=== PATIENT | male | born 1960 | race Caucasian/White ===

== ENCOUNTER 2019-03-27 12:13 | Inpatient (IN) | payer BC ==
--- NOTE | 2019-03-20 15:25 | HP ---
AMENDED REPORT NOW INCLUDES DESIGNATED COSIGNER PREOPERATIVE HISTORY AND PHYSICAL: DATE OF SCHEDULED SURGERY: 03/27/19 DATE OF OFFICE VISIT: 03/19/19 ATTENDING PHYSICIAN: Dr. Latanya Clark.* (DICTATED BY PAMELLA STANTON) SURGERY SCHEDULED: Left total knee arthroplasty. CHIEF COMPLAINT: Left knee pain. HISTORY OF PRESENT ILLNESS: Mr. Tracey is a 58-year-old male with severe left knee pain secondary to advanced osteoarthritis. He has difficulty weightbearing and walking more than a block. He has failed conservative management with anti- inflammatories, pain medications, steroid injection, viscosupplementation injections, and physical therapy. He has now elected to proceed with left total knee arthroplasty. PAST MEDICAL HISTORY: Significant for hypertension, hypercholesterolemia, questionable colitis. PAST SURGICAL HISTORY: He has had previous right knee arthroscopy, right total knee arthroplasty done in [place], bilateral carpal tunnel release, tonsillectomy, bilateral cataract surgery, left knee arthroscopy. MEDICATIONS: 1. Lisinopril 40 mg daily. 2. Spironolactone 25 mg half tab p.o. daily. 3. Hydrochlorothiazide 25 mg 1 p.o. daily. 4. Alfuzosin ER 10 mg p.o. daily. 5. Fenofibrate 48 mg daily. 6. Simvastatin 20 mg q.h.s. ALLERGIES: No known drug allergies. FAMILY HISTORY: Sister with a history of hypertension. Mother with a history of liver cancer and father with a history of liver cancer, both . Daughter with a history of ulcerative colitis. SOCIAL HISTORY: The patient lives with his spouse. He is retired from [employer]. He is a former smoker. He does not use alcohol. Denies illicit drug use. REVIEW OF SYSTEMS: The patient denies recent loss of consciousness, lightheadedness, dizziness, shortness of breath, chest pain, or palpitations. He has had a bout of diarrhea that lasted roughly 5 days. It was felt to be a bout of colitis. He was placed on prednisone for 2 days and this has resolved. He denies urinary symptoms. PHYSICAL EXAMINATION GENERAL: He is a well-developed, well-nourished 58-year-old male, pleasant, cooperative, in no acute distress. VITAL SIGNS: Show a height of 73 inches, weight 275, pulse 69, BP 124/78, temperature 96.4. HEENT: PERRLA. EOMI. LUNGS: Clear to auscultation without wheeze. HEART: Regular rate and rhythm. No murmur auscultated. ABDOMEN: Obese, soft, nontender, nondistended. Normoactive bowel sounds x4. EXTREMITIES: Left lower extremity shows the patient's skin to be intact. No abrasions or open wounds. There is tenderness along the medial joint line with noted mild effusion, 10 degrees to 120 degrees flexion with patellofemoral crepitus and pain. There is no varus or valgus instability. His neurovascular status is intact distally. He has active dorsiflexion of the left ankle. DIAGNOSTIC STUDIES/LAB DATA: Radiographs of the left knee revealed bone-on- bone contact of the patellofemoral compartment with noted tricompartmental joint space narrowing and osteophyte formation with subchondral sclerosis. ASSESSMENT: Advanced osteoarthritis of the left knee. PLAN: The patient is scheduled to undergo left total knee arthroplasty, . He has been cleared for surgery by his primary care provider. He will follow up in 10 to 14 days postoperatively for suture removal. PAMELLA STANTON [id number]/[facility] #: [id number] MTDD
[~2019-03-27 12:13] MED LIST: Acetaminophen TAB* 325 MG PO ONE; Buffered Lidocaine 1% SYRIN* 1 ML/SYRINGE INTRADERM ONE; Famotidine IV* 10 MG/ML 2 ML (20 mg) IV ONE; Gabapentin CAP(*) 300 MG PO ONE; Lactated Ringers 1000 ML Bag* 1,000 ML IV SCH; Tranexamic Acid 1,000 MG in NS 0.9% 50 ML* (outpatient use) IV SCH; celeCOXIB CAP* 200 MG PO ONE
[2019-03-27] MEDS ORDERED: Buffered Lidocaine 1% SYRIN* 1 ML/SYRINGE INTRADERM ONE (12:39)
[2019-03-27] MEDS ORDERED: Acetaminophen TAB* 325 MG ONE (12:39)
[2019-03-27] MEDS ORDERED: Famotidine IV* 10 MG/ML 2 ML (20 mg) ONE (12:39)
[2019-03-27] MEDS ORDERED: Gabapentin CAP(*) 300 MG ONE (12:39)
[2019-03-27] MEDS ORDERED: celeCOXIB CAP* 200 MG ONE (12:39)
[2019-03-27] MEDS ORDERED: ceFAZolin 2 GM in NS PREMIX(*) 2 GM/100 ML BAG IVPB ONE (12:40)
[2019-03-27] MEDS ORDERED: Dexamethasone IV* 4 MG/ML 1 ML (4 MG) ONE (13:02)
[2019-03-27] MEDS ORDERED: Midazolam* 1 MG/ML 10 ML VIAL (10 MG) ONE (13:02)
[2019-03-27] MEDS ORDERED: KETAMINE HCL* 50 MG/ML 10 ML VIAL ONE (13:02)
[2019-03-27] MEDS ORDERED: fentaNYL* 50 MCG/ML 2 ML VIAL (100 MCG VIAL) ONE ×2 (13:02→17:45)
[2019-03-27] MEDS ORDERED: Ondansetron INJ* 2 MG/ML VIAL ONE (13:02)
[2019-03-27] MEDS ORDERED: Propofol* 10 MG/ML 20 ML BTL ONE (13:02)
[2019-03-27] MEDS ORDERED: ROPIVACAINE 5 MG/ML 30 ML BTL (0.5%) ONE ×3 (13:02→16:32)
[2019-03-27] MEDS ORDERED: Lidocaine 2% PF * 5 ML VIAL ONE ×2 (13:02→15:21)
[2019-03-27] MEDS ORDERED: ceFAZolin 1 GM ADVAN(*) 1 GM ADDV.VIAL IVPB ONE (13:24)
--- OUTSIDE RECORDS SUMMARY | 2019-03-27 14:31 | XMS REPORT | Continuity of Care Document ---
:1960 External Reference #:[id number] Author Name Venus Gregory Care Team Providers Name Role Phone John Castillo MD Primary Care Physician Unavailable Payers Date Identification Numbers Payment Provider Subscriber Policy Number: [id number] BS Facets John Tracey PayID: [id number] [address] [address] [place] [address] Problems Active Problems Provider Date Localized, primary osteoarthritis Latanya Clark M.D. Onset: 01/27/2019 Localized, primary osteoarthritis of the pelvic Latanya Clark M.D. Onset: region and thigh Other tear of medial meniscus, current injury, Latanya Clark M.D. Onset: left knee, subsequent encounter Family History Date Family Member(s) Observation Comments General Hypertension General Cancer Social History Type Date Description Comments Sex Unknown Lives With Spouse Occupation Retired ETOH Use Currently consumes alcohol Tobacco Use Start: Unknown End: Patient is a former smoker Unknown Smoking Status Reviewed: 03/10/19 Patient is a former smoker Exercise Type/Frequency Exercises regularly Allergies, Adverse Reactions, Alerts Description No Known Drug Allergies Medications Active Medications SIG Qnty Indications Ordering Date Provider [place] take 1 tab by 30tabs Latanya Clark, 02/17/2019 5-325mg Tablets mouth every 8 M.D. hours as needed for pain Tramadol HCL 1 tab every 8 21tabs Latanya Clark, 02/03/2019 50mg Tablets hours as M.D. needed for pain Voltaren 4 grams four 100gm Ankit Marianela, 01/13/2019 1% Gel times daily MD to left knee and left hip as needed for pain Lisinopril 1 by mouth Unknown 40mg Tablets every day Spironolactone 1/2 by mouth Unknown 25mg Tablets every day Hydrochlorothiazide 1 by mouth Unknown 25mg Tablets every day Alfuzosin HCL ER 1 by mouth Unknown 10mg Tablets ER every day 24HR Fenofibrate Unknown 50mg Capsules Medications Administered in Office Medication SIG Qnty Indications Ordering Provider Date Synvisc Or Synvisc-One Injection 1 Latanya Clark M.D. 02/17/2019 MG Injection Depomedrol 40MG Latanya Clark M.D. 01/13/2019 Injection Vital Signs Date Vital Result Comment 03/10/2019 8:49am Height 73 inches 6'1" Weight 271.00 lb BP Systolic 132 mmHg BP Diastolic 82 mmHg Respiratory Rate 18 /min Body Temperature 96.0 F Pain Level 6 BMI (Body Mass Index) 35.8 kg/m2 02/17/2019 1:12pm Height 73 inches 6'1" Weight 271.00 lb Heart Rate 76 /min Respiratory Rate 16 /min Pain Level 7 BMI (Body Mass Index) 35.8 kg/m2 02/06/2019 9:00am Height 73 inches 6'1" Weight 270.00 lb Heart Rate 55 /min BP Systolic 138 mmHg BP Diastolic 80 mmHg Body Temperature 98.0 F Pain Level 8 BMI (Body Mass Index) 35.6 kg/m2 01/27/2019 8:00am Height 73 inches 6'1" Heart Rate 70 /min BP Systolic 152 mmHg BP Diastolic 86 mmHg Respiratory Rate 16 /min Body Temperature 97.0 F Pain Level 6 01/13/2019 10:34am Height 73 inches 6'1" Weight 273.00 lb Heart Rate 72 /min BP Systolic 122 mmHg BP Diastolic 72 mmHg Respiratory Rate 12 /min Pain Level 5 BMI (Body Mass Index) 36.0 kg/m2 Procedures Date Code Description Status 02/17/201993015 Inject/Drain Joint/Bursa Major W/O US Completed 01/13/201945352 Inject/Drain Joint/Bursa Major W/O US Completed Encounters Type Date Location Provider Dx Diagnosis Office Visit 02/06/2019 [facility] Iliana Granados M25.562 Pain in left knee 9:15a [facility] M17.12 Unilateral primary osteoarthritis, left knee Office Visit 01/27/2019 8:00a [facility] Latanya Eduardo, M25.562 Pain in left Of C.M.Violet Suresh.Alex knee M17.12 Unilateral primary osteoarthritis, left knee M25.552 Pain in left hip M16.12 Unilateral primary osteoarthritis, left hip S83.242A Oth tear of medial meniscus, current injury, left knee, init Office Visit 01/13/2019 10:00a [facility] Latanya Clark, M25.562 Pain in left Of C.M.Violet Randhawa knee M17.12 Unilateral primary osteoarthritis, left knee M25.552 Pain in left hip M16.12 Unilateral primary osteoarthritis, left hip M23.8x2 Other internal derangements of left knee Plan of Treatment Future Appointment(s):04/01/2019 9:30 am - Latanya Clark M.D. at [facility]03/19/2019 9:30 am - Latanya Clark M.D. at [facility]03/10/2019 - Latanya Clark M.D.M25.562 Pain in left kneeFollow up:Follow up: 7-10 days before xcnhdhyZ78.12 Unilateral primary osteoarthritis, left kneeM25.462 Effusion, left knee
--- OUTSIDE RECORDS SUMMARY | 2019-03-27 14:31 | XMS REPORT | Continuity of Care Document ---
:1960 External Reference #:[id number] Author Name Latanya Clark M.D. (transmitted by agent of provider Katiana Khan) Address [address] [place] [id number] Care Team Providers Name Role Phone John Castillo MD - Family Medicine Care Team Information Managing Manager Problems Active Problems Provider Date Localized, primary osteoarthritis Latanya Clark M.D. Onset: 01/27/2019 Localized, primary osteoarthritis of the pelvic Latanya Clark M.D. Onset: region and thigh Other tear of medial meniscus, current injury, Latanya Clark M.D. Onset: left knee, subsequent encounter Social History Type Date Description Comments Sex Unknown ETOH Use Currently consumes alcohol Tobacco Use Start: Unknown End: Patient is a former smoker Unknown Smoking Status Reviewed: 03/19/19 Patient is a former smoker Exercise Type/Frequency Exercises regularly Allergies, Adverse Reactions, Alerts Description No Known Drug Allergies Medications Active Medications SIG Qnty Indications Ordering Date Provider Cyclobenzaprine HCL take 1 tab 30tabs Latanya Clark, 03/13/2019 10mg Tablets three times a M.D. day as needed for pain/muscle spasms [facility] take 1 tab by 30tabs Latanya Clark, [...] Depomedrol 40MG Latanya Clark M.D. 01/13/2019 Injection Immunizations Description No Information Available Vital Signs Date Vital Result Comment 03/19/2019 9:49am Height 73 inches 6'1" Weight 275.00 lb Heart Rate 69 /min BP Systolic 124 mmHg BP Diastolic 78 mmHg Body Temperature 96.4 F O2 % BldC Oximetry 97 % BMI (Body Mass Index) 36.3 kg/m2 03/10/2019 8:49am Height 73 inches 6'1" Weight 271.00 lb BP Systolic 132 mmHg BP Diastolic 82 mmHg Respiratory Rate 18 /min Body Temperature 96.0 F Pain Level 6 BMI (Body Mass Index) 35.8 kg/m2 Results Test Date Facility Test Result H/L Range Note Inr/Protime [facility] Inr 0.97 Normal 0.82-1.09 1 , [address] [place], [place] [id number] [phone] Laboratory test [facility] Partial 32.7 seconds Normal 26.0-38.0 3 finding [address] [place] [address] PTT [phone] Type & Screen [facility] Patient AB Negative [address] [place] [address] [phone] Antibody Screen NEGATIVE 1 PAIN IN LEFT KNEE, UNILATERAL PRIMARY OSTEOARTHRIT 2 Standard intensity warfarin therapeutic range: 2.0-3.0 High intensity warfarin therapeutic range: 2.5-3.5 3 AA 03/27 Procedures Date Code Description Status 02/17/2019 Inject/Drain Joint/Bursa Major W/O US Completed 01/13/2019 Inject/Drain Joint/Bursa Major W/O US Completed Medical Devices Description No Information Available Encounters Type Date Location Provider Dx Diagnosis Office Visit 03/10/2019 Orthopedic Latanya Clark, M25.562 Pain in left knee 8:45a [facility]hawa M17.12 Unilateral primary osteoarthritis, left knee M25.462 Effusion, left knee Office Visit 02/06/2019 9:15a [facility]opedic Iliana Keene M25.562 Pain in [facility] left knee M17.12 Unilateral primary osteoarthritis, left knee Office Visit 01/27/2019 8:00a [facility] Latanya Clark M25.562 Pain in left Of Yuriy Randhawa knee M17.12 Unilateral primary osteoarthritis, left knee M25.552 Pain in left hip M16.12 Unilateral primary osteoarthritis, left hip S83.242A Oth tear of medial meniscus, current injury, left knee, init Office Visit 01/13/2019 10:00a [facility] Latanya Clark, M25.562 Pain in left Of Yuriy Randhawa knee M17.12 Unilateral primary osteoarthritis, left knee M25.552 Pain in left hip M16.12 Unilateral primary osteoarthritis, left hip M23.8x2 Other internal derangements of left knee Assessments Date Code Description Provider 03/19/2019 M25.562 Pain in left knee Latanya Clark M.D. 03/19/2019 M17.12 Unilateral primary osteoarthritis, left knee Latanya Clark M.D. 03/10/2019 M25.562 Pain in left knee Latanya Clark M.D. 03/10/2019 M17.12 Unilateral primary osteoarthritis, left knee Latanya Clark M.D. 03/10/2019 M25.462 Effusion, left knee Latanya Clark M.D. 02/17/2019 M25.562 Pain in left knee Latanya Clark M.D. 02/17/2019 M17.12 Unilateral primary osteoarthritis, left knee Latanya Clark M.D. 02/06/2019 M25.562 Pain in left knee PAMELLA Valdez 02/06/2019 M17.12 Unilateral primary osteoarthritis, left knee PAMELLA Valdez 01/27/2019 M25.562 Pain in left knee Kerwin Arango.Alex 01/27/2019 M17.12 Unilateral primary osteoarthritis, left knee Latanya Clark M.D. 01/27/2019 M25.552 Pain in left hip Latanya Clark M.D. 01/27/2019 M16.12 Unilateral primary osteoarthritis, left hip Latanya lCark M.D. 01/27/2019 S83.242A Other tear of medial meniscus, current Latanya Clark M.D. injury, left knee, in 01/13/2019 M25.562 Pain in left knee Kerwin Arango.Alex 01/13/2019 M17.12 Unilateral primary osteoarthritis, left knee Latanya Clark M.D. 01/13/2019 M25.552 Pain in left hip Latanya Clark M.D. 01/13/2019 M16.12 Unilateral primary osteoarthritis, left hip Latanya Clark M.D. 01/13/2019 M23.8x2 Other internal derangements of left knee Latanya Clark M.D. Plan of Treatment Future Appointment(s):04/09/2019 1:45 pm - [facility] 3:30 pm - DEONTE Fisher [facility]03/27/2019 3:30 pm - DEONTE Sage [facility]03/27/2019 3:30 pm - [facility]03/19/2019 - Latanya Clark M.D.M25.562 Pain in left kneeFollow up:Follow up: 10- 14 days post opM17.12 Unilateral primary osteoarthritis, left knee Functional Status Description No Information Available Mental Status Description No Information Available Referrals Description No Information Available
--- OUTSIDE RECORDS SUMMARY | 2019-03-27 14:31 | XMS REPORT | Continuity of Care Document ---
:1960 External Reference #:[id number] Author Name Calos Santizo Care Team Providers Name Role Phone John Castillo MD Primary Care Physician Unavailable Payers Date Identification Numbers Payment Provider Subscriber Policy Number: [id number] BS Facets John Tracey PayID: [id number] [address] [address] [place] [address] Problems Active Problems Provider Date Localized, primary [...] M.D. day as needed for pain/muscle spasms [place] take 1 tab by 30tabs Latanya Clark, [...] Injection Vital Signs Date Vital Result Comment 03/19/2019 [...] 36.0 kg/m2 Procedures Date Code Description Status 02/17/2019 38876 Inject/Drain Joint/Bursa Major W/O US Completed 01/13/2019 64570 Inject/Drain Joint/Bursa Major W/O US Completed Encounters Type Date Location Provider Dx Diagnosis Office Visit 02/06/2019 [facility] Iliana Granados M25.562 Pain in left knee 9:15a [facility] M17.12 Unilateral primary osteoarthritis, left knee Office Visit 01/27/2019 8:00a [facility] Latanya Clark, M25.562 Pain in left Of C.Abel Randhawa knee M17.12 Unilateral primary osteoarthritis, left knee M25.552 Pain in left hip M16.12 Unilateral primary osteoarthritis, left hip S83.242A Oth tear of medial meniscus, current injury, left knee, init Office Visit 01/13/2019 10:00a [facility] Latanya Clark, M25.562 Pain in left Of C.Abel Randhawa knee M17.12 Unilateral primary osteoarthritis, left knee M25.552 Pain in left hip M16.12 Unilateral primary osteoarthritis, left hip M23.8x2 Other internal derangements of left knee Plan of Treatment Future Appointment(s):04/09/2019 1:45 pm - Harris Plaza PA-C at [facility]03/27/2019 12:30 pm - DEONTE Fisher at [facility]03/27/2019 12:30 pm - DEONTE Sage at [facility]03/27/2019 12:30 pm - Latanya Clark M.D. at [facility]03/19/2019 - Latanya Clark M.D.M25.562 Pain in left kneeFollow up:Follow up: 10- 14 days post opM17.12 Unilateral primary osteoarthritis, left knee
[2019-03-27] MEDS ORDERED: Bupivacaine 0.5% SDV PF* 30ML VIAL ONE (14:43)
[2019-03-27] MEDS ORDERED: Labetalol IV* 5 MG/ML 20 ML VIAL ONE (15:38)
[2019-03-27] MEDS ORDERED: Naloxone* 0.4 MG/ML 1 ML VIAL IV PRN (17:19)
[2019-03-27] MEDS ORDERED: HYDROmorphone INJ1* 1 MG/ML SYRINGE IV PRN (17:19)
[2019-03-27] MEDS ORDERED: Ondansetron INJ* 2 MG/ML VIAL IV PRN ×2 (17:19→17:54)
[2019-03-27] MEDS ORDERED: fentaNYL* 50 MCG/ML 2 ML VIAL (100 MCG VIAL) IV PRN (17:19)
[2019-03-27] MEDS ORDERED: Midazolam* 1 MG/ML 2 ML VIAL (2 MG) ONE (17:33)
[2019-03-27] MEDS ORDERED: Magnesium Hydroxide LIQ* 30 ML UDC PO PRN (17:47)
[2019-03-27] MEDS ORDERED: traMADol TAB* 50 MG PO PRN (17:54)
[2019-03-27] MEDS ORDERED: diPHENhydraMINE PO* 25 MG PO PRN (17:54)
[2019-03-27] MEDS ORDERED: diPHENhydraMINE IV* 50 MG/ML 1 ml VIAL (BENADRYL) IV PRN (17:54)
[2019-03-27] MEDS ORDERED: Polyethylene Glycol 3350* 17 GM PACKET PO PRN (17:54)
[2019-03-27] MEDS ORDERED: Bisacodyl SUPP* 10 MG SUPP PR PRN (17:54)
[2019-03-27] MEDS ORDERED: Cyclobenzaprine TAB* 10 MG PO PRN (17:54)
[2019-03-27] MEDS ORDERED: oxyCODONE/Acetamin 5/325 MG* TAB PO PRN (17:57)
[2019-03-27] MEDS ORDERED: Lactated Ringers 1000 ML Bag* 1,000 ML IV SCH (18:00)
--- NOTE | 2019-03-27 20:04 | CONS ---
CONSULTATION REPORT: DATE OF CONSULT: 03/27/19 PRIMARY CARE PROVIDER: Dr. Castillo. ORTHOPEDIC SURGEON: Dr. Clark. REQUESTING PROVIDER: Dr. Clark. REASON FOR CONSULT: Medical co-management. HISTORY OF PRESENT ILLNESS: Mr. Tracey is a 58-year-old male with a history of hypertension and hyperlipidemia, who has severe left knee osteoarthritis and underwent an elective left total knee arthroplasty. The patient was seen in the immediate postoperative period. He is quite drowsy at this point. He does not answer many of my questions. He is able to tell me as well as nursing that his feet are bothering him. He states that they feel itchy. PAST MEDICAL HISTORY: 1. Hypertension. 2. Hyperlipidemia. 3. Possible colitis. PAST SURGICAL HISTORY: 1. Right knee arthroscopy. 2. Right knee arthroplasty. 3. Bilateral carpal tunnel release. 4. Tonsillectomy. 5. Bilateral cataract surgery. 6. Left knee arthroscopy. MEDICATIONS: Current active hospital medications are reviewed. ALLERGIES: No known drug allergies. FAMILY HISTORY: Mom had a history of liver cancer. Dad had history of liver cancer. Both are . The patient has a sister with hypertension and his daughter has ulcerative colitis. SOCIAL HISTORY: The patient is . He is a former smoker. He does not drink. He is retired from [employer]. REVIEW OF SYSTEMS: Unobtainable due to the patient's drowsiness. PHYSICAL EXAM: Blood pressure 91/65, pulse 66, respirations 9, temp 97, O2 sat 95% on 6 L. General: The patient is a well-developed, middle-aged male seen in the PACU, lying in a stretcher, drowsy, but arousable to calling his name and light touch. Cardiac: Normal S1, S2. Regular rate and rhythm. I do not appreciate any murmurs. There is no lower extremity edema. Pulmonary: Lungs are clear to auscultation anteriorly and at the lateral bases. Abdomen: Bowel sounds present. Abdomen is soft, nontender, nondistended. Musculoskeletal: The patient's left knee is in a surgical dressing. It is not taken down by myself. There are no obvious joint deformities. Skin is warm and dry. There are no rashes. Neuro exam is deferred. Psych: The patient again is quite drowsy and the rest of the exam is deferred. ASSESSMENT AND PLAN: Mr. Tracey is a 58-year-old male with a history of hypertension, obesity, and hyperlipidemia who is seen for medical co-management. 1. Left total knee arthroplasty. Management of this is as per Orthopedics including DVT prophylaxis. 2. Hypertension. BP currently is soft. I am going to hold his hydrochlorothiazide tomorrow morning. We will continue his lisinopril, though I will put hold parameters. These will likely be able to be restarted tomorrow , though I did not want the patient to inadvertently receive these when his blood pressure is still soft. 3. Hyperlipidemia. We will continue statin and fenofibrate. 4. Hypoxia. The patient is moderately hypoxic in the recovery room. He is again quite drowsy at this time. With recovery, I would like to see his O2 requirements decrease. He is obese and perhaps there is a component of obstructive sleep apnea. We will monitor his respiratory status and O2 saturations. 5. DVT prophylaxis: The patient is to start on Eliquis tomorrow morning per Orthopedics. 6. Code status is full. TIME SPENT: Thirty minutes was spent on this consultation. [id number]/[facility] #: [id number] DINO
[2019-03-27] MEDS ORDERED: Apixaban* 2.5 MG TAB PO SCH (21:00)
[2019-03-27] MEDS: Docusate CAP* 100 MG PO SCH (21:26)
[2019-03-27] MEDS: oxyCODONE TAB* 5 MG TAB PO PRN (21:26)
[2019-03-27] MEDS: Acetaminophen TAB* 325 MG PO SCH (21:28)
[2019-03-27] MEDS: Magnesium Hydroxide LIQ* 30 ML UDC PO SCH (21:29)
--- NOTE | 2019-03-27 22:57 | OP ---
Operative Report - Blank - Operative Report Date of Operation: 03/27/19 Note: MARIAJOSE MALONE 1960 Date of Surgery: 03/27/19 Latanya Clark MD Hand Hardener: Alex CAN did help throughout the procedure with preparation of the knee, wound retraction, manipulation of the knee, and wound closure. Anesthesiologist: Aj Mir MD Anesthesia Type: Spinal Preoperative Diagnosis: Left severe degenerative osteoarthritis of the knee Postoperative Diagnosis: As above Procedure Performed: Left Total Knee Arthroplasty Tourniquet time: 52 minutes Complications: None Specimen: Bone and cartilage from the Left knee joint sent to pathology. Hardware Used: Cemented Dugan and Nephew total knee hardware was used - For the femur a size 7 left oxinium legion posterior stabilized femoral component, for the tibia a size 6 left teresa II tibial baseplate, for the insert a size 11mm 5-6 posterior stabilized articular polyethylene insert, and for the patella a size 38 3-peg all poly patella. Brief History/Indication: MARIAJOSE MALONE was known in clinic and had a history of severe left knee pain and swelling. He failed conservative treatment with anti-inflammatories, pain pills, intra-articular injections and physical therapy. He elected to undergo left total knee arthroplasty due to continued pain and decreased quality of life. Radiographs showed severe end stage osteoarthritis of the knee with bone on bone contact. Informed consent was obtained from the patient. He understood the risks of surgery included but were not limited to: bleeding, infection, damage to nearby structures, intraoperative fracture, nerve palsy, failure of the hardware, early loosening, knee stiffness or loss of motion, anesthesia complications, stroke, heart attack , blood clot and . He wished to proceed. Intra-Operative Findings: Intraoperatively the patient was noted to have severe loss of cartilage in all 3 compartments of the knee. Description of the Procedure: MARIAJOSE MALONE was identified in the preanesthesia unit. His left knee was marked as the correct operative side. Informed consent was signed and placed in the chart. The patient was taken to the operating room and placed under anesthesia without complication. A kramer catheter was placed. A tourniquet was placed on the left thigh. The left lower extremity was prepped and draped in the usual sterile fashion. Preoperative time-out was made to correctly identify the patient, side and site. Appropriate intraoperative antibiotics were given within one hour of incision. Tourniquet was inflated. A midline incision was made and carried sharply down to the extensor mechanism. A new 10 blade was used to make a standard medial parapatellar arthrotomy. The patella was subluxed laterally. Electrocautery was used to dissect soft tissue off the superomedial tibia to the midsagittal plane. The knee was flexed up. The anterior horn of the lateral meniscus and the ACL were sharply incised. A drill was used to enter the distal femur. The intramedullary distal femoral cutting guide was pinned on the distal femur. The oscillating saw was used to make the distal femoral cut. The external rotation guide was pinned on the distal femur and the distal femur was sized to a size 7. The size 7 multi-cutting jig was pinned on the distal femur. The oscillating saw was used to make the appropriate 4 chamfer cuts. Next the PCL was completely released. The extramedullary tibial cutting guide was pinned on the proximal tibia and the oscillating saw was used to make the proximal tibial cut perpendicular to the mechanical axis of the tibia. The bone was carefully removed. The knee was brought out into full extension. The spacer block was placed and had excellent fit with the knee in full extension. The medial and lateral ligaments were well balanced. The flexion and extension gaps were well balanced. The knee was flexed up. Lamina nicker and breaker was placed both medially and laterally. Any remaining meniscus was removed with electrocautery. Curved osteotome was used to remove any posterior osteophytes. The tibial tray and drop vamsi were placed and confirmed a satisfactory tibial cut. The size 7 left femoral trial was impacted onto the distal femur. This trial had excellent fit and stability. The box for the posterior stabilized implant was prepared using a box cut osteotome and a reamer. Next a tibial tray trial and 9 mm insert trial was placed. The knee was taken through a range of motion and had full extension to 130 degrees of flexion. Patellofemoral tracking was satisfactory. The patella was inverted and sized to a size 38. Three peg holes were drilled through the size 38 drill guide. The trial patella was placed and the knee was taken through a range of motion. There was satisfactory patellofemoral tracking. All trials were removed. The tibia was subluxed anteriorly and sized to a size 6. The proximal tibial was prepared with a size 6 keel punch. All bony cut surfaces were irrigated with sterile saline and dried. Final implants were cemented into place starting with the tibia, followed by the femur, and last the patella. A 9 mm insert trial was placed and the knee was brought into full extension. Tourniquet was turned down and the knee was copiously irrigated with sterile saline. Electrocautery was used to obtain meticulous hemostasis. Once the cement had fully cured, the insert trial was removed. Any excess cement was removed from around the hardware and capsule. Final insert chosen was a 11 mm posterior stabilized Teresa II articular insert size 5-6. Stability of the insert was checked and noted to be stable. The extensor mechanism was closed using number 1 vicryls. The rest of the incision was closed in a layered fashion using 0 and 2-0 vicryls. The skin was closed using 3-0 nylon suture. Sterile xeroform, 4x4s and webril were used to cover the incision. Que wrap and cold pack were used to cover the dressings. The patients anesthesia was reversed without difficulty. He was taken to the PACU in stable condition. Intended weight-bearing will be as tolerated.
[2019-03-27] MEDS: ceFAZolin 1 GM ADVAN(*) 1 GM in NS 0.9% 50 ML* 50 ML IVPB SCH (23:34)
[2019-03-27] MEDS: Morphine 10 MG/ML VIAL (1 ml) IV PRN (23:35)
[2019-03-28] MEDS: oxyCODONE/Acetamin 5/325 MG* TAB PO PRN ×2 (01:13→07:52)
[2019-03-28] MEDS: Morphine 10 MG/ML VIAL (1 ml) IV PRN ×3 (02:34→11:36)
[2019-03-28] MEDS: oxyCODONE TAB* 5 MG TAB PO PRN ×3 (04:49→14:11)
[2019-03-28 05:24] LABS: Hematocrit 36 % (42-52); Hemoglobin 12.4 g/dL (14.0-18.0); Mean Platelet Volume 7.8 fL (7.4-10.4); Platelet Count 256 10^3/uL (150-450)
[2019-03-28 05:37] LABS: Calcium 8.9 mg/dL (8.6-10.3); EGFR African American 73.3 (>60); EGFR Non-African American 60.6 (>60)
[2019-03-28] MEDS: Acetaminophen TAB* 325 MG PO SCH ×2 (06:01→13:31)
[2019-03-28] MEDS: Docusate CAP* 100 MG PO SCH (07:52)
[2019-03-28] MEDS: ceFAZolin 1 GM ADVAN(*) 1 GM in NS 0.9% 50 ML* 50 ML IVPB SCH (07:53)
[2019-03-28] MEDS: Magnesium Hydroxide LIQ* 30 ML UDC PO SCH (07:54)
[2019-03-28] MEDS ORDERED: Atorvastatin* 10 MG TAB PO SCH (09:00)
[2019-03-28] MEDS ORDERED: LISINOPRIL 40 MG PO SCH (09:00)
[2019-03-28] MEDS ORDERED: Apixaban* 2.5 MG TAB PO SCH (09:00)
[2019-03-28] MEDS ORDERED: Lisinopril TAB* 10 MG PO SCH (09:00)
[2019-03-28] MEDS ORDERED: Hydrochlorothiazide TAB* 25 MG PO SCH (09:00)
[2019-03-28] MEDS ORDERED: Spironolactone TAB* 25 MG PO SCH (09:00)
[2019-03-28] MEDS ORDERED: CMCS:Alfuzosin ER (NF) 10 MG TAB.ER PO SCH (09:00)
[2019-03-28] MEDS ORDERED: oxyCODONE SR TAB(*) 15 MG TAB.SR PO PRN (10:45)
--- NOTE | 2019-03-28 11:12 | DS ---
Orthopedic Discharge Summary - Discharge Summary Date of Admission:03/27/19 Date of Discharge: 03/28/19 Date of Surgery: 03/27/19 Attending Orthopedic Provider: Dr. Clark Pre-operative Diagnosis: Degenerative arthritis left knee Operative Procedure: Left total knee arthroplasty Disposition of Patient: home Condition of Patient: stable History: MARIAJOSE MALONE is a 58 year old M with years of increasingly severe left knee pain. Patient has failed conservative management and has elected to undergo a left total knee replacement Hospital Course: MARIAJOSE was admitted to [facility] on 03/27/19. Patient underwent a left total knee without complication followed by a brief recovery in PACU and transfer to the Short Stay Surgical Unit in stable condition. Our hospitalist service, physical therapy and occupational therapy also participated in this patients care. Post-op day 1: patient was alert and in no acute distress. Dressing was clean, dry and intact. Operative extremity dorsiflexion and plantarflexion intact, sensation intact to light touch distally , DP2+. His dressing was changed, incision was clean, dry and intact. Patient was deemed to be medically and orthopedically stable for discharge. Physical therapy goals were met. Home Medications Medication Instructions Recorded Confirmed Type Alfuzosin HCl [Alfuzosin HCl ER] 10 mg PO QAM 03/19/19 03/27/19 History Fenofibrate(NF) [Tricor(NF)] 48 mg PO QAM 03/19/19 03/27/19 History Hydrochlorothiazide TAB* 25 mg PO QAM 03/19/19 03/27/19 History [Hydrodiuril TAB*] Lisinopril 40 mg PO QAM 03/19/19 03/27/19 History Simvastatin TAB(NF) [Zocor 20 MG 20 mg PO QAM 03/19/19 03/27/19 History (NF)] Spironolactone TAB* [Aldactone TAB 12.5 mg PO QAM 03/19/19 03/27/19 History 25 MG*] Apixaban* [Eliquis*] 2.5 mg PO BID #60 tab 03/28/19 Rx Docusate CAP* [Colace Cap*] 100 mg PO BID cap 03/28/19 Rx oxyCODONE SR TAB(*) [Oxycontin(*)] 30 mg PO Q12H PRN #14 tab.sr MDD 2 03/28/19 Rx oxyCODONE TAB* [Roxycodone TAB 5 10 mg PO Q4H PRN #28 tab MDD 4 03/28/19 Rx mg*] Discharge Instructions following Orthopedic Surgery: Activity: * Weight Bearing as tolerated * Continue physical therapy and occupational therapy exercises as shown Wound care: * OK to shower on post-op day 3, no bathing, swimming, or submerging wound. * Use gentle soap, pat dry. Cover with gauze, NIKKI wrap or tape. * Visiting home nurse to do wound checks. Call Orthopedic office for: * Increased drainage * Redness * Increased pain * Fever Go to ER with shortness of breath or chest pain. Diet: * Regular diet * Increase fluids and fiber to prevent constipation. * Continue to use stool softeners, call office if no bowel motion within 48 hours. Medications See Home Medication List in your packet for medications that you should take after discharge. DVT Prophylaxis: Eliquis Dosin.5 mg, 1 tab every 12 hours x 30 days Pain Control: Oxycontin ER 30 mg by mouth twice daily as needed for pain. Oxycodone 10 mg q 4 hrs prn breakthru pain Antibiotics are required prior to any dental work. FOLLOW UP: Follow up with Dr. Clark Within 10-14 days, call for appointment Please call our office with any questions or concerns ([phone])
[2019-03-28] MEDS ORDERED: Cephalexin CAP* 500 MG PO ONE (15:00)
[2019-03-28 15:40] VITALS: BP 123/58
== END 2019-03-28 16:55 | disposition home or self-care (01) | DRG 302 ==
LOC: AA 12:13 → SSU 20:10
PROVIDERS: ADMIT Orthopaedic Surgery Adult Reconstructive Orthopaedic Surgery; ATTEND Orthopaedic Surgery Adult Reconstructive Orthopaedic Surgery
PROC: 0SRD069 Replacement of Left Knee Joint with Oxidized Zirconium on Polyethylene Synthetic Substitute, Cemented, Open Approach (ICD-10-PCS; principal; 2019-03-27 15:00)
DX: M17.12 Unilateral primary osteoarthritis, left knee (principal); I10 Essential (primary) hypertension; M25.762 Osteophyte, left knee; E78.5 Hyperlipidemia, unspecified; R09.02 Hypoxemia; E66.9 Obesity, unspecified; E78.00 Pure hypercholesterolemia, unspecified; R31.9 Hematuria, unspecified; Z96.651 Presence of right artificial knee joint; Z98.42 Cataract extraction status, left eye; Z98.41 Cataract extraction status, right eye; Z82.49 Family history of ischemic heart disease and other diseases of the circulatory system; Z79.01 Long term (current) use of anticoagulants; Z80.8 Family history of malignant neoplasm of other organs or systems; Z83.79 Family history of other diseases of the digestive system; Z87.891 Personal history of nicotine dependence; Z68.36 Body mass index [BMI] 36.0-36.9, adult
CPT/HCPCS: 36415; 80048; 85014; 85018; 85049; 88305; 88311; A9270-GY; C1776; J0690; J1100; J2250; J2270; J2405; J2704; J2795; J3010; J3490

== ENCOUNTER 2019-04-10 10:51 | Observation (INO) | payer BC ==
--- NOTE | 2019-04-10 11:34 | ED ---
Complex/Multi-Sys Presentation - HPI Summary HPI Summary: This patient is a 58 year old M presenting to [facility] with a chief complaint of generalized weakness and fatigue since 10 days ago. Pt says he developed his weakness shortly after getting his left knee replacement on March 27, 2019. He had a right knee replacement 7 years ago, but did not have these symptoms. Pt has low BP at the moment and states he is able to ambulate. His PCP took him off Lisinopril and hydrochlorothiazide yesterday as he had relatively low BP. His states pt had dark, tea colored urine in the past few days. The patient rates the pain 0/10 in severity. Symptoms aggravated by nothing. Symptoms alleviated by nothing. Pt reports dizziness, nausea, loss of appetite, weight loss, not feeling well, diaphoresis and chills during the night. Pt denies any fever, erythema of eyes, sore throat, CP, SOB, cough, abdominal pain , vomiting, dysuria, hematuria, myalgia, edema, rash. PMHx of HTN and high cholesterol. - History Of Current Complaint Chief Complaint: EDGeneral Time Seen by Provider: 04/10/19 10:59 Hx Obtained From: Patient Onset/Duration: Sudden Onset, Lasting Days - 10, Still Present Timing: Constant Severity Currently: Mild Severity Initially: Mild Aggravating Factor(s): nothing Alleviating Factor(s): nothing Associated Signs And Symptoms: Positive: Weakness, Nausea, Other - positive - fatigue, dizziness, loss of appetite, weight loss, not feeling well, diaphoresis and chills during the night, dark colored urine. negative - erythema of eyes, sore throat, SOB, hematuria, myalgia, rash.. Negative: Cough , Chest Pain, Edema, Vomiting, Abdominal Pain, Dysuria, Fever - Allergies/Home Medications Allergies/Adverse Reactions: Allergies Allergy/AdvReac Type Severity Reaction Status Date / Time No Known Allergies Allergy Verified 04/10/19 10:52 PMH/Surg Hx/FS Hx/Imm Hx Previously Healthy: No Endocrine/Hematology History: Denies: Hx Diabetes Cardiovascular History: Reports: Hx Hypertension Denies: Hx Pacemaker/ICD Respiratory History: Reports: Hx Sleep Apnea Denies: Hx Asthma History: Denies: Hx Renal Disease Musculoskeletal History: Reports: Hx Arthritis Sensory History: Reports: Hx Hearing Aid - BILAT Denies: Hx Contacts or Glasses Opthamlomology History: Denies: Hx Contacts or Glasses Psychiatric History: Denies: Hx Panic Disorder - Cancer History Hx Chemotherapy: No - Surgical History Surgical History: Yes Surgery Procedure, Year, and Place: LEFT KNEE MENISCUS/ARTHROSCOPIC SCRAPPING SURGERY;. RIGHT KNEE REPLACEMENT;. BILAT CARPAL TUNNEL;. CATARACTS;. TONSILLECTOMY; Hx Anesthesia Reactions: No Infectious Disease History: No Infectious Disease History: Denies: Traveled Outside the [place] in Last 30 Days - Family History Known Family History: Positive: None - Social History Alcohol Use: Rare Substance Use Type: Reports: None Smoking Status (MU): Former Smoker Review of Systems Constitutional: Other - positive - loss of appetite, weight loss, not feeling well Positive: Chills - during night, Fatigue, Skin Diaphoresis - during night. Negative: Fever Negative: Erythema Negative: Sore Throat Negative: Chest Pain Negative: Shortness Of Breath, Cough Positive: Nausea. Negative: Abdominal Pain, Vomiting Genitourinary: Other - positive - dark colored urine Negative: dysuria, hematuria Negative: Myalgia, Edema Negative: Rash Neurological: Other - positive - dizziness Positive: Weakness - generalized All Other Systems Reviewed And Are Negative: Yes Physical Exam - Summary Physical Exam Summary: Constitutional: Well-developed, Well-nourished, Alert. (-) Distressed. Mildly confused Skin: Warm, Dry HENT: Normocephalic; Atraumatic Eyes: Conjunctiva normal Neck: Musculoskeletal ROM normal neck. (-) JVD, (-) Stridor, (-) Tracheal deviation Cardio: Rhythm regular, rate normal, Heart sounds normal; Intact distal pulses; The pedal pulses are 2+ and symmetric. Radial pulses are 2+ and symmetric. (-) Murmur Pulmonary/Chest wall: Effort normal. (-) Respiratory distress, (-) Wheezes, (-) Rales Abd: Soft, General ABD pain to palpation, more pain at RLQ and LLQ, (-) Distension, (-) Guarding, (-) Rebound Musculoskeletal: (-) Edema. Left lower back pain. Left CVA tenderness Lymph: (-) Cervical adenopathy Neuro: Alert, Oriented x3 Psych: Mood and affect Normal Triage Information Reviewed: Yes Vital Signs On Initial Exam: Initial Vitals Temp Pulse Resp BP Pulse Ox 97.1 F 74 18 120/85 100 04/10/19 10:52 04/10/19 10:52 04/10/19 10:52 04/10/19 10:52 04/10/19 10:52 Vital Signs Reviewed: Yes Diagnostics - Vital Signs Vital Signs Temp Pulse Resp BP Pulse Ox 04/10/19 10:52 97.1 F 74 18 120/85 100 - Laboratory Result Diagrams: 04/10/19 11:28 04/10/19 11:28 Lab Statement: Any lab studies that have been ordered have been reviewed, and results considered in the medical decision making process. - CT Abd/Pel CT Interpretation Completed By: Radiologist Summary of CT Findings: IMPRESSION: 1. Negative for urolithiasis or hydronephrosis. 2. Follow-up LEFT renal ultrasound suggested to differentiate between a 1.8 cm hyperdense cyst and a solid lesion at the upper pole of the LEFT kidney. 3. Normal appendix documented. Mild colonic diverticulosis. No acute pathologic process of the alimentary tract evident. These findings were reviewed by Dr. Sanchez. - Ultrasound Renal Ultrasound Interpretation Completed By: Radiologist Summary of Ultrasound Findings: IMPRESSION: 1. Stigmata of medical renal disease. 2. Minimally complex Bosniak II cyst versus immediately adjacent simple cysts superior pole LEFT kidney corresponding with the hypodense lesion on CT without concern. These findings were reviewed by Dr. Sanchez. - EKG 1115 Cardiac Rate: NL - 69 EKG Rhythm: Sinus Rhythm Summary of EKG Findings: EKG at 1115 shows 69 BPM, sinus rhythm, no STEMI Complex Multi-Symp Course/Dx Course Of Treatment: This patient is a 58 year old M presenting to [facility] with a chief complaint of generalized weakness and fatigue since 10 days ago. Pt says he developed his weakness shortly after getting his left knee replacement on March 27, 2019. He had a right knee replacement 7 years ago, but did not have these symptoms. Pt has low BP at the moment and states he is able to ambulate. His PCP took him off Lisinopril and hydrochlorothiazide yesterday as he had relatively low BP. His states pt had dark, tea colored urine in the past few days. The patient rates the pain 0/10 in severity. Symptoms aggravated by nothing. Symptoms alleviated by nothing. Pt reports dizziness, nausea, loss of appetite, weight loss, not feeling well, diaphoresis and chills during the night. Pt denies any fever, erythema of eyes, sore throat, CP, SOB, cough, abdominal pain, vomiting, dysuria, hematuria, myalgia, edema, rash. PMHx of HTN and high cholesterol. Physical exam shows pt is mildly confused, has left lower back pain, left CVA tenderness, and general ABD pain to palpation with more pain at RLQ and LLQ. Lab results show RBC 3.85, Hgb 11.5, Hct 33, Plt Count 502, MPV 6.6, absolute monos 0.9, chloride 100, BUN 60, creatinine 2.22, BUN/creatinine ratio 27.0, glucose 104, calcium 11.0, AST 11. EKG at 1115 shows 69 BPM, sinus rhythm, no STEMI. Abd/Pel CT IMPRESSION: 1. Negative for urolithiasis or hydronephrosis. 2. Follow-up LEFT renal ultrasound suggested to differentiate between a 1.8 cm hyperdense cyst and a solid lesion at the upper pole of the LEFT kidney. 3. Normal appendix documented. Mild colonic diverticulosis. No acute pathologic process of the alimentary tract evident. Renal US IMPRESSION: 1. Stigmata of medical renal disease. 2. Minimally complex Bosniak II cyst versus immediately adjacent simple cysts superior pole LEFT kidney corresponding with the hypodense lesion on CT without concern. During ED course pt was given fluids, Zofran INJ, Roxycodone TAB. There is no hyperkalemia, no indication for dialysis, and no required workup for renal failure. At 1318, Dr. Rod accepts pt for admission. Dx are left renal cyst and acute renal failure. - Diagnoses Provider Diagnoses: Renal cyst, left, Acute renal failure - Physician Notifications Discussed Care Of Patient With: Keyla Rod Time Discussed With Above Provider: 13:18 Instructed by Provider To: Other - Dr. Rod accepts pt for admission. Discharge ED - Sign-Out/Discharge Documenting (check all that apply): Patient Departure - admit Patient Received Moderate/Deep Sedation with Procedure: No - Discharge Plan Condition: Stable Disposition: ADMITTED TO [facility] Referrals: John Castillo MD [Primary Care Provider] - - Attestation Statements Document Initiated by Scribe: Yes Documenting Scribe: Pro Perry Provider For Whom Scribe is Documenting (Include Credential): Dr. Win Sanchez MD Scribe Attestation: I, Pro Perry, scribed for Dr. Win Sanchez MD on 04/10/19 at 1340. Status of Scribe Document: Ready
[2019-04-10 11:38] LABS: ABS Basophils 0.1 10^3/ul (0-0.2); ABS Eosinophils 0.2 10^3/ul (0-0.6); ABS Lymphocytes 1.7 10^3/ul (1.0-4.8); ABS Monocytes 0.9 10^3/ul (0-0.8); ABS Neutrophils 6.7 10^3/ul (1.5-7.7); Eosinophil % 1.7 %; Hematocrit 33 % (42-52); Hemoglobin 11.5 g/dL (14.0-18.0); Lymphocyte % 17.5 %; Mean Corpuscular HGB Conc 36 g/dL (31-36); Mean Corpuscular Hemoglobin 30 pg (27-31); Mean Corpuscular Volume 85 fL (80-94); Mean Platelet Volume 6.6 fL (7.4-10.4); Platelet Count 502 10^3/uL (150-450); Red Blood Count 3.85 10^6 /uL (4.18-5.48); Red Cell Distribution Width 14 % (10-15); White Blood Count 9.5 10^3/uL (3.5-10.8)
[2019-04-10 12:00] LABS: Albumin 4.3 g/dL (3.2-5.2); Albumin/Globulin Ratio 1.3 (1-3); EGFR African American 36.7 (>60); EGFR Non-African American 30.4 (>60); Globulin 3.2 g/dL (2-4); Magnesium 2.2 mg/dL (1.9-2.7); Potassium 4.5 mmol/L (3.5-5.0); Total Bilirubin 0.9 mg/dL (0.2-1.0); Total Protein 7.5 g/dL (6.4-8.9)
[2019-04-10] MEDS: NS 0.9% 1000 ML** 2,000 ML IV ONE (12:08)
[2019-04-10 12:38] LABS: TSH (Thyroid Stimulating Horm) 1.85 mcIU/mL (0.34-5.60)
[2019-04-10] MEDS ORDERED: oxyCODONE TAB* 5 MG TAB PO ONE (12:47)
[2019-04-10] MEDS ORDERED: Ondansetron INJ* 2 MG/ML VIAL IV ONE (13:15)
[2019-04-10] MEDS ORDERED: hydrALAZINE IV* 20 MG/ML VIAL IV SLOW PU PRN (14:32)
[2019-04-10 15:03] LABS: Urine Appearance Clear; Urine Bacteria Absent (Absent); Urine Bilirubin Negative (Negative); Urine Blood 1+ (Negative); Urine Color Yellow; Urine Glucose Negative (Negative); Urine Ketones Negative (Negative); Urine Nitrite Negative (Negative); Urine Protein Negative (Negative); Urine Red Blood Cell Trace(0-2/hpf) (Absent); Urine Specific Gravity 1.014 (1.010-1.030); Urine Urobilinogen Negative (Negative); Urine White Blood Cell Trace(0-5/hpf) (Absent)
[2019-04-10 15:11] LABS: C Reactive Protein 30.98 mg/L (<8.01)
[2019-04-10 16:10] LABS: Influenza A Molecular NEGATIVE (Negative); Influenza B Molecular NEGATIVE (Negative)
[2019-04-10] MEDS: NS 0.9% 1000 ML** 1,000 ML IV SCH (16:17)
[2019-04-10 16:46] LABS: Urine Creatinine Concentration 111.84 mg/dL
[2019-04-10 17:15] LABS: Erythrocyte Sed Rate 63 mm/Hr (0-19)
--- NOTE | 2019-04-10 19:09 | HP ---
CC: Dr. John Castillo * HISTORY AND PHYSICAL: DATE OF ADMISSION: 04/10/19 PRIMARY CARE PROVIDER: Dr. John Castillo. ATTENDING PHYSICIAN: Dr. Frost * (dictated by PAMELLA Pablo). CHIEF COMPLAINT: General malaise, cold sweats, abdominal pain, nausea. HISTORY OF PRESENT ILLNESS: Mr. Tracey is a 58-year-old male with a past medical history of hypertension, hyperlipidemia, BPH, possible CKD, who presented to the ER today with vague complaints of feeling "sick." He had a left total knee arthroplasty on 03/27/19. He was discharged feeling well. He notes that since then he has felt sick. He describes episodes of cold sweats, abdominal pain without changes in back pain or associated flank pain. He describes myalgias everywhere and generalized malaise. He notes that he has had a 20-pound weight loss since surgery which is attributed to his very poor oral intake which includes decreased intake of fluids. He denies cough, fever, headache, itching/rash, exposure to recent illness. He denies vomiting or diarrhea, although he does have nausea at times which has deterred him from eating. He denies hematuria, although he does have a history of hematuria, for which he had a scope years ago in [place], [place] with "inconclusive results." He states that he typically uses the bathroom every 2 hours, but has had a decreased urine output in the last 3 days, although he is unable to further specify. He denies recent use of NSAIDs or any imaging that involves contrast. He has not had antibiotics since his surgery. It was suggested that he see his primary care provider by Dr. Clark after multiple reports of hypotension and general malaise at physical therapy. He did see his primary care provider yesterday and he was noted to be hypotensive with a creatinine of 2.9. He was advised to discontinue all of his antihypertensives including 2 diuretics and NIKKI inhibitor, which he has not had in the last 2 days. The patient complains of dizziness, lightheadedness, nausea, left knee pain with intact range of motion and no discharge. He complains of generalized abdominal pain that he describes as hunger pain but he continues to refuse to eat due to nausea. He denies vomiting, denies diarrhea. In the ER, the patient received a full workup which included blood work revealing a normocytic anemia, a mildly elevated platelet count, creatinine of 2.22, calcium of 11.0. TSH was within normal limits. CT of the abdomen and pelvis was negative for urolithiasis or hydronephrosis. There was a 1.8 cm hyperdense cyst versus solid lesion on the left kidney. This was followed up with ultrasound which revealed medical renal disease and minimally complex cyst versus simple cyst. The patient was given 2 L IV fluids bolus, Zofran, and Roxicodone 10. Hospitalist team was asked to evaluate the patient for admission. PAST MEDICAL HISTORY: 1. Hypertension. 2. Hyperlipidemia. 3. Possible CKD with GFR of 60.6 during last admission. No other laboratory data available. 4. BPH. 5. Chronic low back pain. PAST SURGICAL HISTORY: 1. Bilateral knee arthroscopy. 2. Bilateral total knee replacement. 3. Tonsillectomy. 4. Bilateral cataracts. HOME MEDICATIONS: 1. Alfuzosin 10 mg p.o. daily. 2. Apixaban 2.5 mg p.o. b.i.d. 3. Fenofibrate 48 mg p.o. daily. 4. Hydrochlorothiazide 25 mg p.o. daily. 5. Lisinopril 40 mg p.o. daily. 6. Oxycodone SR 30 mg p.o. q.12 hours p.r.n. 7. Oxycodone 10 mg p.o. q.4 hours p.r.n. 8. Simvastatin 20 mg p.o. daily. 9. Spironolactone 12.5 mg p.o. daily. DRUG ALLERGIES: No known drug allergies. FAMILY HISTORY: Mother and father both had liver cancer. The patient had 1 child that from hypertrophic cardiomyopathy. No family history of kidney disease. No family history of CVA. SOCIAL HISTORY: The patient denies current use of tobacco. He quit approximately 2 years ago. Prior to that he smoked for 35 years, 1 pack per day. He does note that he occasionally will smoke a cigarette but uses them less than weekly. He drinks less than weekly. He is retired from [employer]. He is and lives with his . He has 2 healthy children. One child . In the event that he is unable to make his own medical decisions, he has appointed his Jaleesa Tracey to be his surrogate decision maker. REVIEW OF SYSTEMS: A 10-point review of systems has been performed and all the pertinent positives and negatives are in the HPI. All other systems are negative. PHYSICAL EXAMINATION GENERAL: Mr. Tracey is a well-developed, well-nourished, obese, middle aged white man who is sitting up in bed. He appears fatigued and ill. He is cooperative and appropriate, although vague about his symptoms. HEENT: Visual ramos are grossly intact. PERRL. EOMI. Nonicteric sclerae. Hearing is grossly intact. Oral mucous membranes are moist. There are no lesions. The tongue is at midline. The posterior oropharynx is clear. Soft palate elevates symmetrically. RESPIRATORY: Symmetrical chest expansion without use of accessory muscles. Lungs are clear to auscultation bilaterally without rhonchi, wheezes, or rales. There is no digital clubbing or cyanosis. CARDIOVASCULAR: Regular rate and rhythm with S1, S2 present without murmurs, rubs, clicks, or gallops. There is no JVD. There is no pedal edema. Radial and pedal pulses are palpable. ABDOMEN: Obese. Bowel sounds noted in all quadrants. There is no tenderness to palpation throughout. There is no hepatosplenomegaly. There is very mild left CVA tenderness. MUSCULOSKELETAL: Full range of motion in bilateral upper extremities and right lower extremity. The left knee has a full but slow range of motion. There are sutures in place. There is no erythema or discharge from the surgical incision site. The area is slightly warmer when compared to the right knee and there is mild edema. There is no tenderness to palpation. The patient is able to flex and extend the knee. NEUROLOGIC: The patient is awake. He is alert and oriented x3 with cranial nerves grossly intact. He is able to move all of his extremities. He has a motor strength of 5/5 in bilateral upper extremities and right lower extremity. The left lower extremity is somewhat weaker than the right lower extremity. DIAGNOSTIC STUDIES AND LABORATORY DATA: HGB 11.5, HCG 33, platelet 502. BUN 60, creatinine 2.22. Calcium 11.0, TSH 1.85. CT abdomen and pelvis, impression: Negative for urolithiasis or hydronephrosis. Followup left renal ultrasound suggested to differentiate between a 1.8 cm hyperdense cyst and a solid lesion at the upper pole of the left kidney. Normal appendix documented. Mild colonic diverticulosis. No acute pathologic process of the alimentary tract evident. Ultrasound renal complete, impression: Stigmata of medical renal disease. Minimal complex Bosniak 2 cysts versus immediately adjacent simple cyst superior pole left kidney corresponding with the hypodense lesion on CT without concern. ASSESSMENT AND PLAN: Mr. Tracey is a 58-year-old male with a past medical history of hypertension, hyperlipidemia, benign prostatic hypertrophy, possible chronic kidney disease, who presented to the ER today with generalized complaints of malaise, myalgias, abdominal pain, nausea, decreased oral intake and was found to have an acute kidney injury. He will be admitted inpatient for : 1. Malaise. The patient presents with malaise, myalgias, abdominal pain, decreased oral intake and feeling generally unwell. He does not have any leukocytosis just mildly elevated platelet count which could be reactive. There is concern for an infectious process, although the patient denies cough or diarrhea. He has decreased urine output which could be result of his decreased intake of fluids. UA is pending. ESR, CRP, and influenza testing has been ordered. The patient also has a reported 20-pound weight loss. This is reflected in his weigh on 03/27/19 of 276, current weight of 255. This could be a result of again decreased intake, although there is concern for a more threatening process. The patient does have a history of hematuria. We are awaiting urinalysis for more information. The patient's will bring in records from his scope from [place], [place]. Ultrasound does show a minimally complex versus a simple cyst of the left kidney but the patient would likely benefit from a bladder ultrasound. This will be ordered. 2. Acute kidney injury, on chronic Kidney disease. The patient has creatinine of 2.22. Two weeks ago it was 1.22. It is reported that his creatinine yesterday was 2.9. He had been instructed to stop lisinopril, hydrochlorothiazide, and spironolactone which he has not taken in the last 2 days. His creatinine has improved since discontinuation of this medication. I suspect that his acute kidney injury is likely due to hypoperfusion of the kidneys due to hypovolemia from decreased p.o. intake. I also suspect that these medications have contributed to his acute kidney injury which is suggested by improvement of creatine in the last 24 hours. A urine FENa has been ordered. Urinalysis is also ordered and pending. 3. Left total knee arthroplasty. The patient was supposed to have suture removal yesterday, but he was unable to follow up with Dr. Clark. We will consult Ortho to assess need for suture removal. I think it will also help to have them look at the knee, although it does not appear affected at this stage. There is mild edema without erythema or discharge. Range of motion is intact. I do not suspect that there is infection in this area. 4. Hypertension. The patient has held his home medications. We will continue to hold them. He is normotensive at this point. I have ordered hydralazine p.r.n. SBP greater than 160. He may need further oral agents later, but at this point I will hold off in light of hypotension previously described and the fact that he is normotensive currently. 5. Hyperlipidemia. Continue home statin medication. 6. Benign prostatic hypertrophy. Continue alfuzosin. 7. Chronic low back pain. Continue home medications Roxicodone, OxyContin. 8. DVT prophylaxis: According to DVT Risk Assessment, the patient scores 2 placing him at moderate risk. He will be started on heparin. 9. Code status: Full code. TIME SPENT: Approximately 60 minutes was spent on this admission, greater than half that time was spent face to face with the patient and his , obtaining history, performing physical, and reviewing the plan of care. The case has been reviewed with my attending Dr. Frost who is in agreement with the plan of care. PAMELLA PHAM [id number]/[facility] #: [id number] DINO
[2019-04-10] MEDS ORDERED: Dextran 70/Hypromellose Tears Eye Drops 15 ml BTL (for Artificials Tears) BOTH EYES PRN (19:36)
[2019-04-10] MEDS: Apixaban* 2.5 MG TAB PO SCH (20:00)
[2019-04-10] MEDS: oxyCODONE TAB* 5 MG TAB PO PRN ×2 (20:00→23:59)
[2019-04-10] MEDS: oxyCODONE SR TAB(*) 15 MG TAB.SR PO PRN (20:01)
[2019-04-10] MEDS: Ondansetron INJ* 2 MG/ML VIAL IV PRN (20:30)
--- NOTE | 2019-04-11 00:22 | CONS ---
CONSULTATION REPORT: DATE OF CONSULT: 04/10/19 REASON FOR CONSULTATION: Left knee pain, recent surgery, concern regarding infection. HISTORY OF PRESENT ILLNESS: The patient is a 58-year-old man, 14 days status post 03/27/19 left total knee arthroplasty, performed by my partner, Dr. Clark. The patient was discharged home several days postoperatively without incident. The patient went to outpatient physical therapy once. While home, the patient started feeling very unwell. He felt lethargic, low energy, as if he had the flu, in his words. This low energy/fatigue prevented him from doing any additional outpatient physical therapy sessions. Yesterday, the patient called our office with some concerns regarding his overall energy level and feeling ill. The patient was referred to his primary care physician, who saw him yesterday and the patient presented today through the emergency department. The patient had told the emergency room staff that he had been weak and fatigued for 10 days now. The patient's primary care doctor took the patient off his lisinopril and hydrochlorothiazide yesterday as the patient had a relatively low blood pressure in the office. The patient's also stated that the patient had had dark tea-colored urine over the last several days. The patient describes some cold sweats to the hospitalist service , although he denied fevers, sweats, or chills when speaking with me. He also described to the hospitalist service some abdominal pain. He described myalgias throughout his body and a general malaise as well as a 20-pound weight loss. He felt that he had not been eating much. He has had decreased urine output for the last 3 days and denied hematuria, but he described a distant past cystoscope or urology procedure in [place]. The patient was noted by primary care doctor yesterday to have a creatinine of 2.9. The patient was admitted by the hospitalist service today with diagnoses of malaise, [id number] kidney disease, hypertension, hyperlipidemia, and benign prostatic hypertrophy along with chronic lower back pain. The patient had initially been scheduled to see Dr. Clark in the clinic yesterday for removal of stitches. He missed that appointment because of these recent symptoms. The hospitalist staff was concerned about him not missing his sutures being removed. They were also concerned about the left knee as being a possible source of infection that could be causing some of the patient's systemic symptoms, malaise, low energy. I was happy to see the patient. The patient describes decreasing pain over time since the surgery. He feels he is recovering better with regards to left knee pain that he did after he recovered from a contralateral right total knee arthroplasty done in the distant past in an outside hospital approximately 8 years ago. The patient feels that the knee pain has continued to decrease postoperatively, as has his intake of oral pain medications. The patient states that he is taking OxyContin twice daily and oxycodone for breakthrough pain. Swelling has gone down about the left knee. He has had no drainage from the left knee incision in the recent past. The patient is aware that he needs to be working on range of motion and certainly aware that he is not supposed to have a pillow under his knee while reclining in bed and the patient acknowledges that his is constantly reminding him to work on range of motion of the left knee. PAST MEDICAL HISTORY: 1. Hypertension. 2. Hyperlipidemia. 3. Possible chronic kidney disease. 4. Benign prostatic hypertrophy. 5. Chronic lower back pain. PAST SURGICAL HISTORY: 1. Bilateral knee arthroscopy. 2. Bilateral total knee arthroplasty. 3. Tonsillectomy. 4. Bilateral cataract excision. MEDICATIONS: 1. Alfuzosin. 2. Eliquis. 3. Fenofibrate. 4. Hydrochlorothiazide. 5. Lisinopril. 6. OxyContin p.r.n. 7. Oxycodone p.r.n. 8. Simvastatin. 9. Spironolactone. ALLERGIES: No known drug allergies. FAMILY HISTORY: Significant for liver cancer in both the patient's mother and father. The patient had 1 child who with hypertrophic cardiomyopathy. SOCIAL HISTORY: The patient quit tobacco 2 years ago, but prior to that smoked cigarettes for 35 years, 1 pack per day. The patient is retired from [employer]. and lives with his . The patient told me that he did not take pain medication preoperatively, but this is slightly surprising given the very high doses of narcotic pain medication he is requiring postoperatively. REVIEW OF SYSTEMS: A full 14-point review of systems was performed. Pertinent positives were mentioned in my history of present illness section of this note. PHYSICAL EXAM: No acute distress. Nontoxic appearing. Alert and oriented, appropriate mood and affect. Appropriate dress and hygiene for a hospitalized patient. Lying supine in his hospital bed. Well-coordinated bilateral upper and lower extremities. Temperature max since admission of 98.0 degrees Fahrenheit. Temperature current was 97.6 degrees Fahrenheit, heart rate 71, blood pressure 114/69, respiratory rate 18, and oxygen saturation 98% on room air. Left knee exam shows incision clean, dry, and intact. Stitches in place. There is just the tiniest rim of erythema where the suture is going through the skin, consistent with a tissue reaction to foreign body; suture material. There is no tenderness to palpation along the skin incision. No active drainage of skin incision. Mild soft tissue swelling about the anterior aspect of the knee. Mild knee joint effusion. Passive range of motion approximately 15 to 95 degrees of flexion. Within that range of motion even with rapid passive range of motion, the patient had no significant discomfort. Neurovascularly intact distally. DIAGNOSTIC STUDIES/LAB DATA: Labs: White blood cell count from today was 9.5 with a neutrophil percentage of 17.8%. Creatinine of 2.22, CRP of 30.98. Urinalysis negative for infection, but 1+ blood. Influenza A and B negative. ASSESSMENT: 1. Left knee pain. 2. Status post left total knee arthroplasty, 03/27/19, by a colleague of [facility]. 3. Acute kidney injury superimposed on likely chronic kidney disease. PLAN: 1. I see no sign of infection about the left knee. This is based on history, exam, and labs as well as vitals. 2. The patient's sutures can be removed at this time. I will ask the orthopedic surgery PA or nursing to remove stitches and place Steri-Strips tomorrow, 04/11/19, although there is certainly no urgency to this. 3. The patient has been neglected in terms of working with physical therapy because of his overall lethargy and malaise. For that reason, he has only been to physical therapy once since his discharge from the hospital. Encouraged the patient to do [id number] exercises. Perhaps, we can get a physical therapy consult for him during this admission and that he can work on range of motion and strengthening as he recovers from his medical illness. 4. The patient is aware that he should not be resting with a pillow under his knee and he promises to wean off of this as he starts feeling better systemically. 5. I defer to the hospitalist service medical management of the kidney disease or any other systemic problems. 6. The patient can follow up with Dr. Clark in clinic after discharge from the hospital. [id number]/[facility] #: [id number] DINO
[2019-04-11] MEDS: NS 0.9% 1000 ML** 1,000 ML IV SCH (00:40)
[2019-04-11 06:56] LABS: BUN/Creatinine Ratio 24.9 (8-20); Calcium 9.5 mg/dL (8.6-10.3); EGFR African American 41.2 (>60); EGFR Non-African American 34.1 (>60); Potassium 4.7 mmol/L (3.5-5.0)
[2019-04-11] MEDS: Apixaban* 2.5 MG TAB PO SCH ×2 (08:26→21:56)
[2019-04-11] MEDS: Atorvastatin* 10 MG TAB PO SCH (08:26)
[2019-04-11] MEDS: oxyCODONE TAB* 5 MG TAB PO PRN ×2 (08:27→13:40)
[2019-04-11] MEDS: PTO:Alfuzosin ER (NF) 10 MG TAB.ER PO SCH (09:18)
[2019-04-11] MEDS: FENOFIBRATE 48 MG PO SCH (09:18)
[2019-04-11 10:30] LABS: Hematocrit 29 % (42-52); Hemoglobin 10.2 g/dL (14.0-18.0); Mean Corpuscular HGB Conc 35 g/dL (31-36); Mean Corpuscular Hemoglobin 30 pg (27-31); Mean Corpuscular Volume 86 fL (80-94); Platelet Count 419 10^3/uL (150-450); Red Blood Count 3.38 10^6 /uL (4.18-5.48); Red Cell Distribution Width 14 % (10-15); White Blood Count 7.7 10^3/uL (3.5-10.8)
[2019-04-11 11:48] LABS: ABS Basophils 0.1 10^3/ul (0-0.2); ABS Eosinophils 0.2 10^3/ul (0-0.6); ABS Lymphocytes 1.8 10^3/ul (1.0-4.8); ABS Monocytes 0.8 10^3/ul (0-0.8); ABS Neutrophils 4.8 10^3/ul (1.5-7.7); Lymphocyte % 23.1 %
[2019-04-11 11:50] LABS: Tear Drop Cells 1+
--- NOTE | 2019-04-11 12:39 | PN ---
Progress Note - Progress Note Date of Service: 04/11/19 SOAP: Subjective: [Pt was seen lying in bed today. Orthopedics called to remove sutures from knee. The pt states that the knee is not painful at this point. States that it continues to improve. ] Objective: [General: Alert and oriented x 3. NAD. Appropriate mood, affect, dress and hygiene. MSK, LLE: Inspection of the left knee reveals no erythema or ecchymosis. Skin is warm dry and intact with sutures in place over the scar. The pt is able to flex to 100 and extend to 5 degrees shy of full extension. Calf is soft and non tender. NVI distally with a 2+ DP pulse. ] Vital Signs Temp 97.4 F 04/11/19 11:04 Pulse 65 04/11/19 12:04 Resp 16 04/11/19 11:04 BP 141/82 04/11/19 12:04 Pulse Ox 100 04/11/19 11:04 Intake & Output 04/10/19 04/11/19 04/11/19 18:59 06:59 18:59 Intake Total 2470 1716 240 Balance 2470 1716 240 Weight 264 lb Intake: IV Fluids 1999 1716 NS (0.9%) 1716 Oral 470 0 240 Other: Estimated Void Medium # Bowel Movements 1 # Voids 4 Assessment: [S/P LTKA ] Plan: [1. Sutures removed today 2. Continue with PT 3. Follow up with Dr. Clark in 2 weeks in the clinic. ]
[2019-04-11] MEDS: Ondansetron INJ* 2 MG/ML VIAL IV PRN ×2 (13:02→17:53)
[2019-04-11] MEDS: oxyCODONE SR TAB(*) 15 MG TAB.SR PO PRN (13:42)
[2019-04-11] MEDS: oxyCODONE TAB* 5 MG TAB PO SCH ×2 (17:53→21:57)
--- NOTE | 2019-04-11 18:27 | PN ---
Subjective Date of Service: 04/11/19 Interval History: Patient continues to have vague complaints of feeling unwell. States he occasionally feels dizzy, LH, weak, chills/sweats, lethargy, malaise, roller coast of feeling OK and then unwell. He denies specific complaints, denies CP, cough, SOB, abd pain, n/v/d. He has been taking opiate regimen as prescribed since surgery. No other new medications. Objective Active Medications: Alfuzosin HCl (Uroxatral (Nf)) 10 mg PO QAM AVTAR Apixaban (Eliquis*) 2.5 mg PO BID AVTAR Artificial Tears (Natural Balance Tears Eye Drop) 2 drop BOTH EYES Q2H PRN Atorvastatin Calcium (Lipitor*) 10 mg PO QAM AVTAR Fenofibrate (Tricor(Nf)) 48 mg PO QAM AVTAR Hydralazine HCl (Apresoline Iv*) 5 mg IV SLOW PU Q6H PRN Sodium Chloride (Ns 0.9% 1000 Ml) 1,000 mls @ 125 mls/hr IV PER RATE AVTAR Ondansetron HCl (Zofran Inj*) 4 mg IV Q4H PRN Oxycodone HCl (Roxycodone Tab*) 10 mg PO Q4H AVTAR Vital Signs: Temp Pulse Resp BP Pulse Ox 97.4 F 65 18 141/82 100 04/11/19 11:04 04/11/19 12:04 04/11/19 13:42 04/11/19 12:04 04/11/19 11:04 Oxygen Devices in Use Now: None Appearance: Pt is laying in bed. NAD. Appears fatigued, but well. Eyes: No Scleral Icterus, PERRLA Ears/Nose/Mouth/Throat: NL Teeth, Lips, Gums, Clear Oropharnyx, Mucous Membranes Moist Neck: NL Appearance and Movements; NL JVP, Trachea Midline Respiratory: Symmetrical Chest Expansion and Respiratory Effort, Clear to Auscultation Cardiovascular: NL Sounds; No Murmurs; No JVD, RRR, No Edema Extremities: No Edema, No Clubbing, Cyanosis, - - L knee with bettina removed; no signs of dehiscence, without erythema, discharge. Slight edema, warmth. ROM intact. Neurological: Alert and Oriented x 3, NL Sensation, NL Muscle Strength and Tone , - - Using walker, d/t knee pain, and feeling unsteady - Nutrition: Malnutrition Diagnosis/Plan Malnutrition Assessment by Registered Dietitian: Malnutrition Assessment Clinical Characteristics Acute,Moderate Malnutrition Assessment: - wt loss at least 12# (4.3%) in past two weeks Criteria - po intake <75% EEE for > 7 days Malnutrition Assessment: - heart healthy diet, so restricted, but pt Interventions amenable to this - strawberry Ensure Enlive daily at 3pm (350 kcals, 20 g prot) Malnutrition Assessment: Goals 1. pt will tolerate po diet without exacerbated nausea, abd pain 2. adequate po intake to maintain stable wt, hydration, and lean body mass 3. maintain serum electrolytes levels WNL 4. renal labs will show improvement toward baseline w/adequate po intake, adequate fluids 5. maintain regulated bowel pattern without c/ o constipation (or diarrhea) Result Diagrams: 04/11/19 05:46 04/11/19 05:46 Microbiology and Other Data: Microbiology 04/10/19 14:36 Urine Culture - Final Urine No Growth (<1,000 CFU/mL) Assess/Plan/Problems-Billing Assessment: 58 yom PMHx HTN, HLD, ? CKD, BPH, s/p LTKA 03/27 presents with generalized fatigue/malaise since surgery. - Patient Problems (1) Malaise and fatigue Comment: -Pt reports feeling generally unwell, with vague symptoms starting post- oepratively -Operative L knee WNL without s/s infection; ortho following, thank you for recommendations -No other s/s infection -CT head WNL -Orthostatics WNL -Telemetry -Home opiates are new- pt taking oxycontin 30 BID prn, roxycodone 10 q4prn; suspect that this may at least be contributing -D/c oxycontin and start roxycodone on q4h scheduled -Plan to wean off and offer tylenol prn -PT/OT ordered (2) Status post total left knee replacement Comment: -LTKA 03/27 -Sutures removed today; knee w/o s/s infection -Ortho consulting (3) Hypertension Comment: -WNL; without orthostasis -Holding home diuretics, NIKKI in light of TANIA and hypotension prior to admission -Monitor for need for readdition on antihypertensives (4) Acute kidney injury superimposed on CKD Comment: -Bladder US WNL; Renal US shows L cyst -Prerenal -Improving with IVF -Add 1L NS overnight -Recheck in a.m. (5) HLD (hyperlipidemia) Comment: -Continue statin, fenofibrate (6) BPH (benign prostatic hyperplasia) Comment: -Continue alfuzosin (7) DVT prophylaxis Comment: -Post-op eliquis (8) Full code status
[2019-04-11] MEDS ORDERED: NS 0.9% 1000 ML** 1,000 ML IV SCH (18:30)
[2019-04-11] MEDS ORDERED: traZODone TAB* 50 MG TAB PO ONE (22:27)
[2019-04-12] MEDS: oxyCODONE TAB* 5 MG TAB PO SCH ×4 (01:01→14:37)
[2019-04-12] MEDS: Ondansetron INJ* 2 MG/ML VIAL IV PRN ×3 (02:19→23:23)
[2019-04-12 05:12] LABS: Hematocrit 32 % (42-52); Hemoglobin 10.3 g/dL (14.0-18.0); Mean Corpuscular HGB Conc 33 g/dL (31-36); Mean Corpuscular Hemoglobin 30 pg (27-31); Mean Corpuscular Volume 91 fL (80-94); Mean Platelet Volume 6.9 fL (7.4-10.4); Platelet Count 386 10^3/uL (150-450); Red Blood Count 3.49 10^6 /uL (4.18-5.48); Red Cell Distribution Width 14 % (10-15); White Blood Count 7.9 10^3/uL (3.5-10.8)
[2019-04-12 05:19] LABS: Anion Gap 6 mmol/L (2-11); BUN/Creatinine Ratio 21.3 (8-20); Blood Urea Nitrogen 36 mg/dL (6-24); CO2 Carbon Dioxide 24 mmol/L (22-32); Calcium 9.2 mg/dL (8.6-10.3); Chloride 105 mmol/L (101-111); EGFR African American 50.3 (>60); EGFR Non-African American 41.6 (>60); Glucose 110 mg/dL (70-100); Potassium 4.2 mmol/L (3.5-5.0); Sodium 135 mmol/L (135-145)
[2019-04-12] MEDS: Apixaban* 2.5 MG TAB PO SCH ×3 (09:12→20:04)
[2019-04-12] MEDS: Atorvastatin* 10 MG TAB PO SCH (09:12)
[2019-04-12] MEDS: FENOFIBRATE 48 MG PO SCH (10:34)
[2019-04-12] MEDS: PTO:Alfuzosin ER (NF) 10 MG TAB.ER PO SCH (10:34)
[2019-04-12 14:12] LABS: Ferritin 300.7 ng/mL (24-336)
[2019-04-12 15:01] LABS: % Iron Saturation 20 % (15-55); Iron 55 ug/dL (50-212); Total Iron Binding Capacity 276 mcg/dL (250-450); Transferrin 197 mg/dL (203-362)
[2019-04-12] MEDS: Sucralfate TAB* 1 GM PO SCH ×2 (17:09→20:04)
[2019-04-12] MEDS: Al Hydrox/Mg Hydrox/Simet LIQ* 30 ML UDC PO PRN ×2 (17:10→23:20)
--- NOTE | 2019-04-12 17:37 | PN ---
Subjective Date of Service: 04/12/19 Interval History: Patient resting in bed on assessment. When discussing events leading up to admission he reports he presented to ED on the instruction of his PCP given "kidney issues". When discussing complaints of malasie, cold sweats, nausea, and abd pain, he reports this have been present for several weeks and he attributes it to pain medication. He reports the pain in his left upper thigh has been not tolerable therefore he has been taking pain medications frequently. He endorses generalized abd pain and nausea today intermittently. He also reports occasional cold sweats. He denies diarrhea stating is has been 2 to 3 days since his last BM which is normal for him. Denies cp, palpitations, sob, neurological symptoms, fever. Objective Active Medications: Al Hydrox/Mg Hydrox/Simethicone (Maalox Plus*) 30 ml PO Q6H PRN PRN Reason: INDIGESTION Last Admin: 04/12/19 17:10 Dose: 30 ml Alfuzosin HCl (Uroxatral (Nf)) 10 mg PO [facility] Last Admin: 04/12/19 10:34 Dose: 10 mg Apixaban (Eliquis*) 2.5 mg PO BID [facility] Last Admin: 04/12/19 17:08 Dose: 2.5 mg Artificial Tears (Natural Balance Tears Eye Drop) 2 drop BOTH EYES Q2H PRN PRN Reason: DRY EYE Last Admin: 04/10/19 20:18 Dose: 2 drp Atorvastatin Calcium (Lipitor*) 10 mg PO [facility] Last Admin: 04/12/19 09:12 Dose: 10 mg Fenofibrate (Tricor(Nf)) 48 mg PO [facility] Last Admin: 04/12/19 10:34 Dose: 48 mg Hydralazine HCl (Apresoline Iv*) 5 mg IV SLOW PU Q6H PRN PRN Reason: SBP > 160 Ondansetron HCl (Zofran Inj*) 4 mg IV Q4H PRN PRN Reason: NAUSEA/VOMITING Last Admin: 04/12/19 11:29 Dose: 4 mg Oxycodone HCl (Roxycodone Tab*) 10 mg PO Q4H PRN PRN Reason: PAIN - MODERATE Sucralfate (Carafate*) 1 gm PO 0630,1100,1600,2100 [facility] Last Admin: 04/12/19 17:09 Dose: 1 gm Vital Signs - 8 hr 04/12/19 11:22 Temperature 98.1 F Pulse Rate 76 Respiratory 18 Rate Blood Pressure 122/69 (mmHg) O2 Sat by Pulse 100 Oximetry Oxygen Devices in Use Now: None Appearance: Comfortable, NAD Eyes: No Scleral Icterus Ears/Nose/Mouth/Throat: Clear Oropharnyx, Mucous Membranes Moist Neck: NL Appearance and Movements; NL JVP Respiratory: Symmetrical Chest Expansion and Respiratory Effort, Clear to Auscultation Cardiovascular: NL Sounds; No Murmurs; No JVD, RRR, No Edema Abdominal: - - Abd soft. BS+. No rebound tenderness. Reports diffuse tenderness with palpation with increase tenderness in epigastric region Lymphatic: No Cervical Adenopathy Extremities: No Clubbing, Cyanosis Skin: No Rash or Ulcers Neurological: Alert and Oriented x 3, NL Muscle Strength and Tone Nutrition: Taking PO's - Nutrition: Malnutrition Diagnosis/Plan Malnutrition Assessment by Registered Dietitian: Malnutrition Assessment Clinical Characteristics Acute,Moderate Malnutrition Assessment: - wt loss at least 12# (4.3%) in past two weeks Criteria - po intake <75% EEE for > 7 days Malnutrition Assessment: - heart healthy diet, so restricted, but pt Interventions amenable to this - strawberry Ensure Enlive daily at 3pm (350 kcals, 20 g prot) Malnutrition Assessment: Goals 1. pt will tolerate po diet without exacerbated nausea, abd pain 2. adequate po intake to maintain stable wt, hydration, and lean body mass 3. maintain serum electrolytes levels WNL 4. renal labs will show improvement toward baseline w/adequate po intake, adequate fluids 5. maintain regulated bowel pattern without c/ o constipation (or diarrhea) Result Diagrams: 04/12/19 04:39 04/12/19 04:39 Additional Lab and Data: Laboratory Results - last 24 hr 04/12/19 04/12/19 04:39 04:39 WBC 7.9 RBC 3.49 L Hgb 10.3 L Hct 32 L MCV 91 MCH 30 MCHC 33 RDW 14 Plt Count 386 MPV 6.9 L Sodium 135 Potassium 4.2 Chloride 105 Carbon Dioxide 24 Anion Gap 6 BUN 36 H Creatinine 1.69 H Est GFR ( Amer) 50.3 Est GFR (Non-Af Amer) 41.6 BUN/Creatinine Ratio 21.3 H Glucose 110 H Calcium 9.2 Iron 55 TIBC 276 % Saturation 20 Unsat Iron Binding < 261 Transferrin 197 L Ferritin 300.7 Vitamin B12 1411 H Folate 11.50 Microbiology and Other Data: Microbiology 04/10/19 14:36 Urine Culture - Final Urine No Growth (<1,000 CFU/mL) Assess/Plan/Problems-Billing Assessment: 58 yom PMHx HTN, HLD, ? CKD, BPH, s/p LTKA 03/27 presents with generalized fatigue/malaise since surgery. - Patient Problems (1) Abdominal pain Comment: - Reports diffuse abd pain and nausea. Aggrivating symptoms include eating and alleviating include drinking milk - Admits to having blood in stool in February after "blacking out" after drinking. Has not drank ETOH since that time. - Reports hx of bleeding ulcer - Stool guaic ordered - Carafate and Maalox ordered - Due for colonoscopy and discussed outpatient follow up if H&H remains stable. - Repeat H&H tomorrow (2) Malaise and fatigue Comment: - Reports he continues to feel malaise, but also reports he is not sleeping well at night. Admits he has been taking the pain medications to help with sleep - Pt reports feeling generally unwell, with vague symptoms starting post- oepratively - Operative L knee WNL without s/s infection; ortho following, thank you for recommendations - No other s/s infection - CT head WNL - Orthostatics WNL - Telemetry - Home opiates are new- pt taking oxycontin 30 BID prn, roxycodone 10 q4prn; suspect that this may at least be contributing - D/c oxycontin and start roxycodone on q4h scheduled - Plan to wean off and offer tylenol prn - PT/OT ordered (3) Acute kidney injury superimposed on CKD Comment: - Creatinine improving as today it is 1.69 - Bladder US WNL; Renal US shows L cyst - Prerenal - Improving with IVF - Recheck in a.m. (4) BPH (benign prostatic hyperplasia) Comment: - Continue alfuzosin (5) HLD (hyperlipidemia) Comment: - Continue statin, fenofibrate (6) Hypertension Comment: - Normotensive - WNL; without orthostasis - Holding home diuretics, NIKKI in light of TANIA and hypotension prior to admission - Monitor for need for readdition on antihypertensives (7) Status post total left knee replacement Comment: - LTKA 03/27 - Sutures removed 04/11; knee w/o s/s infection - Will need follow up with Dr Clark in 2 weeks (8) DVT prophylaxis Comment: - Monica (9) Full code status
[2019-04-12] MEDS ORDERED: Melatonin 3 MG TAB PO PRN (18:02)
[2019-04-12] MEDS: oxyCODONE TAB* 5 MG TAB PO PRN (23:20)
[2019-04-13] MEDS: oxyCODONE TAB* 5 MG TAB PO PRN ×2 (03:30→11:04)
[2019-04-13 06:22] LABS: Hematocrit 28 % (42-52)
[2019-04-13 06:38] LABS: BUN/Creatinine Ratio 18.5 (8-20); Calcium 9.2 mg/dL (8.6-10.3); EGFR African American 57.3 (>60); EGFR Non-African American 47.4 (>60); Potassium 4.1 mmol/L (3.5-5.0)
[2019-04-13] MEDS: Sucralfate TAB* 1 GM PO SCH ×2 (07:00→11:04)
[2019-04-13] MEDS: PTO:Alfuzosin ER (NF) 10 MG TAB.ER PO SCH (07:13)
[2019-04-13] MEDS: Al Hydrox/Mg Hydrox/Simet LIQ* 30 ML UDC PO PRN (07:13)
[2019-04-13] MEDS: Atorvastatin* 10 MG TAB PO SCH (07:14)
[2019-04-13] MEDS: FENOFIBRATE 48 MG PO SCH (07:14)
[2019-04-13] MEDS: Apixaban* 2.5 MG TAB PO SCH (07:14)
[2019-04-13 11:57] VITALS: BP 118/67
--- NOTE | 2019-04-13 19:59 | DS ---
CC: Dr. Castillo* DISCHARGE SUMMARY: DATE OF ADMISSION: 04/10/19 DATE OF DISCHARGE: 04/13/19 PRIMARY CARE PROVIDER: Dr. Castillo. ATTENDING PHYSICIAN: Dr. Johnson* (dictated by Nupur Pedraza NP). PRIMARY DIAGNOSES: 1. Malaise. 2. Eydob-dd-zjspili kidney injury. 3. Hypertension. 4. Status post left total knee replacement. 5. Hyperlipidemia. 6. Benign prostatic hypertrophy. 7. Chronic low back pain. CONSULTATIONS WHILE IN THE HOSPITAL: 1. Dr. Hawthorne, Orthopedics. 2. PAMELLA Stewart, Orthopedics. STUDIES WHILE IN THE HOSPITAL: 1. EKG: Sinus rhythm, right bundle-branch block. 2. Renal ultrasound: Stigmata of medical renal disease. Minimally complex Bosniak 2 cyst versus immediately adjacent simple cyst superior pole left kidney corresponding with hypodense lesion on CT without concern. 3. Abdomen and pelvis CT: Negative for urolithiasis or hydronephrosis. Followup left renal ultrasound suggested to differentiate between 8.1 cm hyperdense cyst and solid lesion at upper pole of the left kidney. Normal appendix documented. Mild colonic diverticulosis. No acute pathologic process of the alimentary tract evident. 4. Bladder ultrasound: No significant urinary retention. 5. Brain CT: No acute intracranial pathology. DISCHARGE HOME MEDICATIONS: Continued home medications: 1. Alfuzosin 10 mg p.o. daily. 2. Apixaban 2.5 mg p.o. b.i.d. 3. Fenofibrate 48 mg p.o. daily. 4. Oxycodone 10 mg p.o. q.4 hours p.r.n. 5. Simvastatin 20 mg p.o. daily. Discontinued home medications: 1. Hydrochlorothiazide 25 mg p.o. daily. 2. Lisinopril 40 mg p.o. daily. 3. OxyContin SR 30 mg p.o. q.12 hours p.r.n. 4. Spironolactone 12.5 mg p.o. daily. New home medications: 1. Maalox 30 mL p.o. q.6 hours p.r.n. 2. Melatonin 3 mg p.o. at bedtime p.r.n. 3. Omeprazole 20 mg p.o. daily. 4. Zofran ODT tabs 4 mg p.o. q.6 hours p.r.n. 5. Carafate 1 g p.o. at 0630, 1100, 1600, 2100. HISTORY OF PRESENT ILLNESS/HOSPITAL COURSE: Mr. Tracey is a 58-year-old male with a past medical history significant for hypertension, hyperlipidemia, BPH, possible CKD, status post left total knee replacement on 03/27/19; who presented to the emergency department on 04/10/19 with vague complaints of feeling "sick." Please see history and physical dictated by PAMELLA Pablo, for complete summary of events leading up to this hospitalization, but in short, the patient complained of general malaise, cold sweats, abdominal pain, nausea. He also reported a 20-pound weight loss since 03/27/19. While in the emergency department, the patient's workup revealed normocytic anemia, elevated creatinine of 2.22. Given these findings, hospitalists were asked to admit the patient for further evaluation. The patient was admitted to the medical floor. It should be noted that the patient's creatinine was initially noted by his primary care provider who he saw on 04/09/19 and stopped his hypertensive medications as they could be renal toxic. These medications were not reinitiated during this hospital stay. With the removal of these possible nephrotoxic medications and IV fluid hydration, the patient's creatinine has trended down nicely and is now 1.51. In regards to the normocytic anemia, the patient had iron studies which were fairly unremarkable, vitamin B12 which was 1400, folate 11.50, stool guaiac that was negative. There were no concerning findings for his normocytic anemia at this time. We suspect it could be secondary to surgery and/or acute on chronic kidney disease. As for the malaise, it was suspected this could be secondary to pain medication and other acute illnesses, i.e., khazp-he-hertqzl kidney injury and anemia. The patient's narcotics were reduced as the long-acting OxyContin was eliminated. The patient also reported difficulty sleeping and reports he was using the narcotics to help him sleep. The patient was provided with melatonin. The patient reports mild improvement in malaise today. Finally, as for abdominal pain, decreased oral intake, feeling unwell, and weight loss, we suspect this could be multifactorial. We suspect there could be an element of GI upset given narcotic use. The patient was trialed on Carafate and reported significant improvement in abdominal pain, nausea, and he had increase of oral intake. Given the Carafate was helpful, we have added PPI to the patient's regimen. I do think it would be a good idea for the patient to follow up with GI for further workup including possibly endoscopy and/or colonoscopy. The patient is due for colonoscopy as he had polyps previously and is on a q.5 year plan. Last colonoscopy was greater than 5 years ago. The patient was stable for discharge home. REVIEW OF SYSTEMS: The patient reports mild abdominal discomfort, but overall improvement. The patient reports mild nausea, but once again overall improvement. The patient reports pain to left knee, thigh, and hip. The patient denies chest pain, palpitations, shortness of breath, fever, dizziness, numbness, and tingling. A 14-point review of systems was completed and all were negative. PHYSICAL EXAMINATION: Vital Signs: Temp 97.9, HR 76, RR 14, O2 saturation 100% on room air, BP 118/ 67. General: Mr. Tracey is a 58-year-old male, who is sitting in bed. Appears to be in no acute distress. Appears stated age. HEENT: EOMs intact. PERRLA. Oral mucosa is moist without lesion. Posterior pharynx is clear. Neck: Supple. No lymphadenopathy. Respiratory: Lungs are clear. Good aeration. No accessory muscle use. No rhonchi, wheezes, or rales. Cardiac: S1, S2 present. Regular rate and rhythm. No murmurs, rubs, or gallops. Abdomen: Abdomen is soft. Bowel sounds normoactive throughout. Mild diffuse tenderness that the patient reports is improved today. No rigidity. No rebound tenderness. Extremities: No edema. No clubbing or cyanosis. Pedal pulses 2+ bilaterally. Musculoskeletal: No pain or deformities. Skin: Skin is grossly intact. Neuro: Neuro exam is grossly intact. No focal deficits or weakness. LABORATORY DATA: WBC 7.9, hemoglobin 10.3, hematocrit 32, platelets 386. Sodium 136, potassium 4.1, chloride 105, carbon dioxide 24, BUN 28, creatinine 1.51, glucose 116. DISCHARGE PLAN/FOLLOWUP: 1. Jarfw-gt-inuiwqa kidney disease: As mentioned above, the patient's creatinine has greatly improved. I have ordered the patient to have a repeat BMP on 04/16/19 and the results to be sent to his primary care, Dr. Castillo. The patient should not resume nephrotoxic medications including his BP medications of lisinopril, spironolactone, HCTZ. The patient should avoid other nephrotoxic medications including NSAIDs. The patient should continue oral hydration. 2. Malaise: As mentioned above, the patient has improved with adjustment of his pain medications. The patient has been instructed not to resume OxyContin. The patient should continue oxycodone p.r.n. The patient has been provided with a script for melatonin for sleep. If the patient needs further sleep aid, I have instructed him to contact his primary care provider. We also discussed activity and how this can help with fatigue and malaise. 3. Abdominal pain/decreased oral intake/feeling unwell/nausea/weight loss: Once again, this could be multifactorial, but we had found no acute process at this time. The patient should continue Carafate and omeprazole. The patient should follow up with his primary care next week. I have encouraged the patient to call Dr. Enriquez's office on Sunday and make an appointment for an evaluation and possible endoscopy/colonoscopy. The patient has been instructed on advancing diet slowly and ensuring adequate intake and oral hydration. 4. Hypertension: The patient has been off his home hypertension medications and has been normotensive. I would encourage the patient not to resume these unless instructed by his primary care provider. 5. Hyperlipidemia: The patient can continue his statin. 6. Benign prostatic hypertrophy: The patient can continue his alfuzosin. 7. Chronic back pain: The patient can continue his oxycodone. 8. Followup: I have encouraged the patient to call his primary care and follow up in 1 to 3 days. I have ordered a repeat BMP for 04/16/19 to reassess creatinine. I have ordered a repeat CBC to evaluate his H and H, also on . These results should be sent to his primary care, Dr. Castillo. I have encouraged the patient to call Dr. Enriquez's office on Sunday to set up a followup for evaluation. 9. Education: The patient was educated on signs and symptoms of new or worsening conditions and when to return to the emergency department. The patient stated understanding. This is a summarized report of a complex medical history and hospital stay. For further details, please see the entire medical record. TIME SPENT: Approximately 45 minutes was spent on this discharge, greater than half that time was spent [id number] with the patient discussing discharge plans and instructions. This plan has been discussed with my attending Dr. Johnson, who is in agreement with my plan of care. Reviewed by NUPUR PEDRAZA NP 04/21/19 @ 2149 [id number]/CPS #: [id number] DINO
== END 2019-04-13 14:45 | disposition home or self-care (01) ==
LOC: ED 10:51 → INTOOBSV 14:25 → MED 14:25
PROVIDERS: ADMIT Internal Medicine; ATTEND Hospitalist
DX: R53.81 Other malaise (principal); N17.9 Acute kidney failure, unspecified; E78.5 Hyperlipidemia, unspecified; N40.0 Benign prostatic hyperplasia without lower urinary tract symptoms; I10 Essential (primary) hypertension; Z96.652 Presence of left artificial knee joint; M54.9 Dorsalgia, unspecified; G89.29 Other chronic pain; Z79.899 Other long term (current) drug therapy; Z87.891 Personal history of nicotine dependence; R94.31 Abnormal electrocardiogram [ECG] [EKG]
CPT/HCPCS: 36415; 70450; 74176; 76775; 76857; 80048; 80053; 81003; 81015; 82270; 82570; 82607; 82728; 82746; 83540; 83550; 83605; 83735; 83930; 83935; 84300; 84443; 84484; 85014; 85018; 85025; 85027; 85652; 86140; 87086; 93005; 96361; 96374; 96376; 99282; A9270-GY; G0378; J2405

== ENCOUNTER 2019-05-29 12:39 | Inpatient (IN) | payer BC ==
[2019-05-29] MEDS ORDERED: metroNIDAZOLE IV 500 MG/100ML* 500 MG/100 ML BAG IVPB ONE (12:42)
[2019-05-29] MEDS ORDERED: Ciprofloxacin 400MG IVPREMIX(* 400 MG/200 ML BAG IVPB ONE (12:43)
[2019-05-29] MEDS ORDERED: NS 0.9% 1000 ML** 1,000 ML IV ONE (12:44)
[2019-05-29] MEDS ORDERED: Morphine 4 MG/ML VIAL (1 ml) 4 MG/ML VIAL IV ONE (13:11)
[2019-05-29] MEDS ORDERED: Ondansetron INJ* 2 MG/ML VIAL IV ONE (13:11)
[2019-05-29 13:26] LABS: ABS Basophils 0.1 10^3/ul (0-0.2); ABS Eosinophils 0.1 10^3/ul (0-0.6); ABS Lymphocytes 1.3 10^3/ul (1.0-4.8); ABS Monocytes 1.3 10^3/ul (0-0.8); ABS Neutrophils 11.7 10^3/ul (1.5-7.7); Eosinophil % 0.5 %; Hematocrit 42 % (42-52); Hemoglobin 14.2 g/dL (14.0-18.0); Lymphocyte % 9.1 %; Mean Corpuscular HGB Conc 34 g/dL (31-36); Mean Corpuscular Hemoglobin 29 pg (27-31); Mean Corpuscular Volume 85 fL (80-94); Mean Platelet Volume 7.9 fL (7.4-10.4); Platelet Count 321 10^3/uL (150-450); Red Blood Count 4.95 10^6 /uL (4.18-5.48); Red Cell Distribution Width 15 % (10-15); White Blood Count 14.4 10^3/uL (3.5-10.8)
--- OUTSIDE RECORDS SUMMARY | 2019-05-29 13:26 | XMS REPORT | Continuity of Care Document ---
:1960 External Reference #:[id number] Author Name Alessandro Faustin M.D. Address [address] [place] [address] Care Team Providers Name Role Phone John Castillo M.D. - Family Care Team Information [employer] [phone] Medicine Problems Active Problems Provider Date Hypercholesterolemia Onset: Essential hypertension Onset: Social History Type Date Description Comments Sex Unknown ETOH Use Denies alcohol use Tobacco Use Start: Unknown End: Unknown Patient is a former smoker Recreational Drug Use Denies Drug Use Smoking Status Reviewed: 05/08/19 Patient is a former smoker Allergies, Adverse Reactions, Alerts Description No Known Drug Allergies Medications Active Medications SIG Qnty Indications Ordering Provider Date Alfuzosin HCL ER Unknown 10mg Tablets ER 24HR Simvastatin Unknown 20mg Tablets Omeprazole Shortle, Nupur 20mg Capsules DR Shen Hydrochlorothiazide Unknown 25mg Tablets Lisinopril Unknown 40mg Tablets Spironolactone Unknown 25mg Tablets Immunizations Description No Information Available Vital Signs Description No Information Available Results Description No Information Available Procedures Description No Information Available Medical Devices Description No Information Available Encounters Description No Information Available Assessments Date Code Description Provider 05/08/2019 H35.3111 Nonexudative age-related macular Alessandro Faustin M.D. degeneration, right eye, early dry stage Plan of Treatment 05/08/2019 - Alessandro Faustin M.D.H35.3111 Nonexudative age-related macular degeneration, right eye, early dry stageComments:Smoking can increase the risk of developing or worsening any eye related disease, as well as affect your overall health. If you are a smoker, we strongly recommend that you quit.If you are not a smoker, we strongly recommend that you do not start. YOU HAVE A FEW DEPOSITS IN THE RIGHT EYE WHICH I WILL MONITOR FOR ANY PROGRESSION FOR MACULAR DEGENERATION. CALL IF YOU NOTICE ANY CHANGES IN THE VISIONFollow up:1 Year Follow Up DFE, OCT MAC You can expect to have your eyes dilated at your next visit. If Dr. Faustin orders any additional testing, it may require extra time. We recommend that you bring sunglasses, as dilation drops often make you light sensitive until they wear off. We always recommend you bring someone to drive you home if you are uncomfortable driving with your eyes dilated. If you have any questions before your next visit, feel free to call our office at . Functional Status Description No Information Available Mental Status Description No Information Available Referrals Description No Information Available
--- OUTSIDE RECORDS SUMMARY | 2019-05-29 13:26 | XMS REPORT | Continuity of Care Document ---
:1960 External Reference #:[id number] Author Name Latanya Clark M.D. 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 Onset: 01/27/2019 Localized, primary osteoarthritis of the pelvic Latanay Clark M.D. Onset: region and thigh Other tear of medial meniscus, current injury, Latanya Clark M.D. Onset: left knee, subsequent encounter Social History Type Date Description Comments Sex Unknown ETOH Use Currently consumes alcohol Tobacco Use Start: Unknown End: Patient is a former smoker Unknown Smoking Status Reviewed: 05/02/19 Patient is a former smoker Exercise Type/Frequency Exercises regularly Allergies, Adverse Reactions, Alerts Description No Known Drug Allergies Medications Active Medications SIG Qnty Indications Ordering Date Provider Amoxicillin take 4 tablets by 4tabs Latanya Clark, 04/17/2019 500mg Tablets mouth 1 hour M.D. before procedure Oxycodone HCL 1 by mouth every 42tabs Latanya Clark, 03/28/2019 10mg Tablets 4 hours as needed M.D. breakthru pain Cyclobenzaprine HCL take 1 tab three 30tabs Latanya Clark, 03/13/2019 10mg times a day as M.D. Tablets needed for pain/muscle spasms Voltaren 4 grams four 100gm Ankit Marianela, 01/13/2019 1% Gel times daily to left knee and left hip as needed for pain Alfuzosin HCL ER 1 by mouth every Unknown 10mg day Tablets ER 24HR Fenofibrate Unknown 50mg Capsules History Medications Oxycodone HCL ER 1 by mouth every 14tabs Latanya Clark, 03/28/2019 - 30mg 12 hours as M.D. 05/01/2019 Tab ER 12H Abuse-Det needed pain [place] take 1 tab by 30tabs Latanya Clark, 02/17/2019 - 5-325mg Tablets mouth every 8 M.D. 05/01/2019 hours as needed for pain Tramadol HCL 1 tab every 8 21tabs Latanya Clark, 02/03/2019 - 50mg hours as needed M.D. 05/01/2019 Tablets for pain Medications Administered in Office Medication SIG Qnty Indications Ordering Provider Date No Injection Latanya Clark M.D. 04/18/2019 Injection Depomedrol 40MG Latanya Clark M.D. 04/18/2019 Injection Synvisc Or Synvisc-One Injection 1 Latanya Clark M.D. 02/17/2019 MG Injection Depomedrol 40MG Latanya Clark M.D. 01/13/2019 Injection Immunizations Description No Information Available Vital Signs Date Vital Result Comment 05/02/2019 8:05am Height 73 inches 6'1" Weight 275.00 lb Heart Rate 65 /min BP Systolic 132 mmHg BP Diastolic 72 mmHg Respiratory Rate 18 /min Body Temperature 97.0 F Pain Level 0 BMI (Body Mass Index) 36.3 kg/m2 04/18/2019 11:18am Height 73 inches 6'1" Heart Rate 84 /min BP Systolic 136 mmHg BP Diastolic 86 mmHg Respiratory Rate 18 /min Body Temperature 97.1 F Results Test Date Facility Test Result H/L Range Note Xray Alumni Relations Officer In House Inj/Aspir <pending> 9 Major JT Or Bursa W/ US Inr/Protime [facility] Inr 0.97 Normal 0.82-1.09 1 , [address] [place] [address] [phone] Laboratory test [facility] Partial 32.7 seconds Normal 26.0-38.0 3 finding [address] [place] [address] PTT [phone] Type & Screen [facility] Patient AB Negative [address] [place] [address] [phone] Antibody Screen NEGATIVE 1 PAIN IN LEFT KNEE, UNILATERAL PRIMARY OSTEOARTHRIT 2 Standard intensity warfarin therapeutic range: 2.0-3.0 High intensity warfarin therapeutic range: 2.5-3.5 3 AA 03/27 Procedures Date Code Description Status 04/18/2019 35168 Inj/Aspir Major JT Or Bursa W/ US Completed 03/27/2019 30398 TKR Total Knee Replacement Completed 03/27/2019 00519 TKR Total Knee Replacement Completed 02/17/201907694 Inject/Drain Joint/Bursa Major W/O US Completed 01/13/201972717 Inject/Drain Joint/Bursa Major W/O US Completed Medical Devices Description No Information Available Encounters Type Date Location Provider Dx Diagnosis Office Visit 03/27/2019 [facility] Lydia Johnson, Z96.652 Presence of left 10:13a Assoc,pc D.O. artificial knee Hospitalists joint I10 Essential (primary) hypertension R09.02 Hypoxemia G47.33 Obstructive sleep apnea (adult) (pediatric) Office Visit 03/10/2019 8:45a [facility] Latanya Clark, M25.562 Pain in left Of [facility] M.D. knee M17.12 Unilateral primary osteoarthritis, left knee M25.462 Effusion, left knee Office Visit 02/06/2019 9:15a Orthopedic Iliana Keene M25.562 Pain in [facility] left knee M17.12 Unilateral primary osteoarthritis, left knee Office Visit 01/27/2019 8:00a [facility] Latanya Clark, M25.562 Pain in left Of [facility] M.D. knee M17.12 Unilateral primary osteoarthritis, left knee M25.552 Pain in left hip M16.12 Unilateral primary osteoarthritis, left hip S83.242A Oth tear of medial meniscus, current injury, left knee, init Office Visit 01/13/2019 10:00a [facility] Latanya Clark, M25.562 Pain in left Of [facility] M.D. knee M17.12 Unilateral primary osteoarthritis, left knee M25.552 Pain in left hip M16.12 Unilateral primary osteoarthritis, left hip M23.8x2 Other internal derangements of left knee Assessments Date Code Description Provider 05/02/2019 Z96.652 Presence of left artificial knee joint Latanya Clark M.D. 05/02/2019 M16.12 Unilateral primary osteoarthritis, left Latanya Clark M.D. hip 05/02/2019 M25.552 Pain in left hip Latanya Clark M.D. 04/18/2019 Z96.652 Presence of left artificial knee joint Latanya Clark M.D. 04/18/2019 M17.12 Unilateral primary osteoarthritis, left Latanya Clark M.D. knee 04/18/2019 M25.552 Pain in left hip Latanya Clark M.D. 04/18/2019 M16.12 Unilateral primary osteoarthritis, left Latanya Clark M.D. hip 04/13/2019 R53.81 Other malaise Nupur Coy, DIRECTOR OF ENTERTAINMENT 04/12/2019 R53.81 Other malaise Nupur Coy, DIRECTOR OF ENTERTAINMENT 04/11/2019 R53.81 Other malaise Rosemary Winter, PAMELLA 04/10/2019 Z96.652 Presence of left artificial knee joint Matias Hawthorne MD 04/10/2019 Z47.1 Aftercare following joint replacement Matias Hawthorne MD surgery 04/10/2019 R53.81 Other malaise Rosemary Winter, PAMELLA 03/27/2019 Z96.652 Presence of left artificial knee joint Lydia Johnson D.O. 03/27/2019 I10 Essential (primary) hypertension Lydia Johnson D.O. 03/27/2019 M17.12 Unilateral primary osteoarthritis, left Katiana Khan, RPA- C knee 03/27/2019 R09.02 Hypoxemia Lydia Johnson D.O. 03/27/2019 G47.33 Obstructive sleep apnea (adult) Lydia Johnson D.O. (pediatric) 03/27/2019 M17.12 Unilateral primary osteoarthritis, left Latanya Clark M.D. knee 03/19/2019 M25.562 Pain in left knee Latanya Clark M.D. 03/19/2019 M17.12 Unilateral primary osteoarthritis, left Latanya Clark M.D. knee 03/10/2019 M25.562 Pain in left knee Latanya Clark M.D. 03/10/2019 M17.12 Unilateral primary osteoarthritis, left Latanya Clark M.D. knee 03/10/2019 M25.462 Effusion, left knee Latanya Clark M.D. 02/17/2019 M25.562 Pain in left knee Latanya Clark M.D. 02/17/2019 M17.12 Unilateral primary osteoarthritis, left Latanya Clark M.D. knee 02/06/2019 M25.562 Pain in left knee Iliana Keene PA 02/06/2019 M17.12 Unilateral primary osteoarthritis, left PAMELLA Valdez knee 01/27/2019 M25.562 Pain in left knee Latanya Clark M.D. 01/27/2019 M17.12 Unilateral primary osteoarthritis, left Latanya Clark M.D. knee 01/27/2019 M25.552 Pain in left hip Latanya Clark M.D. 01/27/2019 M16.12 Unilateral primary osteoarthritis, left Latanya Clark M.D. hip 01/27/2019 S83.242A Other tear of medial meniscus, current Latanya Clark M.D. injury, left knee, in 01/13/2019 M25.562 Pain in left knee Latanya Clark M.D. 01/13/2019 M17.12 Unilateral primary osteoarthritis, left Latanya Clark M.D. knee 01/13/2019 M25.552 Pain in left hip Latanya Clark M.D. 01/13/2019 M16.12 Unilateral primary osteoarthritis, left Latanya Clark M.D. hip 01/13/2019 M23.8x2 Other internal derangements of left knee Latanya Clark M.D. Plan of Treatment Future Appointment(s):06/16/2019 8:15 am [facility] - Latanya Clark M.D.Z96.652 Presence of left artificial knee jointFollow up:Follow up: 6 ptirxD89.12 Unilateral primary osteoarthritis, left hipM25.552 Pain in left hip Functional Status Description No Information Available Mental Status Description No Information Available Referrals Description No Information Available
--- OUTSIDE RECORDS SUMMARY | 2019-05-29 13:26 | XMS REPORT | Continuity of Care Document ---
:1960 External Reference #:[id number] Author Name Latanya Clark M.D. 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 before procedure Oxycodone HCL ER 1 by mouth every 14tabs Latanya Eduardo, 03/28/2019 30mg Tab ER 12H 12 hours as M.D. Abuse-Det needed pain Oxycodone HCL 1 by mouth every 42tabs Latanya Eduardo, 03/28/2019 10mg Tablets 4 hours as M.D. needed breakthru pain Cyclobenzaprine HCL take 1 tab three 30tabs Latanya Eduardo, 03/13/2019 10mg Tablets times a day as M.D. needed for pain/muscle spasms [place] take 1 tab by 30tabs Latanya Clark, 02/17/2019 5-325mg Tablets mouth every 8 M.D. hours as needed for pain Tramadol HCL 1 tab every 8 21tabs Latanya Clark, 02/03/2019 50mg Tablets hours as needed M.D. for pain Voltaren 4 grams four 100gm Ankit Marianela, 01/13/2019 1% Gel times daily to MD left knee and left hip as needed for pain Lisinopril 1 by mouth every Unknown 40mg Tablets day Spironolactone 1/2 by mouth Unknown 25mg Tablets every day Hydrochlorothiazide 1 by mouth every Unknown 25mg Tablets day Alfuzosin HCL ER 1 by mouth every Unknown 10mg Tablets ER day 24HR Fenofibrate Unknown 50mg Capsules Medications Administered in Office Medication SIG Qnty Indications Ordering Provider Date Synvisc Or Synvisc-One Injection 1 Latanya Clark M.D. 02/17/2019 MG Injection Depomedrol 40MG Latanya Clark M.D. 01/13/2019 Injection Immunizations Description No Information Available Vital Signs Date Vital Result Comment 04/18/2019 11:18am Height 73 inches 6'1" Heart Rate 84 /min BP Systolic 136 mmHg BP Diastolic 86 mmHg Respiratory Rate 18 /min Body Temperature 97.1 F 03/19/2019 9:49am Height 73 inches 6'1" Weight 275.00 lb Heart Rate 69 /min BP Systolic 124 mmHg BP Diastolic 78 mmHg Body Temperature 96.4 F O2 % BldC Oximetry 97 % BMI (Body Mass Index) 36.3 kg/m2 Results Test Date Facility Test Result H/L Range Note Xray Clip Baker In House Inj/Aspir <pending> 9 Major JT Or Bursa W/ US Inr/Protime [facility] Inr 0.97 Normal 0.82-1.09 1 , [address] [place] [address] [phone] Laboratory test [facility] Partial 32.7 seconds Normal 26.0-38.0 3 finding [address] [place] [address] PTT [phone] Type & Screen [facility] Patient AB Negative [address] [place] [address] [phone] Antibody Screen NEGATIVE 1 PAIN IN LEFT KNEE, UNILATERAL PRIMARY OSTEOARTHRIT 2 Standard intensity warfarin therapeutic range: 2.0-3.0 High intensity warfarin therapeutic range: 2.5-3.5 3 AA 03/27 Procedures Date Code Description Status 04/18/201927722 Inj/Aspir Major JT Or Bursa W/ US Completed 03/27/201943264 TKR Total Knee Replacement Completed 03/27/2019 70983 TKR Total Knee Replacement Completed 02/17/201941489 Inject/Drain Joint/Bursa Major W/O US Completed 01/13/2019 Inject/Drain Joint/Bursa Major W/O US Completed Medical Devices Description No Information Available Encounters Type Date Location Provider Dx Diagnosis Office Visit 03/27/2019 [facility] Lydia Johnson, Z96.652 Presence of left 10:13a [...] Latanya Clark M25.562 Pain in left Of [facility]. M.D. knee M17.12 Unilateral primary osteoarthritis, left knee M25.552 Pain in left hip M16.12 Unilateral primary osteoarthritis, left hip S83.242A Oth tear of medial meniscus, current injury, left knee, init Office Visit 01/13/2019 10:00a [facility] Latanya Clark M25.562 Pain in left Of [facility]. M.D. knee M17.12 Unilateral primary osteoarthritis, left knee M25.552 Pain in left hip M16.12 Unilateral primary osteoarthritis, left hip M23.8x2 Other internal derangements of left knee Assessments Date Code Description Provider 04/18/2019 Z96.652 Presence of left artificial knee joint Latanya Clark M.D. 04/18/2019 M17.12 Unilateral primary osteoarthritis, left Latanya Clark M.D. knee 04/18/2019 M25.552 Pain in left hip Latanya Clark M.D. 04/18/2019 M16.12 Unilateral primary osteoarthritis, left hip Latanya Clark M.D. 04/13/2019 R53.81 Other malaise Nupur Coy, FIRESTOPPER TECHNICIAN 04/12/2019 R53.81 Other malaise Nupur Coy, FIRESTOPPER TECHNICIAN 04/11/2019 R53.81 Other malaise Rosemary Winter, PA 04/10/2019 R53.81 Other malaise Rosemary Winter, PA 03/27/2019 Z96.652 Presence of left artificial knee joint Alex LizOMarta 03/27/2019 I10 Essential (primary) hypertension Alex LizOMarta 03/27/2019 M17.12 Unilateral primary osteoarthritis, left Katiana Khan, RPA- C knee 03/27/2019 R09.02 Hypoxemia Alex LizOMarta 03/27/2019 G47.33 Obstructive sleep apnea (adult) (pediatric) Alex LizO. 03/27/2019 M17.12 Unilateral primary osteoarthritis, left Latanya [...] 02/17/2019 M17.12 Unilateral primary osteoarthritis, left Latanya Eduardo, M.D. knee 02/06/2019 M25.562 Pain in left knee Iliana Granados Jassi PA 02/06/2019 M17.12 Unilateral primary osteoarthritis, left Iliana Granados Jassi, PAMELLA knee 01/27/2019 M25.562 Pain in left knee Latanya Clark M.D. 01/27/2019 M17.12 Unilateral primary osteoarthritis, left Latanya Clark M.D. knee 01/27/2019 M25.552 Pain in left hip Latanya Clark M.D. 01/27/2019 M16.12 Unilateral primary osteoarthritis, left hip Latanya Clark M.D. 01/27/2019 S83.242A Other tear of medial [...] Latanya Clark M.D. Plan of Treatment Future Appointment(s):05/02/2019 8:00 am [facility] - Latanya Clark M.D.Z96.652 Presence of left artificial knee jointFollow up:Follow up: 2 months with x-raysM17.12 Unilateral primary osteoarthritis, left kneeM25.552 Pain in left hipFollow up: Follow up: 2 bfmhsJ68.12 Unilateral primary osteoarthritis, left hip Functional Status Description No Information Available Mental Status Description No Information Available Referrals Description No Information Available
--- OUTSIDE RECORDS SUMMARY | 2019-05-29 13:26 | XMS REPORT | Continuity of Care Document ---
:1960 External Reference #:[id number] Author Name Elham De La Rosa PA-C Address [address] [place] [address] Care Team Providers Name Role Phone John Castillo MD Care Team Information Sonography Technologist [phone] Problems Active Problems Provider Date History of polyp of colon Elham De La Rosa PA-C Onset: 04/17/2019 Anemia Elham De La Rosa PA-C Onset: 04/17/2019 Dysphagia Elham De La Rosa PA-C Onset: 04/17/2019 Generalized abdominal pain Elham De La Rosa PA-C Onset: 04/17/2019 Social History Type Date Description Comments Sex Unknown Tobacco Use Start: Unknown End: Unknown Patient is a former smoker Smoking Status Reviewed: 04/17/19 Patient is a former smoker Allergies, Adverse Reactions, Alerts Description No Known Drug Allergies Medications Active Medications SIG Qnty Indications Ordering Provider Date Peg 3350/Electrolytes use as directed 4000ml Z86.010 Carlos Diaz, DO 12/2018 240gm Solution Rec Almacone Q6H 1units Unknown 04/13/2019 [id number] Suspension Sucralfate 0630,1100,1600,21 60tabs Unknown 04/13/2019 1gm Tablets 00 Ondansetron Q6H 30tabs Unknown 04/13/2019 4mg Tablets Dispers Omeprazole Every Day 30caps Unknown 04/13/[address] Anderson Twice Daily 60tabs Unknown 03/28/2019 2.5mg Tablets Oxycodone HCL Q4H 28tabs Unknown 03/28/2019 5mg Tablets Alfuzosin HCL ER Every Morning Unknown 03/19/2019 10mg Tablets ER 24HR Fenofibrate Every Morning Unknown 03/19/2019 48mg Tablets Simvastatin Every Morning Unknown 03/19/2019 20mg Tablets Immunizations Description No Information Available Vital Signs Date Vital Result Comment 04/17/2019 8:36am Height 73 inches 6'1" Weight 260.00 lb BP Systolic 138 mmHg BP Diastolic 75 mmHg Heart Rate 82 /min BMI (Body Mass Index) 34.3 kg/m2 Results Test Date Facility Test Result H/L Range Note Lab Results N2N/CCD Import Estimated GFR 57.3 9 () Estimated N2N/CCD Import Estimated 47.4 glomerular 9 glomerular filtration rate filtration rate (GFR) non-Afr (GFR) non- Serum or plasma N2N/CCD Import Serum or plasma 9.2 mg/dL 8.6- 10.3 calcium 9 calcium measurement measurement (mass/volume) (mass/volume) Serum or plasma N2N/CCD Import Serum or plasma 18.5 8-20 urea 9 urea nitrogen/creatini nitrogen/creatin ne ratio ine ratio Serum or plasma N2N/CCD Import Serum or plasma 1.51 mg/dL 0.67 -1.17 creatinine 9 creatinine measurement measurement (mass/volum (mass/volume) Serum or plasma N2N/CCD Import Serum or plasma 28 mg/dL 6-24 urea nitrogen 9 urea nitrogen measurement measurement (mass/vo (mass/volume) Serum glucose N2N/CCD Import Serum glucose 116 mg/dL 70-100 measurement 9 measurement (mass/volume) (mass/volume) Serum or plasma N2N/CCD Import Serum or plasma 7 mmol/L 2-11 anion gap 9 anion gap Serum or plasma N2N/CCD Import Serum or plasma 24 mmol/L 22- 32 carbon dioxide, 9 carbon dioxide, total measurement total measurement (moles/volume) Serum or plasma N2N/CCD Import Serum or plasma 105 mmol/L 101- 111 chloride 9 chloride measurement measurement (moles/volume (moles/volume) Serum or plasma N2N/CCD Import Serum or plasma 4.1 mmol/L 3.5- 5.0 potassium 9 potassium measurement measurement (moles/volum (moles/volume) Serum or plasma N2N/CCD Import Serum or plasma 136 mmol/L 135- 145 sodium 9 sodium measurement measurement (moles/volume) (moles/volume) Automated blood N2N/CCD Import Automated blood 28 % 42-52 hematocrit 9 hematocrit (percentage) (percentage) Blood hemoglobin N2N/CCD Import Blood hemoglobin 10.0 g/dL 14.0-18.0 measurement 9 measurement (mass/volume) (mass/volume) Hemoglobin And [facility] Hemoglobin Blood <pending> Hematocrit 9 Hematocrit <pending> BMP W/O Egfr(!) 04/13/2019 [facility] Sodium(!) <pending> Potassium(!) <pending> Chloride Serum/Plasma(!) <pending> Carbon Dioxide Ser/Plasm(!) <pending> BUN - Urea Nitrogen(!) <pending> Calcium Ser/Plasma Mass/Vol(!) <pending> Creatinine Serum Mass/Vol(!) <pending> Glucose Serum(!) <pending> Serum or plasma 04/12/2019 N2N/CCD Import Serum or plasma 11.50 ng/mL folate measurement folate measurement (mass/volume) (mass/volume) Serum or plasma 04/12/2019 N2N/CCD Import Serum or plasma 1411 pg/mL 180 -914 vitamin B12 vitamin B12 measurement measurement (mass/volu (mass/volume) Serum or plasma 04/12/2019 N2N/CCD Import Serum or plasma 300.7 ng/mL 24 -336 ferritin ferritin measurement measurement (mass/volume) (mass/volume) Lab Results 04/12/2019 N2N/CCD Import Percent Iron 20 % 15-55 Saturation Serum or plasma 04/12/2019 N2N/CCD Import Serum or plasma 197 mg/dL 203- 362 transferrin transferrin measurement measurement (mass/volu (mass/volume) Serum or plasma 04/12/2019 N2N/CCD Import Serum or plasma 276 g/dL 250 -450 iron binding iron binding capacity capacity measurement measurement (mass/volume) Lab Results 04/12/2019 N2N/CCD Import Unsaturated Iron < 261 Binding g/dL Serum or plasma 04/12/2019 N2N/CCD Import Serum or plasma 55 g/dL 50- 212 iron measurement iron measurement (mass/volume) (mass/volume) Automated blood 04/12/2019 N2N/CCD Import Automated blood 6.9 fL 7.4- 10.4 platelet mean platelet mean volume measurement volume measurement Automated blood 04/12/2019 N2N/CCD Import Automated blood 386 10^3/uL 150-450 platelet count platelet count (number/volume) (number/volume) Automated 04/12/2019 N2N/CCD Import Automated 14 % 10-15 erythrocyte erythrocyte distribution width distribution width ratio ratio Automated 04/12/2019 N2N/CCD Import Automated 33 g/dL 31-36 erythrocyte mean erythrocyte mean corpuscular corpuscular hemoglobin hemoglobin concentration measurement (mass/vol Automated 04/12/2019 N2N/CCD Import Automated 30 pg 27-31 erythrocyte mean erythrocyte mean corpuscular corpuscular hemoglobin hemoglobin (mass per erythrocyte) Automated 04/12/2019 N2N/CCD Import Automated 91 fL 80-94 erythrocyte mean erythrocyte mean corpuscular volume corpuscular volume Automated blood 04/12/2019 N2N/CCD Import Automated blood 3.49 4.18- 5.48 erythrocyte count erythrocyte count 10^6/uL (number/volume) (number/volume) Automated blood 04/12/2019 N2N/CCD Import Automated blood 7.9 10^3/uL 3.5-10.8 leukocytes count leukocytes count corrected for nuc corrected for nucleated erythrocytes (number/volume) Laboratory test 04/12/2019 [facility] Occult Blood #1 <pending> finding Screen Automated blood 04/11/2019 N2N/CCD Import Automated blood 0.0 nucleated nucleated erythrocytes erythrocytes detection detection Blood immature 04/11/2019 N2N/CCD Import Blood immature 1.0 % 0-9 granulocytes/100 granulocytes/100 leukocytes leukocytes Manual blood 04/11/2019 N2N/CCD Import Manual blood 64.0 % neutrophil count as neutrophil count percentage of dirk as percentage of leukocytes (number fraction) Lab Results 04/11/2019 N2N/CCD Import Lymphocytes % 20.0 % Lymphocyte 04/11/2019 N2N/CCD Import Lymphocyte 6.0 % proliferation test proliferation test Lab Results 04/11/2019 N2N/CCD Import Eosinophils % 3.0 % Percent of variant 04/11/2019 N2N/CCD Import Percent of variant 6.0 % 0- 6 lymphocytes in lymphocytes in blood by manual blood by manual count Manual blood 04/11/2019 N2N/CCD Import Manual blood 1.0 % 0-2 neutrophilic neutrophilic metamyelocyte count metamyelocyte as p count as percentage of leukocytes Red blood cell 04/11/2019 N2N/CCD Import Red blood cell Normal Normal morphology morphology Lab Results 04/11/2019 N2N/CCD Import Anisocytosis 1+ Teardrop cell 04/11/2019 N2N/CCD Import Teardrop cell 1+ detection detection Elliptocyte 04/11/2019 N2N/CCD Import Elliptocyte 2+ detection detection CBC W/Auto 04/11/2019 [facility] White Blood Count <pending> Differential(!) Ser Auto CNT RBC Red Blood Count <pending> Hemoglobin Blood <pending> Hematocrit <pending> MCV (Corpuscular Volume) <pending> MCH (Corpuscular Hemoglobin) <pending> MCHC (Corpuscular Hemog Conc) <pending> RDW <pending> Platelet Count Blood Auto CNT <pending> MPV <pending> Lymph% <pending> [place]ook% <pending> Neutrophil % <pending> Absolute Lymphocytes <pending> Absolute Monocytes <pending> Absolute Neutrophils <pending> CT biopsy liver 04/11/2019 N2N/CCD Import CT biopsy liver 4.8 10^3/ul 1.5-7.7 Blood lymphocytes 04/11/2019 N2N/CCD Import Blood lymphocytes 1.8 10^3/ul 1.0-4.8 automated count automated count (number/volume) (number/volume) Blood monocytes 04/11/2019 N2N/CCD Import Blood monocytes 0.8 10^3/ul 0- 0.8 automated count automated count (number/volume) (number/volume) Automated blood 04/11/2019 N2N/CCD Import Automated blood 0.2 10^3/ul 0- 0.6 eosinophil count eosinophil count (number/volume) (number/volume) Automated blood 04/11/2019 N2N/CCD Import Automated blood 0.1 10^3/ul 0- 0.2 basophil count basophil count (number/volume) (number/volume) Blood nucleated 04/11/2019 N2N/CCD Import Blood nucleated 0.0 10^3/ul erythrocytes erythrocytes automated count automated count (numb (number/volume) Automated blood 04/11/2019 N2N/CCD Import Automated blood 62.9 % neutrophils/100 neutrophils/100 leukocytes leukocytes Automated blood 04/11/2019 N2N/CCD Import Automated blood 23.1 % lymphocytes/100 lymphocytes/100 leukocytes leukocytes Automated blood 04/11/2019 N2N/CCD Import Automated blood 10.2 % monocytes/100 monocytes/100 leukocytes leukocytes Automated blood 04/11/2019 N2N/CCD Import Automated blood 3.0 % eosinophils/100 eosinophils/100 leukocytes leukocytes Automated blood 04/11/2019 N2N/CCD Import Automated blood 0.8 % basophils/100 basophils/100 leukocytes leukocytes Serum or plasma 04/10/2019 N2N/CCD Import Serum or plasma 1.3 1-3 albumin/globulin albumin/globulin mass ratio mass ratio Lab Results 04/10/2019 N2N/CCD Import Globulin 3.2 g/dL 2-4 Serum or plasma 04/10/2019 N2N/CCD Import Serum or plasma 4.3 g/dL 3.2- 5.2 albumin measurement albumin by bromocresol measurement by bromocresol green (BCG) dye binding method (ma Serum total protein 04/10/2019 N2N/CCD Import Serum total 7.5 g/dL 6.4- 8.9 measurement protein (mass/volume) measurement (mass/volume) Serum or plasma 04/10/2019 N2N/CCD Import Serum or plasma 2.2 mg/dL 1.9- 2.7 magnesium magnesium measurement measurement (mass/volume (mass/volume) CT biopsy liver 04/10/2019 N2N/CCD Import CT biopsy liver 307 mOsm/kg 275-295 Erythrocyte 04/10/2019 N2N/CCD Import Erythrocyte 63 mm/Hr 0-19 sedimentation rate sedimentation rate by Westergren metho by Westergren method Laboratory test 04/10/2019 [facility] Troponin I <pending> finding TSH Thyroid Stim Hormone(!) <pending> CMP(!) 04/10/2019 [facility] Sodium(!) <pending> Potassium(!) <pending> Chloride Serum/Plasma(!) <pending> Carbon Dioxide Ser/Plasm(!) <pending> BUN - Urea Nitrogen(!) <pending> Calcium Ser/Plasma Mass/Vol(!) <pending> Creatinine Serum Mass/Vol(!) <pending> Glucose Serum(!) <pending> BUN/Creatinine Ratio(!) <pending> Albumin Serum/Plasma(!) <pending> Alkaline Phosphatase(!) <pending> Bilirubin Total Mass/Vol(!) <pending> Ast - Sgot <pending> Alt - SGPT <pending> Protein Total <pending> CMP, Magnesium, 04/10/2019 [facility] Magnesium Ser/Plasma <pending> Phosphorus Mass/Vol Phosphorus <pending> Laboratory test 04/10/2019 [facility] Lactic Acid Ser/Plas <pending> finding Mass/Vol Laboratory test 04/10/2019 [facility] Lactic Acid Ser/Plas <pending> finding Mass/Vol Serum or plasma 04/10/2019 N2N/CCD Import Serum or plasma 0.90 mg/dL 0.2 - total bilirubin total bilirubin 1.0 measurement (mass/ measurement (mass/volume) Serum or plasma 04/10/2019 N2N/CCD Import Serum or plasma 0.7 mmol/L 0.5 - lactate measurement lactate measurement 2.0 (moles/volume) (moles/volume) Serum or plasma 04/10/2019 N2N/CCD Import Serum or plasma 70 U/L 34-1 alkaline phosphatase alkaline phosphatase 04 measurement ( measurement (enzymatic activity/volume) Serum or plasma 04/10/2019 N2N/CCD Import Serum or plasma 10 U/L 7-52 alanine alanine aminotransferase aminotransferase measureme measurement (enzymatic activity/volume) Serum or plasma 04/10/2019 N2N/CCD Import Serum or plasma 11 U/L 13-3 aspartate aspartate 9 aminotransferase aminotransferase measure measurement (enzymatic activity/volume) Serum or plasma 04/10/2019 N2N/CCD Import Serum or plasma 0.00 ng/mL troponin i.cardiac troponin i.cardiac measurement (ma measurement (mass/volume) Serum or plasma 04/10/2019 N2N/CCD Import Serum or plasma 1.85 mcIU/mL 0.34 thyroid stimulating thyroid stimulating -5.6 hormone (TSH) hormone (TSH) 0 measurement (units/volume) Serum or plasma C 04/10/2019 N2N/CCD Import Serum or plasma C 30.98 mg/L 0-8. reactive protein reactive protein 00 measurement (ma measurement (mass/volume) CBC W/Auto 04/10/2019 [facility] White Blood Count <pending> Differential(!) Ser Auto CNT RBC Red Blood Count <pending> Hemoglobin Blood <pending> Hematocrit <pending> MCV (Corpuscular Volume) <pending> MCH (Corpuscular Hemoglobin) <pending> MCHC (Corpuscular Hemog Conc) <pending> RDW <pending> Platelet Count Blood Auto CNT <pending> MPV <pending> Lymph% <pending> M[place]% <pending> Neutrophil % <pending> Absolute Lymphocytes <pending> Absolute Monocytes <pending> Absolute Neutrophils <pending> Xray 04/10/2019 [facility] [place] [facility] [place] Renal Complete <pending> Xray 04/10/2019 [facility] [place], Abd & Pelvis <pending> W/O Contrast Xray 04/10/2019 [facility] [place] [place], Urinary <pending> Bladder (32336) Influenza virus A 04/10/2019 N2N/CCD Import Influenza virus A Negative Negative Rna detection by Rna detection by probe and targe probe and target amplification method Influenza virus B 04/10/2019 N2N/CCD Import Influenza virus B Negative Negative Rna detection by Rna detection by probe and targe probe and target amplification method Color of Urine by 04/10/2019 N2N/CCD Import Color of Urine by Yellow Auto Auto Urine clarity by 04/10/2019 N2N/CCD Import Urine clarity by Clear refractometry refractometry automated automated Specific gravity 04/10/2019 N2N/CCD Import Specific gravity 1.014 1.010- 1.030 of Urine by of Urine by Refractometry Refractometry automat automated Lab Results 04/10/2019 N2N/CCD Import Urine pH 5.0 5-9 Urine 04/10/2019 N2N/CCD Import Urine Negative Negative urobilinogen urobilinogen measurement measurement (units/volume) by (units/volume) by t test strip Ketones 04/10/2019 N2N/CCD Import Ketones Negative Negative [Mass/volume] in [Mass/volume] in Urine by Urine by Automated test s Automated test strip Protein 04/10/2019 N2N/CCD Import Protein Negative Negative [Mass/volume] in [Mass/volume] in Urine by Urine by Automated test s Automated test strip Urine leukocyte 04/10/2019 N2N/CCD Import Urine leukocyte Negative Negative esterase esterase detection by detection by automated te automated test strip Urine hemoglobin 04/10/2019 N2N/CCD Import Urine hemoglobin 1+ Negative detection by test detection by test strip strip Urine ascorbic 04/10/2019 N2N/CCD Import Urine ascorbic * Negative acid detection acid detection Ua Microscopic(!) 04/10/2019 [facility] Ua WBC <pending> Ua RBC <pending> Ua Epithelial Cells <pending> Ua Crystals <pending> Ua Bacteria <pending> Ua Mucous <pending> Ua Amorphous <pending> Ua Yeast <pending> Ua Casts <pending> Laboratory test 04/10/2019 [facility] Ua Creatinine <pending> finding Concentration 24 Culture, urine 04/10/2019 N2N/CCD Import Culture, urine No Growth (<1,000 Cfu/mL) Osmolality of 04/10/2019 N2N/CCD Import Osmolality of 565 mOsm/kg 100- 1150 Urine Urine Urine sodium 04/10/2019 N2N/CCD Import Urine sodium 43 mmol/L measurement measurement (moles/volume) (moles/volume) Urine creatinine 04/10/2019 N2N/CCD Import Urine creatinine 111.84 mg/dL measurement measurement (mass/volume) (mass/volume) Urine nitrite 04/10/2019 N2N/CCD Import Urine nitrite Negative Negative detection by detection by automated test automated test strip strip Urine total 04/10/2019 N2N/CCD Import Urine total Negative Negative bilirubin bilirubin detection by detection by automated test automated test strip Urine glucose 04/10/2019 N2N/CCD Import Urine glucose Negative Negative detection by detection by automated test automated test strip strip Urine bacteria 04/10/2019 N2N/CCD Import Urine bacteria Absent Absent detection by detection by automated method automated method Urine erythrocytes 04/10/2019 N2N/CCD Import Urine Trace(0-2/hp Absent detection by erythrocytes f) automated method detection by automated method Urine leukocytes 04/10/2019 N2N/CCD Import Urine leukocytes Trace(0-5/hp Absent detection by detection by f) automated method automated method Lab Results 03/28/2019 N2N/CCD Import Estimated GFR 73.3 () Estimated 03/28/2019 N2N/CCD Import Estimated 60.6 glomerular glomerular filtration rate filtration rate (GFR) non-Afr (GFR) non- Serum or plasma 03/28/2019 N2N/CCD Import Serum or plasma 8.9 mg/dL 8.6- 10.3 calcium calcium measurement measurement (mass/volume) (mass/volume) Serum or plasma 03/28/2019 N2N/CCD Import Serum or plasma 18.0 8-20 urea urea nitrogen/creatinin nitrogen/creatini e ratio ne ratio Serum or plasma 03/28/2019 N2N/CCD Import Serum or plasma 1.22 mg/dL 0.67-1.17 creatinine creatinine measurement measurement (mass/volum (mass/volume) Serum or plasma 03/28/2019 N2N/CCD Import Serum or plasma 22 mg/dL 6-24 urea nitrogen urea nitrogen measurement measurement (mass/vo (mass/volume) Serum glucose 03/28/2019 N2N/CCD Import Serum glucose 167 mg/dL 70-100 measurement measurement (mass/volume) (mass/volume) Serum or plasma 03/28/2019 N2N/CCD Import Serum or plasma 8 mmol/L 2-11 anion gap anion gap Serum or plasma 03/28/2019 N2N/CCD Import Serum or plasma 25 mmol/L 22- 32 carbon dioxide, carbon dioxide, total measurement total measurement (moles/volume) Serum or plasma 03/28/2019 N2N/CCD Import Serum or plasma 104 mmol/L 101 -111 chloride chloride measurement measurement (moles/volume (moles/volume) Serum or plasma 03/28/2019 N2N/CCD Import Serum or plasma 4.0 mmol/L 3.5 -5.0 potassium potassium measurement measurement (moles/volum (moles/volume) Serum or plasma 03/28/2019 N2N/CCD Import Serum or plasma 137 mmol/L 135 -145 sodium measurement sodium (moles/volume) measurement (moles/volume) Automated blood 03/28/2019 N2N/CCD Import Automated blood 7.8 fL 7.4- 10.4 platelet mean platelet mean volume measurement volume measurement Automated blood 03/28/2019 N2N/CCD Import Automated blood 256 10^3/uL 150-450 platelet count platelet count (number/volume) (number/volume) Automated blood 03/28/2019 N2N/CCD Import Automated blood 36 % 42-52 hematocrit hematocrit (percentage) (percentage) Blood hemoglobin 03/28/2019 N2N/CCD Import Blood hemoglobin 12.4 g/dL 14.0-18.0 measurement measurement (mass/volume) (mass/volume) Whole blood 03/19/2019 N2N/CCD Import Whole blood 0.97 0.82-1.09 international international normalized ratio normalized ratio (Inr) (Inr) Activated partial 03/19/2019 N2N/CCD Import Activated partial 32.7 seconds 26.0-38.0 thromboplastin thromboplastin time (aPTT) in pl time (aPTT) in platelet poor plasma by coagulation a Procedures Description No Information Available Medical Devices Description No Information Available Encounters Description No Information Available Assessments Date Code Description Provider 04/17/2019 R10.84 Generalized abdominal pain Elham De La Rosa PA-C 04/17/2019 R13.10 Dysphagia, unspecified Elham De La Rosa PA-C 04/17/2019 D64.9 Anemia, unspecified Elham De La Rosa PA-C 04/17/2019 Z86.010 Personal history of colonic polyps Elham De La Rosa PA-C Plan of Treatment Future Appointment(s):05/26/2019 12:45 pm - Hai En[facility] MD at [facility]04/17/2019 - CARLOS CoeCR10.84 Generalized abdominal painR13.10 Dysphagia, kniohseagsuU36.9 Anemia, ftdnjewuwuzI42.010 Personal history of colonic polypsNew Medication:Peg 3350/ Electrolytes 240 gm - use as directed Functional Status Description No Information Available Mental Status Description No Information Available Referrals Description No Information Available
--- NOTE | 2019-05-29 13:36 | ED ---
Abdominal Pain/Male - HPI Summary HPI Summary: Pt is a 58 y/o M presenting to the ED for a chief complaint of LLQ abdominal pain. Pt had a colonoscopy on 05/27/19 that showed diverticulitis. Pt admits nausea and diarrhea one day ago. Pt denies fever, chills, or vomiting. Pt has a PMHx of low kidney function and HTN. Pt has a PSHx of left knee replacement 9 weeks ago. Pt is a former smoker. Pt denies alcohol use or drug use. Allergies noted. Medications reviewed. - History of Current Complaint Chief Complaint: EDAbdPain Stated Complaint: SENT BY KAMRYN GUTIÉRREZ PER PT Time Seen by Provider: 05/29/19 12:40 Hx Obtained From: Patient Onset/Duration: Sudden Onset, Still Present Timing: Constant Severity Initially: Severe Severity Currently: Severe Pain Intensity: 10 Pain Scale Used: 0-10 Numeric Location: Discrete At: LLQ Radiates: No Alleviating Factor(s): Nothing Associated Signs And Symptoms: Positive: Nausea, Diarrhea, Other - Negative chills. Negative: Fever, Vomiting - Allergies/Home Medications Allergies/Adverse Reactions: Allergies Allergy/AdvReac Type Severity Reaction Status Date / Time No Known Allergies Allergy Verified 05/29/19 12:45 Home Medications: Home Medications Oxycontin 10 mg (*) 1 tab Q6HR PRN 05/30/19 [History Confirmed 05/30/19] PMH/Surg Hx/FS Hx/Imm Hx Previously Healthy: Yes Endocrine/Hematology History: Denies: Hx Diabetes Cardiovascular History: Reports: Hx Hypercholesterolemia, Hx Hypertension Denies: Hx Pacemaker/ICD Respiratory History: Reports: Hx Sleep Apnea Denies: Hx Asthma, Hx Chronic Obstructive Pulmonary Disease (COPD) History: Denies: Hx Renal Disease Musculoskeletal History: Reports: Hx Arthritis Sensory History: Reports: Hx Cataracts Denies: Hx Contacts or Glasses, Hx Hearing Aid Opthamlomology History: Reports: Hx Cataracts Denies: Hx Contacts or Glasses Neurological History: Denies: Hx Dementia, Hx Seizures Psychiatric History: Denies: Hx Panic Disorder - Cancer History Hx Chemotherapy: No - Surgical History Surgical History: Yes Surgery Procedure, Year, and Place: LEFT KNEE MENISCUS/ARTHROSCOPIC SCRAPPING SURGERY;. RIGHT and left KNEE REPLACEMENT;. BILAT CARPAL TUNNEL;. CATARACTS; . TONSILLECTOMY; Hx Anesthesia Reactions: No Infectious Disease History: No Infectious Disease History: Denies: Traveled Outside the [place] in Last 30 Days - Family History Known Family History: Negative: Hypertension, Diabetes - Social History Alcohol Use: Occasionally Hx Substance Use: Yes Substance Use Type: Reports: Marijuana Hx Tobacco Use: Yes Smoking Status (MU): Former Smoker Review of Systems Negative: Fever, Chills Positive: Abdominal Pain - LLQ, Diarrhea, Nausea. Negative: Vomiting All Other Systems Reviewed And Are Negative: Yes Physical Exam - Summary Physical Exam Summary: Constitutional: Well-developed, Well-nourished, Alert. (-) Distressed Skin: Warm, Dry HENT: Normocephalic; Atraumatic Eyes: Conjunctiva normal Neck: Musculoskeletal ROM normal neck. (-) JVD, (-) Stridor, (-) Tracheal deviation Cardio: Rhythm regular, rate normal, Heart sounds normal; Intact distal pulses; Radial pulses are 2+ and symmetric. (-) Murmur Pulmonary/Chest wall: Effort normal. (-) Respiratory distress, (-) Wheezes, (-) Rales Abd: Soft, (-) Distension, (-) Guarding. Left abdominal, worse in LLQ, no rebound tenderness, pain with laughing Musculoskeletal: (-) Edema Lymph: (-) Cervical adenopathy Neuro: Alert, Oriented x3 Psych: Mood and affect Normal Triage Information Reviewed: Yes Vital Signs On Initial Exam: Initial Vitals Temp Pulse Resp BP Pulse Ox 100.6 F 107 20 169/104 98 05/29/19 12:41 05/29/19 12:41 05/29/19 12:41 05/29/19 12:41 05/29/19 12:41 Vital Signs Reviewed: Yes Procedures - Sedation Patient Received Moderate/Deep Sedation with Procedure: No Diagnostics - Vital Signs Vital Signs Temp Pulse Resp BP Pulse Ox 05/29/19 13:26 94 05/29/19 13:19 16 05/29/19 12:41 100.6 F 107 20 169/104 98 - Laboratory Lab Results: Lab Results 05/29/19 Range/Units 13:03 WBC 14.4 H (3.5-10.8) 10^3/uL RBC 4.95 (4.18-5.48) 10^6 /uL Hgb 14.2 (14.0-18.0) g/dL Hct 42 (42-52) % MCV 85 (80-94) fL MCH 29 (27-31) pg MCHC 34 (31-36) g/dL RDW 15 (10-15) % Plt Count 321 (150-450) 10^3/uL MPV 7.9 (7.4-10.4) fL Neut % (Auto) 81.0 % Lymph % (Auto) 9.1 % [place] % (Auto) 9.0 % Eos % (Auto) 0.5 % Baso % (Auto) 0.4 % Absolute Neuts (auto) 11.7 H (1.5-7.7) 10^3/ul Absolute Lymphs (auto) 1.3 (1.0-4.8) 10^3/ul Absolute Monos (auto) 1.3 H (0-0.8) 10^3/ul Absolute Eos (auto) 0.1 (0-0.6) 10^3/ul Absolute Basos (auto) 0.1 (0-0.2) 10^3/ul Absolute Nucleated RBC 0.0 10^3/ul Nucleated RBC % 0.0 Result Diagrams: 06/01/19 05:28 06/01/19 05:28 Lab Statement: Any lab studies that have been ordered have been reviewed, and results considered in the medical decision making process. - Radiology Chest X-ray Radiology Interpretation Completed By: Radiologist Summary of Radiographic Findings: Chest X-ray IMPRESSION: NO ACTIVE CARDIOPULMONARY DISEASE IS NOTED. Reviewed by ED physician. Abdominal Pain Male Course/Dx - Course Course Of Treatment: Patient is here with him. Diverticulitis seen on CT scan as an outpatient. Patient had a sepsis workup which was negative outside of leukocytosis. Patient was given Cipro floxacillin Flagyl per GI. Patient was given a liter of fluid. Patient was admitted to GI - Diagnoses Provider Diagnoses: Diverticulitis Discharge ED - Sign-Out/Discharge Documenting (check all that apply): Patient Departure - Admit - Discharge Plan Condition: Stable Disposition: ADMITTED TO [facility] - Billing Disposition and Condition Condition: STABLE Disposition: Admitted to [facility] - Attestation Statements Document Initiated by Scribe: Yes Documenting Scribe: Risa Ruelas Provider For Whom Scribe is Documenting (Include Credential): Skip Dale MD Scribe Attestation: Risa Avelar scribed for Skip Dale MD on 06/12/19 at 2140. Scribe Documentation Reviewed: Yes Provider Attestation: The documentation as recorded by the scribe, Risa Ruelas accurately reflects the service I personally performed and the decisions made by me, Skip Dale MD Status of Scribe Document: Viewed Consult Consult: At 14:02, Dr. Enriquez agrees to admit the pt at [facility]. Dr. Samuel will see later.
[2019-05-29 13:45] LABS: Albumin 4.6 g/dL (3.2-5.2); Albumin/Globulin Ratio 1.4 (1-3); Calcium 9.8 mg/dL (8.6-10.3); EGFR African American 85.3 (>60); EGFR Non-African American 70.5 (>60); Globulin 3.3 g/dL (2-4); Potassium 3.8 mmol/L (3.5-5.0); Total Bilirubin 1.4 mg/dL (0.2-1.0); Total Protein 7.9 g/dL (6.4-8.9)
[2019-05-29] MEDS ORDERED: Ondansetron INJ* 2 MG/ML VIAL IV PRN (13:58)
[2019-05-29] MEDS ORDERED: Morphine INJ* 2 MG/ML 1 ML SYRINGE (TWO MG - NEW SYRINGE VERSION) IV PRN (13:58)
[2019-05-29] MEDS ORDERED: HYDROmorphone INJ* 0.5 MG/0.5 ML SYRINGE IV ONE (14:11)
[2019-05-29 14:40] LABS: Urine Appearance Clear; Urine Bacteria Absent (Absent); Urine Bilirubin Negative (Negative); Urine Blood 3+ (Negative); Urine Color Yellow; Urine Glucose Negative (Negative); Urine Ketones Negative (Negative); Urine Nitrite Negative (Negative); Urine Protein 1+(30 mg/dL) (Negative); Urine Red Blood Cell 3+(>10/hpf) (Absent); Urine Specific Gravity 1.016 (1.010-1.030); Urine Squamous Epithelial Cell Present (Absent); Urine Urobilinogen Negative (Negative); Urine White Blood Cell Trace(0-5/hpf) (Absent)
[2019-05-29] MEDS ORDERED: Ciprofloxacin 400MG IVPREMIX(* 400 MG/200 ML BAG IVPB SCH (15:00)
[2019-05-29] MEDS ORDERED: Morphine INJ* 2 MG/ML 1 ML SYRINGE (TWO MG - NEW SYRINGE VERSION) IV ONE (15:25)
[2019-05-29] MEDS: NS 0.9% 1000 ML** 1,000 ML IV SCH ×2 (15:32→22:30)
--- NOTE | 2019-05-29 16:11 | CONSULT ---
Consult Consult: Consultation: General Surgery Dr Samuel Diagnosis: Diverticulitis Chief Complaint: LLQ Abdominal pain HPI: 58 yo male reports having a colonoscopy sunday(05/26) by Dr Enriquez, found to have diverticulosis, and has been having progressively worsening abdominal pain since that night. He was being seen at his Urologist today and was referred to the ED for his worsening LLQ pain. WBC in ED 14.4 PMH: Diverticulosis, arthritis, HTN, BPH, Renal Cysts, Sleep Apnea PSH: B/L TKA Left in March, Right 7 years ago, T&A, CTR B/L, Cataracts, SOCIAL: TOB denies ETOH denies DRUGS denies FAMILY HISTORY: non contributory ALLERGIES: NKDA ROS: Per HPI, remaining 14 point ROS negative PHYSICAL EXAM: Well developed, well nourished 58 yo male looks his appropriate age. comfortable in hospital bed with intermittent bouts of wincing pain from his LLQ VS: Vital Signs Temp Pulse Resp BP Pulse Ox 99.6 F 100 20 177/97 96 05/29/19 14:38 05/29/19 14:38 05/29/19 15:14 05/29/19 14:38 05/29/19 14:38 Laboratory Last Values Abnormal Lab Results 05/29/19 05/29/19 05/29/19 13:03 13:03 13:03 WBC 14.4 H RBC 4.95 Hgb 14.2 Hct 42 MCV 85 MCH 29 MCHC 34 RDW 15 Plt Count 321 MPV 7.9 Neut % (Auto) 81.0 Lymph % (Auto) 9.1 [place] % (Auto) 9.0 Eos % (Auto) 0.5 Baso % (Auto) 0.4 Absolute Neuts (auto) 11.7 H Absolute Lymphs (auto) 1.3 Absolute Monos (auto) 1.3 H Absolute Eos (auto) 0.1 Absolute Basos (auto) 0.1 Absolute Nucleated RBC 0.0 Nucleated RBC % 0.0 APTT 36.4 Sodium 137 Potassium 3.8 Chloride 103 Carbon Dioxide 26 Anion Gap 8 BUN 16 Creatinine 1.07 Est GFR ( Amer) 85.3 Est GFR (Non-Af Amer) 70.5 BUN/Creatinine Ratio 15.0 Glucose 95 Lactic Acid Calcium 9.8 Total Bilirubin 1.40 H AST 10 L ALT 10 Alkaline Phosphatase 89 Total Protein 7.9 Albumin 4.6 Globulin 3.3 Albumin/Globulin Ratio 1.4 Urine Color Urine Appearance Urine pH Ur Specific [place] Urine Protein Urine Ketones Urine Blood Urine Nitrate Urine Bilirubin Urine Urobilinogen Ur Leukocyte Esterase Urine WBC (Auto) Urine RBC (Auto) Ur Squamous Epith Cells Urine Bacteria Urine Glucose HEENT: NCAT, EOMI, Trachea midline CHEST: CTA B/L CVS: RRR ABD: Soft, ND, Exquisitely tender to palpation LLQ, M/S: B/L LE show well healed midline scars c/w TKA, FROM B/L UE's, B/L LE's NEURO: grossly normal Psych: AxO x 3 LABS: as above CT RESULTS: Patient Name: MARIAJOSE MALONE Medical Record#: [id number] Ordering Physician: Hai Enriquez MD Acct.#: [id number] : 1960 Age: 58 Sex: M Location: IMAGING Exam Date: 05/29/19 ADM Status: REG REF Order Information: CT ABD/PEL W/O Accession Number: [id number] CPT: 12951 Indication: Left lower quadrant pain status post colonoscopy. CT of the abdomen and pelvis was performed without oral or IV contrast administration. Coronal and sagittal reconstructed images were obtained. Wall thickening of the proximal sigmoid colon is noted. Diverticulosis is noted. Pericolonic infiltration of fat is noted. Findings are consistent with diverticulitis. No definite abscess is noted at the present time. There may be tiny localized microperforations noted with small foci of air which appears extraluminal. Lung bases demonstrate no pleural fluid, nodules or masses. Heart is of normal size without pericardial effusion. Liver is normal in size. No focal lesions or intrahepatic ductal dilatation is noted. The gallbladder demonstrates no calcified gallstones. No pericholecystic fluid or wall thickening is noted. The pancreas demonstrates no mass or pancreatic duct dilatation. Spleen is normal in size. No adrenal lesions are noted. The kidneys demonstrate no hydronephrosis. Cortical cyst is noted in the left kidney with hyperdense cyst measuring up to 1.5 cm. No retroperitoneal lymphadenopathy is noted. No dilated loops of bowel are noted. CT of the pelvis demonstrates prostate and urinary bladder to be unremarkable. The remainder of the small bowel is unremarkable. IMPRESSION: Wall thickening of the sigmoid colon with pericolonic infiltration of fat and phlegmonous change with suggestion of tiny microperforation. This is consistent with diverticulitis. No evidence of peridiverticular abscess is noted. No other masses or fluid collections are noted. Colonoscopy/EGD Findings: 05/26/19 PROCEDURES: EGD and colonoscopy. IMPRESSION: 1. Complete colonoscopy into the cecum with snare polypectomy. 2. Single colon polyp, status post snare polypectomy. 3. Diverticulosis. 4. He should have a repeat colonoscopy in 5 years from now if the polyp is adenomatous, 10 years if hyperplastic. 5. Complete upper endoscopy into the distal duodenum with biopsies. 6. Biopsies for eosinophilic esophagitis. 7. I will follow up on all the biopsies and report back to the patient at that time. ASSESSMENT: 58 yo male with acute diverticulitis, WBC 14.4 low grade temp 99.6 PLAN: Observation, IV ABX, currently Cipro & Flagyl, IV fluids, NPO. Will D/W Dr Samuel
[2019-05-29 17:07] LABS: ABS Basophils 0.1 10^3/ul (0-0.2); ABS Lymphocytes 1.4 10^3/ul (1.0-4.8); ABS Monocytes 1.4 10^3/ul (0-0.8); ABS Neutrophils 10.4 10^3/ul (1.5-7.7); Eosinophil % 0.2 %; Hematocrit 39 % (42-52); Lymphocyte % 10.5 %; Mean Corpuscular HGB Conc 34 g/dL (31-36); Mean Corpuscular Hemoglobin 29 pg (27-31); Mean Corpuscular Volume 85 fL (80-94); Mean Platelet Volume 7.9 fL (7.4-10.4); Platelet Count 254 10^3/uL (150-450); Red Blood Count 4.56 10^6 /uL (4.18-5.48); Red Cell Distribution Width 16 % (10-15); White Blood Count 13.3 10^3/uL (3.5-10.8)
[2019-05-29 17:21] LABS: BUN/Creatinine Ratio 12.5 (8-20); Calcium 9.1 mg/dL (8.6-10.3); EGFR African American 80.9 (>60); EGFR Non-African American 66.9 (>60); Potassium 4.3 mmol/L (3.5-5.0)
[2019-05-29] MEDS: HYDROmorphone INJ1* 1 MG/ML SYRINGE IV SLOW PU PRN ×2 (17:55→20:14)
[2019-05-29] MEDS ORDERED: NS 0.9% 500 ML* 500 ML IV ONE (19:44)
[2019-05-29] MEDS ORDERED: Acetaminophen TAB* 325 MG PO PRN (19:48)
[2019-05-29] MEDS: metroNIDAZOLE IV 500 MG/100ML* 500 MG/100 ML BAG IVPB SCH (20:13)
--- NOTE | 2019-05-29 20:19 | PN ---
Progress Note - Progress Note Date of Service: 05/29/19 Note: patient follow up: pt asleep and easily awakens; c/o intense LLQ pain; thinks it is a bit better than earlier; no n/v; at rest, no pain, but pain with movt just spiked temp to 102....will give tylenol and NS bolus; pt asking for small amt of lucita romeo pt with h/o HTN in past...was on lisinopril 40mg, HCTZ 25 and spironolactone 50 mg; stopped in past +bs, soft, mild-moderate tenderness all over, very painful to light touch on L; vol guarding, no rebound IV abx (cipro, flagyl), IVF, pain control, surgery following GI to follow Hai Enriquez MD
[2019-05-29] MEDS ORDERED: Apixaban* 2.5 MG TAB PO SCH (21:00)
--- NOTE | 2019-05-29 21:40 | HP ---
CC: Dr. John Castillo; Dr. Enriquez * HISTORY AND PHYSICAL: DATE OF ADMISSION: 05/29/19 ATTENDING PHYSICIAN: Dr. Enriquez. REASON FOR ADMISSION: Complicated diverticulitis. HISTORY OF PRESENT ILLNESS: This is a pleasant 58-year-old male with a past medical history of hypertension, sleep apnea, BPH, renal cysts, diverticulosis, who contacted our office after having discomfort after colonoscopy by Dr. Enriquez on 05/26/19. He states initially when he got home he felt pretty good and then the next day he developed increasing abdominal pain, specifically in the left lower quadrant. Pain became quite intense with nausea and dry emesis. It was associated with a subjective fever, chills and rigors. The pain was intense up to 10/10 at times, never fully going away. His home pain medication did help slightly. He was sent for a CT scan of the abdomen and pelvis on 05/29/19, which revealed wall thickening of the sigmoid colon with pericolonic infiltration of the fat suggestive of tiny microperforation of diverticulitis. No evidence of peridiverticular abscess is noted. He has no history of diverticulitis in the past. He has not had any recent antibiotics. Denies any black or blood in the stool. He states he is passing flatus. He did have a bowel movement this morning that was loose. Denies melena or hematochezia. Denies any weight loss or weight gain. No skin rashes or lesions. He does not have any allergies to medication. The remainder of the 14 - point review of systems is grossly negative. PAST MEDICAL HISTORY: Hypertension, BPH, arthritis, diverticulosis. PAST SURGICAL HISTORY: Knee replacement. HOME MEDICATIONS: Include: 1. Zofran 4 mg q.6 p.r.n. nausea. 2. Omeprazole 20 mg p.o. daily. 3. Eliquis 2.5 mg b.i.d. 4. Oxycodone 5 mg q.4 hours p.r.n. pain. 5. Alfuzosin HCL ER 10 mg every morning. 6. Fenofibrate 48 mg every morning. 7. Simvastatin 20 mg every morning. ALLERGIES: No known drug allergies. FAMILY HISTORY: Liver cancer. SOCIAL HISTORY: Former smoker. Social alcohol use. REVIEW OF SYSTEMS: The remainder of the 14-point review of systems is grossly negative. PHYSICAL EXAMINATION GENERAL: Alert and oriented x3. No acute distress. VITAL SIGNS: Blood pressure is 177/97, pulse 100, respiratory rate18, he is 96 % on room air, temperature 99.6. HEENT: Atraumatic, normocephalic. Pupils equal, round, and reactive to light. Extraocular movements are intact. NECK: Supple. No JVD. RESPIRATORY: Clear to auscultation bilaterally. CARDIOVASCULAR: Tachycardic. S1, S2. ABDOMEN: Soft. Tenderness to palpation in the left lower quadrant and slightly in the left upper quadrant. Slight rebound tenderness. Bowel sounds positive. EXTREMITIES: No clubbing, no cyanosis, no edema. SKIN: Without lesions. NEUROLOGIC: Nonfocal. PSYCH: Appropriate mood and affect. DIAGNOSTIC STUDIES/LAB DATA: WBC count 13.3, hemoglobin 13, platelet count 254. Sodium 137, potassium 3.8, chloride 103, bicarb 26, BUN is 16, creatinine 1.07. Total bilirubin 1.40, AST is 10, ALT is 10, alkaline phosphatase 89. Glucose is 95. He had a CT of the abdomen and pelvis on 05/29/19 which revealed wall thickening of the sigmoid colon with pericolonic infiltration of fat and phlegmonous change suggestive of tiny microperforation and diverticulitis. ASSESSMENT AND PLAN: This is a 58-year-old male with complicated diverticulitis. 1. Complicated diverticulitis. We will admit to [address] , start IV antibiotics. He does take oxycodone at home. We will increase his pain medication to Dilaudid for severe pain. We will start Cipro and Flagyl IV. Serial abdominal exams and will have Dr. Samuel from Surgery consult in case he is needed. At this point, hopeful that antibiotics and IV fluids will turn this around. 2. Gastroesophageal reflux disease. We will continue PPI. 3. Benign prostatic hypertrophy. Continue alfuzosin. 4. Nausea. Zofran p.r.n. 5. Diet. NPO for now. 6. The patient is a full code. [id number]/CPS #: [id number] MTDD
[2019-05-29] MEDS: HYDROmorphone INJ1* 1 MG/ML SYRINGE IV PRN (22:30)
[2019-05-30] MEDS: HYDROmorphone INJ1* 1 MG/ML SYRINGE IV PRN ×8 (01:42→22:18)
[2019-05-30] MEDS: Ciprofloxacin 400MG IVPREMIX(* 400 MG/200 ML BAG IVPB SCH ×2 (01:43→14:53)
[2019-05-30] MEDS: metroNIDAZOLE IV 500 MG/100ML* 500 MG/100 ML BAG IVPB SCH ×3 (04:07→22:38)
[2019-05-30] MEDS: ALFUZOSIN 10 MG PO SCH (09:21)
[2019-05-30] MEDS: Pantoprazole TAB * 40 MG TAB PO SCH (09:21)
[2019-05-30 10:16] LABS: ABS Eosinophils 0.1 10^3/ul (0-0.6); ABS Lymphocytes 1.4 10^3/ul (1.0-4.8); ABS Monocytes 1.2 10^3/ul (0-0.8); ABS Neutrophils 9.1 10^3/ul (1.5-7.7); Eosinophil % 0.6 %; Hematocrit 37 % (42-52); Hemoglobin 12.1 g/dL (14.0-18.0); Lymphocyte % 11.5 %; Mean Corpuscular HGB Conc 32 g/dL (31-36); Mean Corpuscular Hemoglobin 28 pg (27-31); Mean Corpuscular Volume 86 fL (80-94); Mean Platelet Volume 7.8 fL (7.4-10.4); Platelet Count 254 10^3/uL (150-450); Red Blood Count 4.36 10^6 /uL (4.18-5.48); Red Cell Distribution Width 15 % (10-15); White Blood Count 11.7 10^3/uL (3.5-10.8)
[2019-05-30 10:35] LABS: Albumin 3.8 g/dL (3.2-5.2); Albumin/Globulin Ratio 1.4 (1-3); BUN/Creatinine Ratio 13.2 (8-20); EGFR African American 79.3 (>60); EGFR Non-African American 65.5 (>60); Globulin 2.7 g/dL (2-4); Potassium 3.8 mmol/L (3.5-5.0); Total Bilirubin 1.7 mg/dL (0.2-1.0); Total Protein 6.5 g/dL (6.4-8.9)
--- NOTE | 2019-05-30 12:07 | PN ---
Progress Note - Progress Note Date of Service: 05/30/19 SOAP: Subjective: Pt reports feeling better than when i saw him yesterday afternoon. C/O dry mouth, thirsty. Has ambulated, some abdominal discomfort after walking. [] Objective: Intake & Output 05/29/19 05/30/19 05/30/19 18:59 06:59 18:59 Intake Total 1100 2423 Balance 1100 2423 Weight 251 lb 11.2 oz Intake: IV Fluids 1100 1798 Normal Saline 1798 IVPB 625 Flagyl 125 Normal Saline 500 Oral 0 Other: # Bowel Movements 0 # Voids 3 Vital Signs Temp Pulse Resp BP Pulse Ox 99.3 F 76 18 139/77 95 05/30/19 07:36 05/30/19 07:36 05/30/19 11:22 05/30/19 07:36 05/30/19 07:36 Laboratory Results - last 24 hr 05/29/19 05/29/19 05/29/19 13:03 13:03 13:03 WBC 14.4 H RBC 4.95 Hgb 14.2 Hct 42 MCV 85 MCH 29 MCHC 34 RDW 15 Plt Count 321 MPV 7.9 Neut % (Auto) 81.0 Lymph % (Auto) 9.1 [place] % (Auto) 9.0 Eos % (Auto) 0.5 Baso % (Auto) 0.4 Absolute Neuts (auto) 11.7 H Absolute Lymphs (auto) 1.3 Absolute Monos (auto) 1.3 H Absolute Eos (auto) 0.1 Absolute Basos (auto) 0.1 Absolute Nucleated RBC 0.0 Nucleated RBC % 0.0 APTT 36.4 Sodium 137 Potassium 3.8 Chloride 103 Carbon Dioxide 26 Anion Gap 8 BUN 16 Creatinine 1.07 Est GFR ( Amer) 85.3 Est GFR (Non-Af Amer) 70.5 BUN/Creatinine Ratio 15.0 Glucose 95 Lactic Acid Calcium 9.8 Total Bilirubin 1.40 H AST 10 L ALT 10 Alkaline Phosphatase 89 Total Protein 7.9 Albumin 4.6 Globulin 3.3 Albumin/Globulin Ratio 1.4 Urine Color Urine Appearance Urine pH Ur Specific [place] Urine Protein Urine Ketones Urine Blood Urine Nitrate Urine Bilirubin Urine Urobilinogen Ur Leukocyte Esterase Urine WBC (Auto) Urine RBC (Auto) Ur Squamous Epith Cells Urine Bacteria Urine Glucose 05/29/19 05/29/19 05/29/19 13:03 14:19 16:53 WBC RBC Hgb Hct MCV MCH MCHC RDW Plt Count MPV Neut % (Auto) Lymph % (Auto) [place] % (Auto) Eos % (Auto) Baso % (Auto) Absolute Neuts (auto) Absolute Lymphs (auto) Absolute Monos (auto) Absolute Eos (auto) Absolute Basos (auto) Absolute Nucleated RBC Nucleated RBC % APTT Sodium Potassium Chloride Carbon Dioxide Anion Gap BUN Creatinine Est GFR ( Amer) Est GFR (Non-Af Amer) BUN/Creatinine Ratio Glucose Lactic Acid 1.6 1.0 Calcium Total Bilirubin AST ALT Alkaline Phosphatase Total Protein Albumin Globulin Albumin/Globulin Ratio Urine Color Yellow Urine Appearance Clear Urine pH 6.0 Ur Specific [place] 1.016 Urine Protein 1+(30 mg/dl) A Urine Ketones Negative Urine Blood 3+ A Urine Nitrate Negative Urine Bilirubin Negative Urine Urobilinogen Negative Ur Leukocyte Esterase Negative Urine WBC (Auto) Trace(0-5/hpf) Urine RBC (Auto) 3+(>10/hpf) A Ur Squamous Epith Cells Present A Urine Bacteria Absent Urine Glucose Negative 05/29/19 05/29/19 05/30/19 16:53 16:53 09:50 WBC 13.3 H 11.7 H RBC 4.56 4.36 Hgb 13.0 L 12.1 L Hct 39 L 37 L MCV 85 86 MCH 29 28 MCHC 34 32 RDW 16 H 15 Plt Count 254 254 MPV 7.9 7.8 Neut % (Auto) 78.3 77.8 Lymph % (Auto) 10.5 11.5 [place] % (Auto) 10.3 9.9 Eos % (Auto) 0.2 0.6 Baso % (Auto) 0.7 0.2 Absolute Neuts (auto) 10.4 H 9.1 H Absolute Lymphs (auto) 1.4 1.4 Absolute Monos (auto) 1.4 H 1.2 H Absolute Eos (auto) 0.0 0.1 Absolute Basos (auto) 0.1 0.0 Absolute Nucleated RBC 0.0 0.0 Nucleated RBC % 0.0 0.0 APTT Sodium 137 138 Potassium 4.3 3.8 Chloride 105 106 106Carbon Dioxide 28 25 Anion Gap 4 7 BUN 14 15 Creatinine 1.12 1.14 Est GFR ( Amer) 80.9 79.3 Est GFR (Non-Af Amer) 66.9 55.5 BUN/Creatinine Ratio 12.5 13.2 Glucose 90 101 Lactic Acid Calcium 9.1 9.0 Total Bilirubin AST ALT Alkaline Phosphatase Total Protein Albumin Globulin Albumin/Globulin Ratio Urine Color Urine Appearance Urine pH Ur Specific [place] Urine Protein Urine Ketones Urine Blood Urine Nitrate Urine Bilirubin Urine Urobilinogen Ur Leukocyte Esterase Urine WBC (Auto) Urine RBC (Auto) Ur Squamous Epith Cells Urine Bacteria Urine Glucose SPIKE OF TEMP TO 102.2 OVERNIGHT, ^ BP's [] PEX: Chest: CTA B/L CVS: RRR ABD: soft, ^ Tenderness to palp LLQ & Periumbilical EXT: calves soft, non tender Assessment: 58 year old male with acute diverticulitis, WBC 11.7 (13.3), improved physical exam [] Plan: Continue IVF, IV ABX, NPO, daily labs, conservative non operative management. OOB to chair, ambulate ad melony. []
--- NOTE | 2019-05-30 15:16 | PN ---
Progress Note - Progress Note Date of Service: 05/30/19 Note: Subjective Patient is a 58 year old male who was admitted yesterday for worsening abdominal pain since colonoscopy performed on Saturday 05/26. After receiving antibiotics and pain medication, his pain as decreased significantly since yesterday and he is "feeling much better". He is taking pain medication once every 2 hours. He is in no pain at the moment and says laying down alleviates his pain and moving/walking makes it worse initially, but in time it gets better. He is ambulating. He would like to be able to have liquids to help his dry mouth. . Objective Vital Signs Temp 98.6 F 05/30/19 11:49 Pulse 74 05/30/19 11:49 Resp 16 05/30/19 14:52 BP 138/69 05/30/19 11:49 Pulse Ox 97 05/30/19 11:49 Intake & Output 05/29/19 05/30/19 05/30/19 18:59 06:59 18:59 Intake Total 1100 2423 Balance 1100 2423 Weight 251 lb 11.2 oz Intake: IV Fluids 1100 1798 Normal Saline 1798 IVPB 625 Flagyl 125 Normal Saline 500 Oral 0 Other: # Bowel Movements 0 # Voids 3 General: Laying in the bed in NAD; he is pleasant and cooperative CV: RRR Lungs: CTA Extremities: No lower extremity edema Abdomen: Soft and non distended. There is referred pain to the LLQ and umbilicus with palpation to the RLQ. Mild LLQ tenderness. Laboratory Tests 05/29/19 05/29/19 05/30/19 13:03 16:53 09:50 WBC 14.4 H 13.3 H 11.7 H Assessment/Plan Diverticulitis with microperforation. Patient has been improving since admission with antibiotics and pain management. His pain has significantly decreased since yesterday and his WBC has decreased to 11.7. He is able to ambulate without difficulty. Continue pain management and antibiotics and monitor WBC. Patient given Lovenox as per provider for anticoagulation. Consider clear liquids. Recheck WBC tomorrow.
--- NOTE | 2019-05-30 21:16 | PN ---
Progress Note - Progress Note Date of Service: 05/30/19 Note: GI follow up note Patient seen and examined. Feeling much better today. Pain still there. Has been 5+ hours without pain medicine at times. No black or blood. Passing flatus. Had fever overnight but not today. No chills or rigors. at bedside. Ambulating. VS: 154/96, P 78, R-18, T-98.7, 96% RA Gen: alert and oriented x3 HEENT: AT/NC, perrla, eomi, no jvp CVS: RRR s1s2 Resp: cta b/l Abd: soft, mild ttp LLQ, BS+ Ext: No c/c/e Lab: wbc 14.4-> 11.7 Impression Complicated diverticulitis- slowly improving Plan: Still with elevated WBC count, febrile overnight Continue IV Abx. Plan 36-48 hours more Likely liquids 05/31/19 consider transition to PO antibiotics in next few days Carlos Diaz DO 05/30/191999
[2019-05-30] MEDS: NS 0.9% 1000 ML** 1,000 ML IV SCH (22:18)
[2019-05-31] MEDS: HYDROmorphone INJ1* 1 MG/ML SYRINGE IV PRN ×2 (00:12→22:33)
[2019-05-31] MEDS: Ciprofloxacin 400MG IVPREMIX(* 400 MG/200 ML BAG IVPB SCH ×2 (02:08→15:29)
[2019-05-31] MEDS: metroNIDAZOLE IV 500 MG/100ML* 500 MG/100 ML BAG IVPB SCH ×3 (05:59→20:51)
[2019-05-31] MEDS: Pantoprazole TAB * 40 MG TAB PO SCH (08:23)
[2019-05-31] MEDS: ALFUZOSIN 10 MG PO SCH (08:23)
--- NOTE | 2019-05-31 11:38 | PN ---
Progress Note - Progress Note Date of Service: 05/31/19 Note: Surgery Progress Note S: Patient is feeling much better today. He says his pain has improved significantly. Although his diet has been NPO patient says he has been taking liquids (water, lucita romeo) for the past two days. He has been afebrile. O: Vital Signs - 24 hr 05/30/19 05/30/19 05/30/19 11:49 14:52 15:22 Temperature 98.6 F 98.7 F Pulse Rate 74 78 Respiratory 18 16 18 Rate Blood Pressure 138/69 154/96 (mmHg) O2 Sat by Pulse 97 96 Oximetry 05/30/19 05/30/19 05/30/19 15:52 16:54 17:54 Temperature Pulse Rate Respiratory 18 16 18 Rate Blood Pressure (mmHg) O2 Sat by Pulse Oximetry 05/30/19 05/30/19 05/30/19 18:56 19:46 20:10 Temperature 99.0 F Pulse Rate 72 Respiratory 18 20 18 Rate Blood Pressure 159/76 (mmHg) O2 Sat by Pulse 97 Oximetry 05/30/19 05/30/19 05/30/19 22:18 22:19 23:31 Temperature 97.0 F Pulse Rate 70 Respiratory 16 16 20 Rate Blood Pressure 134/88 (mmHg) O2 Sat by Pulse 96 Oximetry 05/30/19 05/31/19 05/31/19 23:51 00:12 00:17 Temperature Pulse Rate Respiratory 16 16 18 Rate Blood Pressure (mmHg) O2 Sat by Pulse Oximetry 05/31/19 05/31/19 05/31/19 01:00 04:00 07:15 Temperature 98.0 F 97.6 F Pulse Rate 61 65 Respiratory 16 20 16 Rate Blood Pressure 117/74 142/100 (mmHg) O2 Sat by Pulse 98 100 Oximetry 05/31/19 05/31/19 08:00 11:15 Temperature 97.2 F Pulse Rate 65 Respiratory 18 16 Rate Blood Pressure 144/89 (mmHg) O2 Sat by Pulse 100 100 Oximetry Intake & Output 05/30/19 05/31/19 05/31/19 22:59 06:59 14:59 Intake Total 960 1122 Balance 960 1122 Intake: IV Fluids 322 NS 322 IVPB 320 Cipro 210 Flagyl 110 Oral 960 480 Other: # Bowel Movements 0 # Voids 0 Physical exam: Abdomen- soft, non distended, tender focally in LLQ with deep palpation A/P: 58 M with first time diverticulitis with small microperforation. - Patient is doing well. He remains afebrile and his pain continues to improve. No labs obtained today but they were downtrending yesterday. I have reviewed his imaging and discussed with the patient that his clinical course is improving on IV antibiotics and that he would eventually go home with a course of oral antibiotics. I do not anticipate he will need surgery on this admission and do not think he needs to consider an elective lap sigmoidectomy given that this is his first episode from which he appears to be recovering nicely. He should continue CLD and advance as tolerated. - Surgery will sign off, please feel free to call back with any further questions.
[2019-05-31] MEDS: NS 0.9% 1000 ML** 1,000 ML IV SCH (13:02)
--- NOTE | 2019-05-31 15:37 | PN ---
Progress Note - Progress Note Date of Service: 05/31/19 Note: GI Follow up note Patient seen and examined. Pain much better, only needed pain medication in am. Tolerating sips of liquids. No large bm. Still cramps at times. Afebrile. VS: 144/89,P-65, R-16, T-97.2 Gen: alert and oriented x3 HEENT: AT/NC, perrla, eomi CVS": RRR s1s2 Resp: cta b/l Abd: soft, mild TTP llq, BS+ no guarding or rebound Ext: no c/c/e Impression Complicated diverticulitis improving Rec: Advance to full liquids today Potentially switch to PO abx 06/01 Anticipate D/C 06/01- with 10 days of PO Cipro and Flagyl Low residue diet at d/c. Carlos Diaz DO 05/31/19 [id number]
[2019-06-01] MEDS: Ciprofloxacin 400MG IVPREMIX(* 400 MG/200 ML BAG IVPB SCH (01:59)
[2019-06-01] MEDS: NS 0.9% 1000 ML** 1,000 ML IV SCH (02:09)
[2019-06-01] MEDS: metroNIDAZOLE IV 500 MG/100ML* 500 MG/100 ML BAG IVPB SCH (05:45)
[2019-06-01 05:49] LABS: ABS Eosinophils 0.2 10^3/ul (0-0.6); ABS Lymphocytes 1.2 10^3/ul (1.0-4.8); ABS Monocytes 0.6 10^3/ul (0-0.8); Eosinophil % 3.8 %; Hematocrit 33 % (42-52); Hemoglobin 11.1 g/dL (14.0-18.0); Lymphocyte % 19.6 %; Mean Corpuscular HGB Conc 34 g/dL (31-36); Mean Corpuscular Hemoglobin 29 pg (27-31); Mean Corpuscular Volume 84 fL (80-94); Mean Platelet Volume 7.6 fL (7.4-10.4); Platelet Count 258 10^3/uL (150-450); Red Blood Count 3.88 10^6 /uL (4.18-5.48); Red Cell Distribution Width 15 % (10-15)
[2019-06-01 05:58] LABS: Albumin 3.4 g/dL (3.2-5.2); Albumin/Globulin Ratio 1.4 (1-3); BUN/Creatinine Ratio 13.5 (8-20); Calcium 8.8 mg/dL (8.6-10.3); EGFR African American 96.7 (>60); EGFR Non-African American 79.9 (>60); Globulin 2.5 g/dL (2-4); Potassium 3.9 mmol/L (3.5-5.0); Total Bilirubin 0.6 mg/dL (0.2-1.0); Total Protein 5.9 g/dL (6.4-8.9)
[2019-06-01] MEDS: Pantoprazole TAB * 40 MG TAB PO SCH (09:31)
[2019-06-01] MEDS: ALFUZOSIN 10 MG PO SCH (09:34)
[2019-06-01] MEDS ORDERED: Ciprofloxacin TAB* 500 MG PO SCH (12:00)
[2019-06-01 12:57] VITALS: BP 128/77
[2019-06-01] MEDS ORDERED: metroNIDAZOLE * 500 MG TABLET PO SCH (14:00)
--- NOTE | 2019-06-01 21:37 | DS ---
DISCHARGE SUMMARY: DATE OF ADMISSION: 05/29/19 DATE OF DISCHARGE: 06/01/19 PRIMARY CARE PHYSICIAN: Dr. Castillo. ATTENDING PHYSICIAN: Dr. Hai Enriquez. DISCHARGING PROVIDER: Carlos Diaz DO. PRIMARY DISCHARGE DIAGNOSIS: Complicated diverticulitis. DISCHARGE MEDICATIONS: 1. Ciprofloxacin 500 mg 1 tablet p.o. b.i.d. x10 days. 2. Metronidazole 1 tablet p.o. t.i.d. x10 days. Resumed Home Medications: Include 1. OxyContin 10 mg 1 tablet q.6 hours p.r.n. for pain. HOSPITAL IMAGING: CT scan done 05/29/19 shows wall thickening of the sigmoid colon with pericolonic infiltration of fat and phlegmatous changes suggestive of tiny microperforation consistent with diverticulitis. HOSPITAL COURSE: This is a pleasant 58-year-old male who had a colonoscopy on 05/26/19. He did well after the procedure. However, the following day, he developed intense left lower quadrant pain that is associated with fever, chills , and rigors. The patient had a CT scan done on 05/29/19 that revealed findings consistent with diverticulitis with microperforation. He was admitted to the hospital, given IV antibiotics, and kept n.p.o. He was seen by the surgical service, who agreed with conservative management with antibiotics. His diet was slowly advanced to full liquids, which he has been tolerating well. His pain has now improved and he is without fever and has normalization of his white blood cell count. He was deemed appropriate for discharge on 06/01. DISPOSITION: The patient is discharged home in stable condition. DISCHARGE INSTRUCTIONS: He will continue on a full liquid diet for the next 48 to 72 hours given that he still has a slight amount of tenderness in his left lower quadrant. I have sent in 2 prescriptions for ciprofloxacin 500 mg p.o. b.i.d. for 10 days and metronidazole 500 mg p.o. t.i.d. for 10 days. Discussed that he cannot consume alcohol while on the metronidazole and the warnings of ciprofloxacin use including tendon rupture. DIET: He will continue a low-residue diet for 2 to 3 weeks and then will revert to a high-fiber diet once the acute episode is completely resolved. FOLLOWUP PLAN: I will have him follow up with Dr. Enriquez in 2 to 3 weeks. He will call us sooner with any issues including any fever, pain, chills, or worsening of the abdominal pain. [id number]/[facility] #: [id number] MTDD
== END 2019-06-01 14:00 | disposition home or self-care (01) | DRG 244 ==
LOC: ED 12:39 → MED 13:26
PROVIDERS: ADMIT Internal Medicine Gastroenterology; ATTEND Internal Medicine Gastroenterology
DX: K57.20 Diverticulitis of large intestine with perforation and abscess without bleeding (principal); I10 Essential (primary) hypertension; G47.30 Sleep apnea, unspecified; N40.0 Benign prostatic hyperplasia without lower urinary tract symptoms; M19.90 Unspecified osteoarthritis, unspecified site; K21.9 Gastro-esophageal reflux disease without esophagitis; N28.1 Cyst of kidney, acquired; Z96.659 Presence of unspecified artificial knee joint; Z79.01 Long term (current) use of anticoagulants; Z79.891 Long term (current) use of opiate analgesic; Z79.899 Other long term (current) drug therapy; Z80.0 Family history of malignant neoplasm of digestive organs; Z87.891 Personal history of nicotine dependence
CPT/HCPCS: 36415; 71045; 80048; 80053; 81003; 81015; 83605; 85025; 85730; 87040; 87086; 94660; 96374; 96375; 99284; A9270-GY; J0744; J1170; J2270; J2405

== ENCOUNTER 2019-07-29 07:30 | Inpatient (IN) | payer BC ==
--- NOTE | 2019-07-22 12:06 | HP ---
HISTORY AND PHYSICAL: DATE OF ADMISSION/SURGERY: 07/29/19 DATE OF OFFICE VISIT: 07/21/19 SURGEON: Latanya Clark MD.* (DICTATED BY PAMELLA KINNEY) PROCEDURE: Left total hip arthroplasty. CHIEF COMPLAINT: Left hip pain. HISTORY OF PRESENT ILLNESS: Mr. Tracey is a 58-year-old gentleman with end- stage osteoarthritis of the left hip. He has failed conservative treatment and elected to proceed with a left total hip arthroplasty. PAST MEDICAL HISTORY: Hypertension, BPH, history of acute-onset chronic kidney disease, and right bundle-branch block. PAST SURGICAL HISTORY: Left total knee arthroplasty, right total knee arthroplasty, bilateral knee arthroscopies, carpal tunnel release, tonsillectomy , and cataract removal. CURRENT MEDICATIONS: Lisinopril/hydrochlorothiazide 20 mg/12.5 mg a day. ALLERGIES: No known drug allergies. FAMILY HISTORY: Denies. SOCIAL HISTORY: He is a 58-year-old gentleman, lives with his spouse. He does not smoke or use drugs. He uses alcohol rarely. REVIEW OF SYSTEMS: A complete 14-point review of systems was reviewed with the patient. It was significant for acute-onset kidney disease following his total knee arthroplasty. He denies a history of DVT, PE, hepatitis, HIV, or anesthesia problems. PHYSICAL EXAMINATION GENERAL: He is well developed, well nourished, in no acute distress. VITAL SIGNS: He stands 6 feet 1 inch tall, weighs 269 pounds. Blood pressure is 172/84, heart rate is 69. HEENT: Normocephalic, atraumatic. NECK: Supple. No palpable lymph nodes. PULMONARY: Lungs are clear to auscultation bilaterally. CARDIO: Regular rate and rhythm. Strong S1, S2. ABDOMEN: Soft, nontender, nondistended. NEUROLOGICAL: He is alert and oriented x3. MUSCULOSKELETAL: Left Lower Extremity: The skin is intact. There are no open wounds or abrasions. He walks with an antalgic-type gait favoring his left hip. He has 80 degrees of hip flexion, reproducing groin pain. He is able to dorsiflex and plantar flex. He has 2+ dorsalis pedis pulse and intact sensation. ASSESSMENT AND PLAN: Mr. Tracey is a 58-year-old gentleman with end-stage osteoarthritis of the left hip. He has failed conservative treatment and elected to proceed with a left total hip arthroplasty. The surgery is scheduled for 07/29/[address] Clark has discussed the risks and benefits of the surgery at today's visit and all of his questions were answered. He will follow up with Dr. Clark 2 weeks after the surgery. No TXA would be used in this patient because of his history of acute renal insufficiency following his total knee arthroplasty. PAMELLA KINNEY [id number]/[facility] #: [id number] MTDSarah
[~2019-07-29 07:30] MED LIST changes: -Acetaminophen TAB* 325 MG PO ONE; -Famotidine IV* 10 MG/ML 2 ML (20 mg) IV ONE; -Gabapentin CAP(*) 300 MG PO ONE; -Tranexamic Acid 1,000 MG in NS 0.9% 50 ML* (outpatient use) IV SCH; -celeCOXIB CAP* 200 MG PO ONE
--- OUTSIDE RECORDS SUMMARY | 2019-07-29 12:35 | XMS REPORT | Continuity of Care Document ---
:1960 External Reference #:[id number] Author Name Latanya Clark M.D. (transmitted by agent of provider Olesya Taylor) Address [address] [place] [id number] Care Team Providers Name Role Phone John Castillo MD - Family Medicine Care Team Information Bi Architect Problems Active Problems Provider Date Localized, primary [...] a former smoker Unknown Smoking Status Reviewed: 07/21/19 Patient is a former smoker Exercise Type/Frequency [...] Tablets ER 24HR Fenofibrate Unknown 50mg Capsules Lisinopril-Hydrochlorot 1 by mouth every Unknown hiazide day 20-12.5mg Tablets History Medications Oxycodone HCL ER 1 by mouth every 14tabs Latanya Clark, 03/28/2019 - 30mg 12 hours as M.D. 05/01/2019 Tab ER 12H Abuse-Det needed pain [place] take 1 tab by 30tabs Latanya Clark, [...] Available Vital Signs Date Vital Result Comment 07/21/2019 10:27am Height 73 inches 6'1" Weight 269.25 lb Heart Rate 69 /min BP Systolic 172 mmHg BP Diastolic 84 mmHg Respiratory Rate 22 /min Body Temperature 96.7 F Pain Level 0 O2 % BldC Oximetry 97 % BMI (Body Mass Index) 35.5 kg/m2 06/16/2019 8:00am Height 73 inches 6'1" Weight 266.00 lb Heart Rate 69 /min BP Systolic 150 mmHg BP Diastolic 96 mmHg Body Temperature 95.8 F Pain Level 2 BMI (Body Mass Index) 35.1 kg/m2 Results Test Acquired Date Facility Test Result H/L Range Note Inr/Protime 07/21/2019 [facility] Inr 0.98 Normal 0.82-1.[address] [place] [address] [phone] Laboratory test 07/21/2019 [facility] Partial 36.8 seconds Normal 26.0-38.[address] [place] [address] Time PTT [phone] Type & Screen 07/21/2019 [facility] Patient AB Negative [address] [place] [address] [phone] Antibody Screen NEGATIVE Xray 04/18/2019 [facility] Inj/Aspir Major <pending> JT Or Bursa W/ US Inr/Protime 03/19/2019 [facility] Inr 0.97 Normal 0.82- 2, [address] 1.09 [place] [address] [phone] Laboratory test 03/19/2019 [facility] Partial Thrombo 32.7 seconds Normal 26.0- [address] Time PTT 38.0 [place] [address] [phone] Type & Screen 03/19/2019 [facility] Patient Blood AB Negative [address] [place] [address] [phone] Antibody Screen NEGATIVE 1 Standard intensity warfarin therapeutic range: 2.0-3.0 High intensity warfarin therapeutic range: 2.5-3.5 2 PAIN IN LEFT KNEE, UNILATERAL PRIMARY OSTEOARTHRIT 3 Standard intensity warfarin therapeutic range: 2.0-3.0 High intensity warfarin therapeutic range: 2.5-3.5 4 AA 03/27 Procedures Date Code Description Status 04/18/2019 96661 Inj/Aspir Major JT Or Bursa W/ US Completed 03/27/2019 71628 TKR Total Knee Replacement Completed 03/27/2019 68828 TKR Total Knee Replacement Completed 02/17/2019 68023 Inject/Drain Joint/Bursa Major W/O US Completed Medical Devices Description No Information Available Encounters Type Date Location Provider Dx Diagnosis Office Visit 06/16/2019 [facility] Latanya Clark, Z96.652 Presence of left 8:15a at [facility].Marta artificial knee joint Z47.1 Aftercare following joint replacement surgery M25.552 Pain in left hip M16.12 Unilateral primary osteoarthritis, left hip Office Visit 05/30/2019 [facility]ally K57.20 Dvtrcli of lg int 7:00a [facility] PA-C w perforation and abscess w/o bleeding Office Visit 05/29/2019 [facility] Mcnally K57.20 Dvtrcli of lg int 7:00a [facility] w perforation and abscess w/o bleeding Office Visit 04/13/2019 [facility] Nupur N17.9 Acute kidney 10:04a [facility] NP failure, Hospitalists unspecified R53.81 Other malaise N18.9 Chronic kidney disease, unspecified R10.9 Unspecified abdominal pain Office Visit 04/10/2019 [facility] Rosemary N17.9 Acute kidney 10:02a [facility] PA failure, Hospitalists unspecified R53.81 Other malaise I12.9 Hypertensive chronic kidney disease w stg 1-4/unsp chr kdny N18.9 Chronic kidney disease, unspecified Office Visit 03/27/2019 10:13a [facility] Lydia Z96.652 Presence of left [facility] D.O. artificial knee Hospitalists joint I10 Essential (primary) hypertension R09.02 Hypoxemia G47.33 Obstructive sleep apnea (adult) (pediatric) Office Visit 03/10/2019 8:45a [facility] Latanya Clark, M25.562 Pain in left at [facility] knee M17.12 Unilateral primary osteoarthritis, left knee M25.462 Effusion, left knee Office Visit 02/06/2019 9:15a [facility] Iliana Granados M25.562 Pain in at [facility] PAMELLA Keene left knee M17.12 Unilateral primary osteoarthritis, left knee Office Visit 01/27/2019 8:00a [facility] Clark M25.562 [facility] M17.12 Unilateral primary osteoarthritis, left knee M25.552 Pain in left hip M16.12 Unilateral primary osteoarthritis, left hip S83.242A Oth tear of medial meniscus, current injury, left knee, init Assessments Date Code Description Provider 07/21/2019 M25.552 Pain in left hip Latanya Clark M.D. 07/21/2019 M16.12 Unilateral primary osteoarthritis, left Latanya Clark M.D. hip 06/16/2019 Z96.652 Presence of left artificial knee joint Latanya Clark M.D. 06/16/2019 Z47.1 Aftercare following joint replacement Latanya Clark M.D. surgery 06/16/2019 M25.552 Pain in left hip Latanya Clark M.D. 06/16/2019 M16.12 Unilateral primary osteoarthritis, left Latanya Clark M.D. hip 05/30/2019 K57.20 Diverticulitis of large intestine with John Byrne PA-C perforation and abscess without bleeding 05/29/2019 K57.20 Diverticulitis of large intestine with John Byrne PA-C perforation and abscess without bleeding 05/02/2019 Z96.652 Presence of left artificial knee joint Latanya Clark M.D. 05/02/2019 M16.12 Unilateral primary osteoarthritis, left Latanya Clark M.D. hip 05/02/2019 M25.552 Pain in left hip Latanya Clark M.D. 05/02/2019 Z47.1 Aftercare following joint replacement Latanya Clark M.D. surgery 04/18/2019 Z96.652 Presence of left artificial knee joint Latanya Clark M.D. 04/18/2019 M17.12 Unilateral primary osteoarthritis, left Latanya Clark M.D. knee 04/18/2019 M25.552 Pain in left hip Latanya Clark M.D. 04/18/2019 M16.12 Unilateral primary osteoarthritis, left Latanya Clark M.D. hip 04/18/2019 Z47.1 Aftercare following joint replacement Latanya Clark M.D. surgery 04/13/2019 N17.9 Acute kidney failure, unspecified Nupur Shortle, LUNCHROOM MOTHER 04/13/2019 R53.81 Other malaise Nupur Shortle, LUNCHROOM MOTHER 04/13/2019 N18.9 Chronic kidney disease, unspecified Nupur Shortle, LUNCHROOM MOTHER 04/13/2019 R10.9 Unspecified abdominal pain Nupur Shortle, LUNCHROOM MOTHER 04/12/2019 R53.81 Other malaise Nupur Shortle, LUNCHROOM MOTHER 04/12/2019 N17.9 Acute kidney failure, unspecified Nupur Shortle, LUNCHROOM MOTHER 04/12/2019 R10.9 Unspecified abdominal pain Nupur Shortle, LUNCHROOM MOTHER 04/11/2019 N17.9 Acute kidney failure, unspecified Rosemary Winter PA 04/11/2019 R53.81 Other malaise PAMELLA Pablo 04/11/2019 I12.9 Hypertensive chronic kidney disease with PAMELLA Pablo stage 1 through stage 4 chronic kidney disease, or unspecified chronic kidney disease 04/11/2019 N18.9 Chronic kidney disease, unspecified Rosemary Winter PA 04/10/2019 N17.9 Acute kidney failure, unspecified Rosemary Winter PA 04/10/2019 Z96.652 Presence of left artificial knee joint Matias Hawthorne MD 04/10/2019 Z47.1 Aftercare following joint replacement Matias Hawthorne MD surgery 04/10/2019 R53.81 Other malaise PAMELLA Pablo 04/10/2019 I12.9 Hypertensive chronic kidney disease with PAMELLA Pablo stage 1 through stage 4 chronic kidney disease, or unspecified chronic kidney disease 04/10/2019 N18.9 Chronic kidney disease, unspecified Rosemary Winter PA 03/27/2019 Z96.652 Presence of left artificial knee joint Alex LizOMarta 03/27/2019 I10 Essential (primary) hypertension Alex LizO. 03/27/2019 M17.12 Unilateral primary osteoarthritis, left Katiana Khan, RPA- C knee 03/27/2019 R09.02 Hypoxemia Alex LizO. 03/27/2019 G47.33 Obstructive sleep apnea (adult) Alex LizO. (pediatric) 03/27/2019 M17.12 Unilateral primary osteoarthritis, left Latanya Clark M.D. knee 03/19/2019 M25.562 Pain in left knee Latanya Clark M.D. 03/19/2019 M17.12 Unilateral primary osteoarthritis, left Latanya Clark M.D. knee 03/10/2019 M25.562 Pain in left knee Latanya Clark M.D. 03/10/2019 M17.12 Unilateral primary osteoarthritis, left Latanya Clark M.D. knee 03/10/2019 M25.462 Effusion, left knee Latanya Clark M.D. 02/17/2019 M25.562 Pain in left knee aLtanya Clark M.D. 02/17/2019 M17.12 Unilateral primary osteoarthritis, left Latanya Clark M.D. knee 02/06/2019 M25.562 Pain in left knee PAMELLA Valdez 02/06/2019 M17.12 Unilateral primary osteoarthritis, left PAMELLA Valdez knee 01/27/2019 M25.562 Pain in left knee Latanya Clark M.D. 01/27/2019 M17.12 Unilateral primary osteoarthritis, left Latanya Clark M.D. knee 01/27/2019 M25.552 Pain in left hip Latanya Clark M.D. 01/27/2019 M16.12 Unilateral primary osteoarthritis, left Latanya Clark M.D. hip 01/27/2019 S83.242A Other tear of medial meniscus, current Latanya Clark M.D. injury, left knee, in Plan of Treatment Future Appointment(s):08/18/2019 2:45 pm - Latanya Clark M.D. at [facility] at Ndhzdh9907/29/2019 4:30 pm - Harris Plaza PA-C at [facility] at Zzjrmn7307/29/2019 4:30 pm - PAMELLA Valdez at [facility] at Prnnta7307/29/2019 4:30 pm - Latanya Clark M.D. at [facility] at Cgavfm7607/21/2019 - Latanya Clark M.D.M25.552 Pain in left hipFollow up:Follow up: 2 weeks after pkdaufeY67.12 Unilateral primary osteoarthritis, left hip Functional Status Description No Information Available Mental Status Description No Information Available Referrals Description No Information Available
--- OUTSIDE RECORDS SUMMARY | 2019-07-29 12:35 | XMS REPORT | Continuity of Care Document ---
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 Problems Active Problems Provider Date Localized, primary [...] 05/01/2019 [facility] 12H Abuse-Det needed pain [place] take 1 tab by 30tabs Latanya Clark, [...] Test Result H/L Range Note Inr/Protime 07/21/2019 [facility] Inr 0.98 Normal 0.82-1.09 1 [address] [place] [address] [phone] Laboratory test 07/21/2019 [facility] Partial 36.8 seconds Normal 26.0-38.[address] [place] [address] Time PTT [phone] Type & Screen 07/21/2019 [facility] Patient AB Negative [address] [place] [place] [address] [phone] Antibody Screen NEGATIVE Xray 04/18/2019 [employer] Professor In House Inj/Aspir Major <pending> JT Or Bursa W/ US Inr/Protime 03/19/2019 [facility] Inr 0.97 Normal 0.82- 2, [address] 1.09 [place], [place] [id number] [phone] Laboratory test 03/19/2019 [facility] Partial Thrombo 32.7 seconds Normal 26.0- [address] Time PTT 38.0 [place] [address] [phone] Type & Screen 03/19/2019 [facility] Patient Blood AB Negative [address] [place] [address] [phone] Antibody Screen NEGATIVE 1 Standard intensity warfarin therapeutic range: 2.0-3.0 High intensity warfarin therapeutic range: 2.5-3.5 2 PAIN IN LEFT KNEE, UNILATERAL PRIMARY OSTEOARTHRIT 3 Standard intensity warfarin therapeutic range: 2.0-3.0 High intensity warfarin therapeutic range: 2.5-3.5 4 AA 03/27 Procedures Date Code Description Status 04/18/2019 17631 Inj/Aspir Major JT Or Bursa W/ US Completed 03/27/2019 34398 TKR Total Knee Replacement Completed 03/27/2019 21808 TKR Total Knee Replacement Completed 02/17/2019 25031 Inject/Drain Joint/Bursa Major W/O US Completed Medical Devices Description No Information Available Encounters Type Date Location Provider Dx Diagnosis Office Visit 06/16/2019 [facility] Latanya Clark, Z96.652 Presence of left 8:15a at [facility].Alex artificial knee joint Z47.1 Aftercare following joint [...] and abscess w/o bleeding Office Visit 04/13/2019 [facility] Nupur N17.9 Acute kidney 10:04a Assoc,izabella Coy NP failure, Hospitalists unspecified R53.81 Other malaise N18.9 Chronic kidney disease, unspecified R10.9 Unspecified abdominal pain Office Visit 04/10/2019 [facility] Rosemary N17.9 Acute kidney 10:02a Assoc,PAMELLA Reeves failure, Hospitalists unspecified R53.81 Other malaise I12.9 Hypertensive chronic kidney disease w stg 1-4/unsp chr kdny N18.9 Chronic kidney disease, unspecified Office Visit 03/27/2019 10:13a [facility] Lydia Z96.652 Presence of left Associzabella D.O. artificial knee Hospitalists joint I10 Essential (primary) hypertension R09.02 Hypoxemia G47.33 Obstructive sleep apnea (adult) (pediatric) Office Visit 03/10/2019 8:45a [facility] Latanya Clark, M25.562 Pain in left at [facility].DMarta knee M17.12 Unilateral primary osteoarthritis, left knee M25.462 Effusion, left knee Office Visit 02/06/2019 9:15a [facility] Iliana Granados M25.562 Pain in at [place] PAMELLA Keene left knee M17.12 Unilateral primary osteoarthritis, left knee Office Visit 01/27/2019 8:00a [facility] Latanya Clark M25.562 Pain in left at [facility].DMarta knee M17.12 Unilateral primary osteoarthritis, left knee [...] N17.9 Acute kidney failure, unspecified Nupur Shortle, [employer]AGE WORKER 04/13/2019 R53.81 Other malaise Nupur Shortle, SALVAGE WORKER 04/13/2019 N18.9 Chronic kidney disease, unspecified Nupur Shortle, SALVAGE WORKER 04/13/2019 R10.9 Unspecified abdominal pain Nupur Shortle, SALVAGE WORKER 04/12/2019 R53.81 Other malaise Nupur Shortle, SALVAGE WORKER 04/12/2019 N17.9 Acute kidney failure, unspecified Nupur Shortle, SALVAGE WORKER 04/12/2019 R10.9 Unspecified abdominal pain Nupur Shortle, SALVAGE WORKER 04/11/2019 N17.9 Acute kidney failure, unspecified PAMELLA Pablo 04/11/2019 R53.81 Other malaise PAMELLA Pablo 04/11/2019 I12.9 Hypertensive chronic kidney disease with PAMELLA Pablo stage 1 through stage 4 chronic kidney disease, or unspecified chronic kidney disease 04/11/2019 N18.9 Chronic kidney disease, unspecified PAMELLA Pablo 04/10/2019 N17.9 Acute kidney failure, unspecified PAMELLA Pablo 04/10/2019 Z96.652 Presence of left artificial knee joint Matias Hawthorne MD 04/10/2019 Z47.1 Aftercare following joint replacement Matias Hawthorne MD surgery 04/10/2019 R53.81 Other malaise PAMELLA Pablo 04/10/2019 I12.9 Hypertensive chronic kidney disease with PAMELLA Pablo stage 1 through stage 4 chronic kidney disease, or unspecified chronic kidney disease 04/10/2019 N18.9 Chronic kidney disease, unspecified PAMELLA Pablo 03/27/2019 Z96.652 Presence of left artificial knee [...] 2:45 pm - Latanya Clark M.D. at [facility] at Jettct7107/29/2019 4:30 pm - Harris Plaza PA-C at [facility] at Gdkdir2507/29/2019 4:30 pm - PAMELLA Valdez at [facility] at Fcplel3507/29/2019 4:30 pm - Latanya Clark M.D. at [facility] at Vycwum1207/21/2019 - Latanya Clark M.D.M25.552 Pain in left hipFollow up:Follow up: 2 weeks after ypaljzsE62.12 Unilateral primary osteoarthritis, left hip Functional Status Description No Information Available Mental Status Description No Information Available Referrals Description No Information Available
--- OUTSIDE RECORDS SUMMARY | 2019-07-29 12:35 | XMS REPORT | Continuity of Care Document ---
:1960 External Reference #:[id number] Author Name Hai Enriquez MD Address [facility] [place] [address] Care Team Providers Name Role Phone John Castillo MD Care Team Information [employer] Cell [employer]r [phone] Problems Active Problems Provider Date History of [...] Medications SIG Qnty Indications Ordering Date Provider Alfuzosin HCL ER Every Day Unknown 06/01/2019 10mg Tablets ER 24HR Ciprofloxacin HCL Twice Daily 20tabs Unknown 06/01/2019 500mg Tablets Metronidazole Three Times 30tabs Unknown 06/01/2019 500mg Daily Tablets Almacone Q6H 1units Unknown 04/13/2019 [id number] Suspension Sucralfate Take 1 Tablet By 120tabs Hai Johnson 04/13/2019 1gm Tablets Mouth Four Times MD Mina A Day On An Empty Stomach Ondansetron Q6H 30tabs Unknown 04/13/2019 4mg Tablets Dispers Omeprazole 1 cap PO daily 30caps Hai Johnson 04/13/2019 20mg Capsules 30min before a MD DR chalo Enriquez Twice Daily 60tabs Unknown 03/28/2019 2.5mg Tablets Oxycodone HCL Q4H 28tabs Unknown 03/28/2019 5mg Tablets Alfuzosin HCL ER Every Morning Unknown 03/19/2019 10mg Tablets ER 24HR Fenofibrate Every Morning Unknown 03/19/2019 48mg Tablets Simvastatin Every Morning Unknown 03/19/2019 20mg Tablets History Medications Oxycodone HCL Q4H Unknown 05/16/2019 - 5mg 05/26/2019 Tablets Fenofibrate Every Morning Unknown 05/16/2019 - 40mg 05/26/2019 Tablets Peg use as directed 4000ml Z86.010 Carlos Joe, 04/17/2019 - 3350/Electrolytes DO 05/29/2019 240gm Solution Rec Almacone Q6H 1units Unknown 04/13/2019 - 05/16/2019 [id number] Suspension Sucralfate 0630,1100,1600,21 60tabs Unknown 04/13/2019 - 1gm 00 05/29/2019 Tablets Ondansetron Q6H 30tabs Unknown 04/13/2019 - 4mg 05/26/2019 Tablets Dispers Omeprazole Every Day 30caps Unknown 04/13/2019 - 20mg 05/29/[address] Anderson Twice Daily 60tabs Unknown 03/28/2019 - 2.5mg Tablets 05/26/2019 Oxycodone HCL Q4H 28tabs Unknown 03/28/2019 - 5mg 05/16/2019 Tablets Oxycodone HCL ER Q12H 14tabs Unknown 03/28/2019 - 15mg 04/13/2019 Tab ER 12H Abuse-Det Alfuzosin HCL ER Every Morning Unknown 03/19/2019 - 10mg 05/26/2019 Tablets ER 24HR Fenofibrate Every Morning Unknown 03/19/2019 - 48mg 05/16/2019 Tablets Simvastatin Every Morning Unknown 03/19/2019 - 20mg 05/26/2019 Tablets Immunizations Description No Information Available Vital Signs Date Vital Result Comment 04/17/2019 8:36am Height 73 inches 6'1" Weight 260.00 lb BP Systolic 138 mmHg BP Diastolic 75 mmHg Heart Rate 82 /min BMI (Body Mass Index) 34.3 kg/m2 Results Test Date Facility Test Result H/L Range Note Automated blood N2N/CCD Import Automated blood 0.0 nucleated 019 nucleated erythrocytes erythrocytes detection detection Serum or plasma N2N/CCD Import Serum or plasma 141 mmol/L 135- 145 sodium measurement 019 sodium measurement (moles/volume) (moles/volume) Serum or plasma N2N/CCD Import Serum or plasma 3.9 mmol/L 3.5- 5.0 potassium 019 potassium measurement measurement (moles/volum (moles/volume) Serum or plasma N2N/CCD Import Serum or plasma 110 mmol/L 101- 111 chloride 019 chloride measurement measurement (moles/volume (moles/volume) Serum or plasma N2N/CCD Import Serum or plasma 26 mmol/L 22-32 carbon dioxide, 019 carbon dioxide, total measurement total measurement (moles/volume) Serum or plasma N2N/CCD Import Serum or plasma 5 mmol/L 2-11 anion gap 019 anion gap Serum glucose N2N/CCD Import Serum glucose 101 mg/dL 70-100 measurement 019 measurement (mass/volume) (mass/volume) Serum or plasma N2N/CCD Import Serum or plasma 13 mg/dL 6-24 urea nitrogen 019 urea nitrogen measurement measurement (mass/vo (mass/volume) Serum or plasma N2N/CCD Import Serum or plasma 0.96 mg/dL 0.67- 1.17 creatinine 019 creatinine measurement measurement (mass/volum (mass/volume) Serum or plasma N2N/CCD Import Serum or plasma 13.5 8-20 urea 019 urea nitrogen/creatinine nitrogen/creatinine ratio ratio Serum or plasma N2N/CCD Import Serum or plasma 8.8 mg/dL 8.6- 10.3 calcium measurement 019 calcium measurement (mass/volume) (mass/volume) Serum total protein N2N/CCD Import Serum total protein 5.9 g/dL 6.4-8.9 measurement 019 measurement (mass/volume) (mass/volume) Serum or plasma N2N/CCD Import Serum or plasma 3.4 g/dL 3.2-5.2 albumin measurement 019 albumin measurement by bromocresol by bromocresol green (BCG) dye binding method (ma Lab Results N2N/CCD Import Globulin 2.5 g/dL 2-4 019 Serum or plasma N2N/CCD Import Serum or plasma 1.4 1-3 albumin/globulin 019 albumin/globulin mass ratio mass ratio Serum or plasma N2N/CCD Import Serum or plasma 0.60 mg/dL 0.2- 1.0 total bilirubin 019 total bilirubin measurement (mass/ measurement (mass/volume) Serum or plasma N2N/CCD Import Serum or plasma 55 U/L 34-104 alkaline 019 alkaline phosphatase phosphatase measurement ( measurement (enzymatic activity/volume) Serum or plasma N2N/CCD Import Serum or plasma 6 U/L 7-52 alanine 019 alanine aminotransferase aminotransferase measureme measurement (enzymatic activity/volume) Serum or plasma N2N/CCD Import Serum or plasma 7 U/L 13-39 aspartate 019 aspartate aminotransferase aminotransferase measure measurement (enzymatic activity/volume) Estimated N2N/CCD Import Estimated 79.9 glomerular 019 glomerular filtration rate filtration rate (GFR) non-Afr (GFR) non- Lab Results N2N/CCD Import Estimated GFR 96.7 019 () Automated blood N2N/CCD Import Automated blood 6.0 3.5-10.8 leukocytes count 019 leukocytes count 10^3/uL corrected for nuc corrected for nucleated erythrocytes (number/volume) Automated blood N2N/CCD Import Automated blood 3.88 4.18-5.48 erythrocyte count 019 erythrocyte count 10^6/uL (number/volume) (number/volume) Blood hemoglobin N2N/CCD Import Blood hemoglobin 11.1 g/dL 14.0- 18.0 measurement 019 measurement (mass/volume) (mass/volume) Automated blood N2N/CCD Import Automated blood 33 % 42-52 hematocrit 019 hematocrit (percentage) (percentage) Automated N2N/CCD Import Automated 84 fL 80-94 erythrocyte mean 019 erythrocyte mean corpuscular volume corpuscular volume Automated N2N/CCD Import Automated 29 pg 27-31 erythrocyte mean 019 erythrocyte mean corpuscular corpuscular hemoglobin hemoglobin (mass per erythrocyte) Automated N2N/CCD Import Automated 34 g/dL 31-36 erythrocyte mean 019 erythrocyte mean corpuscular corpuscular hemoglobin hemoglobin concentration measurement (mass/vol Automated N2N/CCD Import Automated 15 % 10-15 erythrocyte 019 erythrocyte distribution width distribution width ratio ratio Automated blood N2N/CCD Import Automated blood 258 150-450 platelet count 019 platelet count 10^3/uL (number/volume) (number/volume) Automated blood N2N/CCD Import Automated blood 7.6 fL 7.4-10.4 platelet mean 019 platelet mean volume measurement volume measurement Automated blood N2N/CCD Import Automated blood 0.6 % basophils/100 019 basophils/100 leukocytes leukocytes Automated blood N2N/CCD Import Automated blood 3.8 % eosinophils/100 019 eosinophils/100 leukocytes leukocytes Automated blood N2N/CCD Import Automated blood 10.1 % monocytes/100 019 monocytes/100 leukocytes leukocytes Automated blood N2N/CCD Import Automated blood 19.6 % lymphocytes/100 019 lymphocytes/100 leukocytes leukocytes Automated blood N2N/CCD Import Automated blood 65.9 % neutrophils/100 019 neutrophils/100 leukocytes leukocytes Blood nucleated N2N/CCD Import Blood nucleated 0.0 erythrocytes 019 erythrocytes 10^3/ul automated count automated count (numb (number/volume) Automated blood N2N/CCD Import Automated blood 0.0 0-0.2 basophil count 019 basophil count 10^3/ul (number/volume) (number/volume) Automated blood N2N/CCD Import Automated blood 0.2 0-0.6 eosinophil count 019 eosinophil count 10^3/ul (number/volume) (number/volume) Blood monocytes N2N/CCD Import Blood monocytes 0.6 0-0.8 automated count 019 automated count 10^3/ul (number/volume) (number/volume) Blood lymphocytes N2N/CCD Import Blood lymphocytes 1.2 1.0-4.8 automated count 019 automated count 10^3/ul (number/volume) (number/volume) CT biopsy liver N2N/CCD Import CT biopsy liver 4.0 1.5-7.7 019 10^3/ul Activated partial N2N/CCD Import Activated partial 36.4 26.0- 38.0 thromboplastin time 019 thromboplastin time seconds (aPTT) in pl (aPTT) in platelet poor plasma by coagulation a Culture, urine N2N/CCD Import Culture, urine No Growth 019 (<1,000 Cfu/mL) Urine epithelial N2N/CCD Import Urine epithelial Present Absent cells detection 019 cells detection Urine bacteria N2N/CCD Import Urine bacteria Absent Absent detection by 019 detection by automated method automated method Urine erythrocytes N2N/CCD Import Urine erythrocytes 3+(>10/hpf Absent detection by 019 detection by ) automated method automated method Urine leukocytes N2N/CCD Import Urine leukocytes Trace(0-5/ Absent detection by 019 detection by hpf) automated method automated method Urine glucose N2N/CCD Import Urine glucose Negative Negative detection by 019 detection by automated test automated test strip strip Urine total N2N/CCD Import Urine total Negative Negative bilirubin detection 019 bilirubin detection by automated test by automated test strip Urine nitrite N2N/CCD Import Urine nitrite Negative Negative detection by 019 detection by automated test automated test strip strip Urine hemoglobin N2N/CCD Import Urine hemoglobin 3+ Negative detection by test 019 detection by test strip strip Urine leukocyte N2N/CCD Import Urine leukocyte Negative Negative esterase detection 019 esterase detection by automated te by automated test strip Protein N2N/CCD Import Protein 1+(30 Negative [Mass/volume] in 019 [Mass/volume] in mg/dl) Urine by Automated Urine by Automated test s test strip Ketones N2N/CCD Import Ketones Negative Negative [Mass/volume] in 019 [Mass/volume] in Urine by Automated Urine by Automated test s test strip Urine urobilinogen N2N/CCD Import Urine urobilinogen Negative Negative measurement 019 measurement (units/volume) by t (units/volume) by test strip Lab Results N2N/CCD Import Urine pH 6.0 5-9 019 Specific gravity of N2N/CCD Import Specific gravity of 1.016 1.010-1.03 Urine by 019 Urine by 0 Refractometry Refractometry automat automated Urine clarity by N2N/CCD Import Urine clarity by Clear refractometry 019 refractometry automated automated Color of Urine by N2N/CCD Import Color of Urine by Yellow Auto 019 Auto Serum or plasma N2N/CCD Import Serum or plasma 1.0 mmol/L 0.5- 2.0 lactate measurement 019 lactate measurement (moles/volume) (moles/volume) Laboratory test [facility] [place]otest SEE RESULT 1 finding 019 BELOW Laboratory test [facility] Surgical Pathology SEE RESULT 2 finding 019 Order BELOW Serum or plasma N2N/CCD Import Serum or plasma 16 mg/dL 6-24 urea nitrogen 019 urea nitrogen measurement measurement (mass/vo (mass/volume) Serum or plasma N2N/CCD Import Serum or plasma 1.27 mg/dL 0.67- 1.17 creatinine 019 creatinine measurement measurement (mass/volum (mass/volume) Serum or plasma N2N/CCD Import Serum or plasma 12.6 8-20 urea 019 urea nitrogen/creatinine nitrogen/creatinine ratio ratio Serum or plasma N2N/CCD Import Serum or plasma 9.2 mg/dL 8.6- 10.3 calcium measurement 019 calcium measurement (mass/volume) (mass/volume) Serum total protein N2N/CCD Import Serum total protein 6.1 g/dL 6.4-8.9 measurement 019 measurement (mass/volume) (mass/volume) Serum or plasma N2N/CCD Import Serum or plasma 4.2 g/dL 3.2-5.2 albumin measurement 019 albumin measurement by bromocresol by bromocresol green (BCG) dye binding method (nd Lab Results N2N/CCD Import Globulin 1.9 g/dL 2-4 019 Serum or plasma N2N/CCD Import Serum or plasma 2.2 1-3 albumin/globulin 019 albumin/globulin mass ratio mass ratio Serum or plasma N2N/CCD Import Serum or plasma 0.70 mg/dL 0.2- 1.0 total bilirubin 019 total bilirubin measurement (mass/ measurement (mass/volume) Serum or plasma N2N/CCD Import Serum or plasma 84 U/L 34-104 alkaline 019 alkaline phosphatase phosphatase measurement ( measurement (enzymatic activity/volume) Serum or plasma N2N/CCD Import Serum or plasma 8 U/L 7-52 alanine 019 alanine aminotransferase aminotransferase measureme measurement (enzymatic activity/volume) Serum or plasma N2N/CCD Import Serum or plasma 10 U/L 13-39 aspartate 019 aspartate aminotransferase aminotransferase measure measurement (enzymatic activity/volume) Estimated N2N/CCD Import Estimated 57.8 glomerular 019 glomerular filtration rate filtration rate (GFR) non-Afr (GFR) non- Lab Results N2N/CCD Import Estimated GFR 70.0 019 () Serum or plasma N2N/CCD Import Serum or plasma 1.57 0.34-5.60 thyroid stimulating 019 thyroid stimulating mcIU/mL hormone (TSH) hormone (TSH) measurement (units/volume) Automated blood N2N/CCD Import Automated blood 5.8 3.5-10.8 leukocytes count 019 leukocytes count 10^3/uL corrected for nuc corrected for nucleated erythrocytes (number/volume) Automated blood N2N/CCD Import Automated blood 3.50 4.18-5.48 erythrocyte count 019 erythrocyte count 10^6/uL (number/volume) (number/volume) Blood hemoglobin N2N/CCD Import Blood hemoglobin 10.3 g/dL 14.0- 18.0 measurement 019 measurement (mass/volume) (mass/volume) Automated blood N2N/CCD Import Automated blood 30 % 42-52 hematocrit 019 hematocrit (percentage) (percentage) Automated N2N/CCD Import Automated 86 fL 80-94 erythrocyte mean 019 erythrocyte mean corpuscular volume corpuscular volume Automated N2N/CCD Import Automated 30 pg 27-31 erythrocyte mean 019 erythrocyte mean corpuscular corpuscular hemoglobin hemoglobin (mass per erythrocyte) Automated N2N/CCD Import Automated 35 g/dL 31-36 erythrocyte mean 019 erythrocyte mean corpuscular corpuscular hemoglobin hemoglobin concentration measurement (mass/vol Automated N2N/CCD Import Automated 14 % 10-15 erythrocyte 019 erythrocyte distribution width distribution width ratio ratio Automated blood N2N/CCD Import Automated blood 273 150-450 platelet count 019 platelet count 10^3/uL (number/volume) (number/volume) Automated blood N2N/CCD Import Automated blood 7.3 fL 7.4-10.4 platelet mean 019 platelet mean volume measurement volume measurement Serum or plasma N2N/CCD Import Serum or plasma 140 mmol/L 135- 145 sodium measurement 019 sodium measurement (moles/volume) (moles/volume) Serum or plasma N2N/CCD Import Serum or plasma 4.1 mmol/L 3.5- 5.0 potassium 019 potassium measurement measurement (moles/volum (moles/volume) Serum or plasma N2N/CCD Import Serum or plasma 107 mmol/L 101- 111 chloride 019 chloride measurement measurement (moles/volume (moles/volume) Serum or plasma N2N/CCD Import Serum or plasma 26 mmol/L 22-32 carbon dioxide, 019 carbon dioxide, total measurement total measurement (moles/volume) Serum or plasma N2N/CCD Import Serum or plasma 7 mmol/L 2-11 anion gap 019 anion gap Serum glucose N2N/CCD Import Serum glucose 87 mg/dL 70-100 measurement 019 measurement (mass/volume) (mass/volume) Lab Results N2N/CCD Import Estimated GFR 57.3 019 () Estimated N2N/CCD Import Estimated 47.4 glomerular 019 glomerular filtration rate filtration rate (GFR) non-Afr (GFR) non- Serum or plasma N2N/CCD Import Serum or plasma 9.2 mg/dL 8.6- 10.3 calcium measurement 019 calcium measurement (mass/volume) (mass/volume) Serum or plasma N2N/CCD Import Serum or plasma 18.5 8-20 urea 019 urea nitrogen/creatinine nitrogen/creatinine ratio ratio Serum or plasma N2N/CCD Import Serum or plasma 1.51 mg/dL 0.67- 1.17 creatinine 019 creatinine measurement measurement (mass/volum (mass/volume) Serum or plasma N2N/CCD Import Serum or plasma 28 mg/dL 6-24 urea nitrogen 019 urea nitrogen measurement measurement (mass/vo (mass/volume) Serum glucose N2N/CCD Import Serum glucose 116 mg/dL 70-100 measurement 019 measurement (mass/volume) (mass/volume) BMP W/O Egfr(!) [facility] Sodium(!) <pending> 019 Potassium(!) <pending> Chloride Serum/Plasma(!) <pending> Carbon Dioxide Ser/Plasm(!) <pending> BUN - Urea Nitrogen(!) <pending> Calcium Ser/Plasma Mass/Vol(!) <pending> Creatinine Serum Mass/Vol(!) <pending> Glucose Serum(!) <pending> Hemoglobin And 04/13/2019 [facility] Hemoglobin Blood <pending> Hematocrit Hematocrit <pending> Blood hemoglobin 04/13/2019 N2N/CCD Import Blood hemoglobin 10.0 g/dL 14.0-18.0 measurement measurement (mass/volume) (mass/volume) Automated blood 04/13/2019 N2N/CCD Import Automated blood 28 % 42-52 hematocrit hematocrit (percentage) (percentage) Serum or plasma 04/13/2019 N2N/CCD Import Serum or plasma 136 mmol/L 135 -145 sodium measurement sodium measurement (moles/volume) (moles/volume) Serum or plasma 04/13/2019 N2N/CCD Import Serum or plasma 4.1 mmol/L 3.5 -5.0 potassium potassium measurement measurement (moles/volum (moles/volume) Serum or plasma 04/13/2019 N2N/CCD Import Serum or plasma 105 mmol/L 101 -111 chloride chloride measurement measurement (moles/volume (moles/volume) Serum or plasma 04/13/2019 N2N/CCD Import Serum or plasma 24 mmol/L 22- 32 carbon dioxide, carbon dioxide, total measurement total measurement (moles/volume) Serum or plasma 04/13/2019 N2N/Q1 Labs Import Serum or plasma 7 mmol/L 2-11 anion gap anion gap Serum or plasma 04/12/2019 N2N/CCD Import Serum [...] Choice Occult Blood #1 <pending> finding Screen Blood immature 04/11/2019 N2N/CCD Import Blood immature [...] Auto CNT <pending> MPV <pending> Lymph% <pending> [place]% <pending> Neutrophil % <pending> Absolute Lymphocytes <pending> [...] blood 0.8 % basophils/100 basophils/100 leukocytes leukocytes Automated blood 04/11/2019 N2N/CCD Import Automated blood 0.0 nucleated nucleated erythrocytes erythrocytes detection detection Serum or plasma 04/10/2019 N2N/CCD Import Serum [...] Auto CNT <pending> MPV <pending> Lymph% <pending> [place]% <pending> Neutrophil % <pending> Absolute Lymphocytes <pending> Absolute Monocytes <pending> Absolute Neutrophils <pending> Xray 04/10/2019 [facility] [place] Renal Complete <pending> Xray 04/10/2019 [facility] US, Urinary <pending> Bladder (40497) Influenza virus A 04/10/2019 N2N/CCD Import Influenza [...] ascorbic * Negative acid detection acid detection Laboratory test 04/10/2019 [facility] Lactic Acid <pending> finding Ser/Plas Mass/Vol Ua Microscopic(!) 04/10/2019 [facility] Ua WBC [...] 43 mmol/L measurement measurement (moles/volume) (moles/volume) Urine nitrite 04/10/2019 N2N/CCD Import Urine nitrite Negative Negative detection by detection by automated test automated test strip strip Urine total 04/10/2019 N2N/CCD Import Urine total Negative Negative bilirubin bilirubin detection by detection by automated test automated test strip Urine glucose 04/10/2019 N2N/CCD Import Urine glucose Negative Negative detection by detection by automated test automated test strip strip Urine leukocytes 04/10/2019 N2N/CCD Import Urine leukocytes Trace(0-5/hp Absent detection by detection by f) automated method automated method Urine creatinine 04/10/2019 N2N/CCD Import Urine creatinine 111.84 mg/dL measurement measurement (mass/volume) (mass/volume) Urine bacteria 04/10/2019 N2N/CCD Import Urine bacteria Absent Absent detection by detection by automated method automated method Urine erythrocytes 04/10/2019 N2N/CCD Import Urine Trace(0-2/hp Absent detection by erythrocytes f) automated method detection by automated method Blood hemoglobin 03/28/2019 N2N/CCD Import Blood hemoglobin 12.4 g/dL 14.0-18.0 measurement measurement (mass/volume) (mass/volume) Lab Results 03/28/2019 N2N/CCD Import Estimated GFR [...] 36 % 42-52 hematocrit hematocrit (percentage) (percentage) Whole blood 03/19/2019 N2N/CCD Import Whole blood 0.97 0.82-1.09 international international normalized ratio normalized ratio (Inr) (Inr) Activated partial 03/19/2019 N2N/CCD Import Activated partial 32.7 seconds 26.0-38.0 thromboplastin thromboplastin time (aPTT) in pl time (aPTT) in platelet poor plasma by coagulation a 1 SEE RESULT BELOW Name: JOHN MALONE : [address]: Hai Enriquez MD Acct: [id number] Unit: [id number] AGE: 58 Location: ENDO Re05/26/19 SEX: M Status: REG REF SPEC: [id number] MISAEL: 05/26/[address] [facility] [address]: Hai Enriquez MD REQ: [id number] RECD: 05/26/19 STATUS: MELISSA RAMOS DR: John Castillo MD _ SOURCE: GAS ANTRUM SPDES: ORDERED: Clotest Procedure Result Reported Site Clotest Final 05/27/19- 656 ML Clotest Negative * ML - Main Lab . 2 SEE RESULT BELOW Name: JOHN MALONE : [address]: Hai Enriquez MD Acct: [id number] Unit: [id number] AGE: 58 Location: ENDO Re05/26/19 SEX: M Status: DEP REF SPEC: [id number] MISAEL: 05/26/[address] [facility] [address]: Hai Enriquez MD REQ: [id number] RECD: 05/26/190 STATUS: HINA RAMOS DR: John Castillo MD _ ORDERED: LEVEL 4/2 FINAL DIAGNOSIS 1. Esophagus, random, biopsy: -- Benign squamous mucosa with mild erosive changes. -- No columnar component present for evaluation. -- No evidence of eosinophilic esophagitis. 2. Colon, hepatic flexure, biopsy: -- Tubular adenoma. -- No high grade dysplasia or malignancy. CLINICAL HISTORY Screening/Surveillance for malignancy in asymptomatic patient; dysphagia POST-OPERATIVE DIAGNOSIS EGD: esophagus - normal; biopsy; gastric ??? normal; biopsy; duodenum ??? normal; colonoscopy: to cecum; hepatic flexure polyp ??? snare; diverticulosis GROSS DESCRIPTION 1. The specimen is received in formalin labeled, Biopsy Random Esophagus, and consists of a 0.5 x 0.4 x 0.1 cm aggregate of white-pink irregular soft tissue fragments which is submitted entirely in one cassette. 2. The specimen is received in formalin labeled, Hepatic Flexure Polyp, and consists of a 0.4 x 0.3 x 0.2 cm aggregate of corrigan-white irregular soft tissue fragments which is submitted entirely in one cassette. Signed by and Reported on: Natalia Schmitz MD 05/27/19 1230 END OF REPORT DEPARTMENT OF PATHOLOGY, [address] [place] [address] Jesse Connelly M.D. Director JOANNAK # [id number] Procedures Description No Information Available Medical Devices Description No Information Available Encounters Type Date Location Provider Dx Diagnosis Office Visit 04/17/2019 [facility]amy R10.84 Generalized 8:30a [facility], abdominal pain LANRE R13.10 Dysphagia, unspecified D64.9 Anemia, unspecified Z86.010 Personal history of colonic polyps Assessments Date Code Description Provider 04/17/2019 R10.84 Generalized abdominal pain Elham De La Rosa PA-C 04/17/2019 R13.10 Dysphagia, unspecified Elham De La Rosa PA-C 04/17/2019 D64.9 Anemia, unspecified Elham De La Rosa PA-C 04/17/2019 Z86.010 Personal history of colonic polyps Elham De La Rosa PA-C Plan of Treatment 04/17/2019 - BERT Coe10.84 Generalized abdominal painR13.10 Dysphagia, gdvbswbsykmE41.9 Anemia, wljqgpbppiaT95.010 Personal history of colonic polypsNew Medication:Peg 3350/Electrolytes 240 gm - use as directed Functional Status Description No Information Available Mental Status Description No Information Available Referrals Description No Information Available
--- OUTSIDE RECORDS SUMMARY | 2019-07-29 12:35 | XMS REPORT | Continuity of Care Document ---
:1960 External Reference #:[id number] Author Name Latanya Clark M.D. 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 [phone] Problems Active Problems Provider Date Localized, primary [...] 05/01/2019 Tab ER 12H Abuse-Det needed pain [place] take 1 tab by 30tabs Latanya Clark, [...] Test Result H/L Range Note Inr/Protime 07/21/2019 [facility] Inr 0.98 Normal 0.82-1.[address] [place] [address] [phone] Laboratory test 07/21/2019 [facility] Partial 36.8 seconds Normal 26.0-38.[address] [place] [facility] [place] [address] Time PTT [phone] Xray 04/18/2019 [facility] Inj/Aspir <pending> Major JT Or Bursa W/ US Inr/Protime 03/19/2019 [facility] Inr 0.97 Normal 0.82-1.09 2 , [address] [place] [address] [phone] Laboratory test 03/19/2019 [facility] Partial 32.7 seconds Normal 26.0-38.0 [address] [place] [address] Time PTT [phone] Type & Screen 03/19/2019 [facility] Patient AB Negative [address] [place] [place] [address] [phone] Antibody Screen NEGATIVE 1 Standard intensity warfarin therapeutic range: 2.0-3.0 High intensity warfarin therapeutic range: 2.5-3.5 2 PAIN IN LEFT KNEE, UNILATERAL PRIMARY OSTEOARTHRIT 3 Standard intensity warfarin therapeutic range: 2.0-3.0 High intensity warfarin therapeutic range: 2.5-3.5 4 AA 03/27 Procedures Date Code Description Status 04/18/2019 08168 Inj/Aspir Major JT Or Bursa W/ US Completed 03/27/2019 20260 TKR Total Knee Replacement Completed 03/27/2019 49579 TKR Total Knee Replacement Completed 02/17/2019 65917 Inject/Drain Joint/Bursa Major W/O US Completed Medical Devices Description No Information Available Encounters Type Date Location Provider Dx Diagnosis Office Visit 06/16/2019 [facility] Latanya Clark, Z96.652 [facility] Z47.1 Aftercare following joint replacement surgery M25.552 Pain in left hip M16.12 Unilateral primary osteoarthritis, left hip Office Visit 05/30/2019 [facility]ally K57.20 Dvtrcli of lg int 7:00a [facility] perforation and abscess w/o bleeding Office Visit 05/29/2019 [facility] K57.20 Dvtrcli of lg int 7:00a [facility] perforation and abscess w/o bleeding Office Visit 04/13/2019 [facility] N17.9 Acute kidney 10:04a Assoc,izabella Coy, BASKETBALL ASSEMBLER failure, Hospitalists unspecified R53.81 Other malaise N18.9 Chronic kidney disease, unspecified R10.9 Unspecified abdominal pain Office Visit 04/10/2019 [facility] Rosemary N17.9 Acute kidney 10:02a Assoc,PAMELLA Reeves failure, Hospitalists unspecified R53.81 Other malaise I12.9 Hypertensive chronic kidney disease w stg 1-4/unsp chr kdny N18.9 Chronic kidney disease, unspecified [facility] Assoc,izabella Johnson D.O. artificial knee Hospitalists joint I10 Essential (primary) hypertension R09.02 Hypoxemia G47.33 Obstructive sleep apnea (adult) (pediatric) Office Visit 03/10/2019 8:45a [facility] Latanya Clark, M25.562 Pain in left at [facility].D. knee M17.12 Unilateral primary osteoarthritis, left knee M25.462 Effusion, left knee Office Visit 02/06/2019 9:15a [facility] Iliana Granados M25.562 Pain in at [facility] PAMELLA Keene left knee M17.12 Unilateral primary osteoarthritis, left knee Office Visit 01/27/2019 8:00a [facility] Latanya Clark, M25.562 Pain in left at [facility].D knee M17.12 Unilateral primary osteoarthritis, left knee [...] N17.9 Acute kidney failure, unspecified Nupur Shortle, BASKETBALL ASSEMBLER 04/13/2019 R53.81 Other malaise Nupur Shortle, BASKETBALL ASSEMBLER 04/13/2019 N18.9 Chronic kidney disease, unspecified Nupur Shortle, BASKETBALL ASSEMBLER 04/13/2019 R10.9 Unspecified abdominal pain Nupur Shortle, BASKETBALL ASSEMBLER 04/12/2019 R53.81 Other malaise Nupur Shortle, BASKETBALL ASSEMBLER 04/12/2019 N17.9 Acute kidney failure, unspecified Nupur Shortle, BASKETBALL ASSEMBLER 04/12/2019 R10.9 Unspecified abdominal pain Nupur Shortle, BASKETBALL ASSEMBLER 04/11/2019 N17.9 Acute kidney failure, unspecified Rosemary Winter, PA 04/11/2019 R53.81 Other malaise Rosemary WinterPAMELLA 04/11/2019 I12.9 Hypertensive chronic kidney disease with [...] Johnson D.O. 03/27/2019 I10 Essential (primary) hypertension Alex LizO. [...] 2:45 pm - Latanya Clark M.D. at [facility] at Gyjeos0307/29/2019 4:30 pm - Harris Plaza PA-C at [facility] at Nutnwx6707/29/2019 4:30 pm - PAMELLA Valdez at [facility] at Ujjaxj7407/29/2019 4:30 pm - Latanya Clark M.D. at [facility] at Lmbogl3507/21/2019 - Latanya Clark M.D.M25.552 Pain in left hipFollow up:Follow up: 2 weeks after hlumzcyH58.12 Unilateral primary osteoarthritis, left hip Functional Status Description No Information Available Mental Status Description No Information Available Referrals Description No Information Available
--- OUTSIDE RECORDS SUMMARY | 2019-07-29 12:35 | XMS REPORT | Continuity of Care Document ---
:1960 External Reference #:[id number] Author Name Latanya Clark M.D. 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 Problems Active Problems Provider Date Localized, primary [...] a former smoker Unknown Smoking Status Reviewed: 06/16/19 Patient is a former smoker Exercise Type/Frequency [...] 05/01/2019 Tab ER 12H Abuse-Det needed pain [place] take 1 tab by 30tabs Latanya Clark, [...] Available Vital Signs Date Vital Result Comment 06/16/2019 8:00am Height 73 inches 6'1" Weight 266.00 lb Heart Rate 69 /min BP Systolic 150 mmHg BP Diastolic 96 mmHg Body Temperature 95.8 F Pain Level 2 BMI (Body Mass Index) 35.1 kg/m2 05/02/2019 8:05am Height 73 inches 6'1" Weight 275.00 lb Heart Rate 65 /min BP Systolic 132 mmHg BP Diastolic 72 mmHg Respiratory Rate 18 /min Body Temperature 97.0 F Pain Level 0 BMI (Body Mass Index) 36.3 kg/m2 Results Test Acquired Date Facility Test Result H/L Range Note Xray 04/18/2019 [facility] Inj/Aspir <pending> Major JT Or Bursa W/ US Inr/Protime 03/19/2019 [facility] Inr 0.97 Normal 0.82-1.09 1 , [address] [place] [address] [phone] Laboratory test 03/19/2019 [facility] Partial 32.7 seconds Normal 26.0-38.0 [address] [place] [address] Time PTT [phone] Type & Screen 03/19/2019 [facility] Patient AB Negative [address] [place] [address] [phone] Antibody Screen NEGATIVE 1 PAIN IN LEFT KNEE, UNILATERAL PRIMARY OSTEOARTHRIT 2 Standard intensity warfarin therapeutic range: 2.0-3.0 High intensity warfarin therapeutic range: 2.5-3.5 3 AA 03/27 Procedures Date Code Description Status 04/18/2019 48099 Inj/Aspir Major JT Or Bursa W/ US Completed 03/27/2019 36503 TKR Total Knee Replacement Completed 03/27/2019 04422 TKR Total Knee Replacement Completed 02/17/201930702 Inject/Drain Joint/Bursa Major W/O US Completed 01/13/201964179 Inject/Drain Joint/Bursa Major W/O US Completed Medical Devices Description No Information Available Encounters Type Date Location Provider Dx Diagnosis Office Visit [facility]2019 [facility] K57.20 Dvtrcli of lg int 7:00a Of [facility] Byrne PA-C w perforation and abscess w/o bleeding Office Visit 05/29/2019 [facility] K57.20 Dvtrcli of lg int 7:00a Of [facility] Byrne PA-C w perforation and abscess w/o bleeding Office Visit 03/27/2019 [facility] Lydia Johnson, Z96.652 Presence of left 10:13a Assoc,pc D.O. artificial knee Hospitalists joint I10 Essential (primary) hypertension R09.02 Hypoxemia G47.33 Obstructive sleep apnea (adult) (pediatric) Office Visit 03/10/2019 8:45a [facility] Latanya Clark M25.562 Pain in left at [place] M.DMarta knee M17.12 Unilateral primary osteoarthritis, left knee M25.462 Effusion, left knee Office Visit 02/06/2019 9:15a [facility] Granados M25.562 Pain in at PAMELLA Kat left knee M17.12 Unilateral primary osteoarthritis, left knee Office Visit 01/27/2019 8:00a [facility] Clark M25.562 Pain in left at [place] M.DMarta knee M17.12 Unilateral primary osteoarthritis, left knee M25.552 Pain in left hip M16.12 Unilateral primary osteoarthritis, left hip S83.242A Oth tear of medial meniscus, current injury, left knee, init Office Visit 01/13/2019 10:00a [facility] Latanya Clark, M25.562 Pain in left at [place] M.DMarta knee M17.12 Unilateral primary osteoarthritis, left knee M25.552 Pain in left hip M16.12 Unilateral primary osteoarthritis, left hip M23.8x2 Other internal derangements of left knee Assessments Date Code Description Provider 06/16/2019 Z96.652 Presence of left artificial knee [...] joint replacement Latanya Clark M.D. surgery 04/13/2019 R53.81 Other malaise Nupur Coy, CAR HOSTLER 04/12/2019 R53.81 Other malaise Nupur Coy, CAR HOSTLER 04/11/2019 R53.81 Other malaise PAMELLA Pablo 04/10/2019 Z96.652 Presence of left artificial knee joint Matias Hawthorne MD 04/10/2019 Z47.1 Aftercare following joint replacement Matias Hawthorne MD surgery 04/10/2019 R53.81 Other malaise PAMELLA Pablo 03/27/2019 Z96.652 Presence of left [...] Valdez 02/06/2019 M17.12 Unilateral primary osteoarthritis, left PAEMLLA Valdez knee 01/27/2019 M25.562 Pain in left [...] knee Latanya Clark M.D. Plan of Treatment 06/16/2019 - Latanya Clark M.D.Z96.652 Presence of left artificial knee jointFollow up:Follow up: for H&PZ47.1 Aftercare following joint replacement npxtgbsT60.552 Pain in left hipM16.12 Unilateral primary osteoarthritis, left hipFollow up:7-10 days before surgery Functional Status Description No Information Available Mental Status Description No Information Available Referrals Description No Information Available
[2019-07-29] MEDS ORDERED: ceFAZolin 2 GM in NS PREMIX(*) 2 GM/100 ML BAG IVPB ONE (13:26)
[2019-07-29] MEDS ORDERED: fentaNYL* 50 MCG/ML 2 ML VIAL (100 MCG VIAL) ONE ×3 (14:14→19:43)
[2019-07-29] MEDS ORDERED: Midazolam* 1 MG/ML 5 ML VIAL (5 MG) ONE (14:14)
[2019-07-29] MEDS ORDERED: ceFAZolin 1 GM ADVAN(*) 1 GM ADDV.VIAL IVPB ONE (14:57)
[2019-07-29] MEDS ORDERED: Dexamethasone IV* 4 MG/ML 1 ML (4 MG) ONE (16:25)
[2019-07-29] MEDS ORDERED: Ondansetron INJ* 2 MG/ML VIAL ONE (16:25)
[2019-07-29] MEDS ORDERED: Succinylcholine* 20 MG/ML 10 ML VIAL ONE (16:25)
[2019-07-29] MEDS ORDERED: Glycopyrrolate IV* 0.2 MG/ML 1 ML VIAL ONE (16:25)
[2019-07-29] MEDS ORDERED: Propofol* 10 MG/ML 20 ML BTL ONE (16:25)
[2019-07-29] MEDS ORDERED: Levalbuterol HFA INHALER* 1 PUFF MDI ONE (16:53)
[2019-07-29] MEDS ORDERED: ROPIVACAINE 5 MG/ML 30 ML BTL (0.5%) ONE (17:52)
[2019-07-29] MEDS ORDERED: Ondansetron TAB* 4 MG PO PRN (18:15)
[2019-07-29] MEDS ORDERED: diPHENhydraMINE IV* 50 MG/ML 1 ml VIAL (BENADRYL) IV PRN (18:15)
[2019-07-29] MEDS ORDERED: Ondansetron ODT TAB* 4 MG PO PRN (18:15)
[2019-07-29] MEDS ORDERED: Ondansetron INJ* 2 MG/ML VIAL IV PRN ×2 (18:15→18:41)
[2019-07-29] MEDS ORDERED: diPHENhydraMINE PO* 25 MG PO PRN (18:15)
[2019-07-29] MEDS ORDERED: Magnesium Hydroxide LIQ* 30 ML UDC PO PRN (18:15)
[2019-07-29] MEDS ORDERED: fentaNYL* 50 MCG/ML 2 ML VIAL (100 MCG VIAL) IV PRN (18:41)
[2019-07-29] MEDS ORDERED: Naloxone* 0.4 MG/ML 1 ML VIAL IV PRN (18:41)
[2019-07-29] MEDS ORDERED: Ketorolac INJ* 30 MG/ML 1 ML VIAL IV PRN (18:41)
--- NOTE | 2019-07-29 18:53 | OP ---
Operative Report - Blank - Operative Report Date of Operation: 07/29/19 Note: MARIAJOSE MALONE 1960 Date Of Surgery: 07/29/19 Latanya Clark MD Cloud Engagement Partner: Richie CAN did help throughout the procedure with preparation of the hip, wound retraction, manipulation of the hip, and wound closure. Anesthesiologist: Dr. Asif Anesthesia Type: Spinal/General Preoperative Diagnosis: Left severe degenerative osteoarthritis of the hip Postoperative Diagnosis: As above Procedure Performed: Left Total Hip Arthroplasty Complications: None Specimen: Femoral head and acetabular reamings sent to pathology. Hardware used: This is uncemented Derek total hip arthroplasty hardware for the femur a size 7 accolade II with 127 neck angle femoral component, for the acetabulum a size 56F trident II tritanium cluster hole shell, one 15mm screw, for the insert a size 40F trident X3 polyethylene insert, and for the femoral head a size 40 + 4 biolox ceramic V40 femoral head. Brief history/Indication: MARIAJOSE MALONE was known in clinic and had a history of severe left hip pain. He failed conservative treatment with anti- inflammatories, pain pills, intra-articular injections and physical therapy. He elected to undergo left total hip arthroplasty due to continued pain and decreased quality of life. Radiographs showed severe end stage osteoarthritis of the hip with bone on bone contact. Informed consent was obtained from the patient. He understood the risks of surgery included but were not limited to: bleeding, infection, damage to nearby structures, intraoperative fracture, nerve palsy, failure of the hardware, early loosening, stiffness or loss of motion, dislocation, leg length discrepancy, anesthesia complications, stroke, heart attack, blood clot and . He wished to proceed. Intra-Operative findings: Intraoperatively the patient was noted to have severe loss of cartilage of the acetabulum and femoral head. Description of the Procedure: MARIAJOSE MALONE was identified in the preanesthesia unit. His left hip was marked as the correct operative side. Informed consent was signed and placed in the chart. The patient was taken to the operating room and placed under anesthesia without complication. A kramer catheter was placed. The patient was placed on the peg board with all bony prominences well padded. The left lower extremity was prepped and draped in the usual sterile fashion. Preoperative time -out was made to correctly identify the patient, side and site. Appropriate intraoperative antibiotics were given within one hour of incision. A standard posterior incision was made and carried sharply down to the lateral fascia. A new 10 blade was used to make an incision in the fascia in line with the skin incision. A charnley retractor was placed. The piriformis and conjoined tendons were identified and elevated off the posterolateral femur using electrocautery. These were tagged with number 5 Ethibond. Next electrocautery was used to make a posterolateral capsular flap and this was tagged with number 5 Ethibonds. The hip was carefully dislocated. Lesser trochanter to the center of the femoral head was measured at 65 mm. The oscillating saw was used to make the femoral neck cut. The femoral head was carefully removed. The femur was retracted anteriorly and the acetabular retractors were placed. Long-handled knife was used to sharply remove any remaining labrum from the acetabular rim. The acetabulum was sequentially reamed up to a size 56. A bleeding subchondral bone bed was obtained. A trial liner was placed and had excellent fit and stability. A 56F cup with one screw was placed and had excellent stability with appropriate anteversion and abduction angle. A size 40F liner was impacted into the acetabular shell. The liner was checked for stability and was stable. Next attention was turned to preparation of the femoral canal. A canal finder was used to enter the proximal femur. The femoral canal was sequentially broached up to a size 7 femoral broach trial. A trial neck and 40 +4 trial femoral head was chosen. Lesser trochanter to center of the femoral head measurement was satisfactory. The hip was reduced and taken through a range of motion. The hip was stable in all positions with good soft tissue tension and appropriate leg lengths. The hip was dislocated and all trials were removed. The final implant chosen was a accolade II size 7. This stem was impacted into the femoral canal without difficulty. The stem was stable with appropriate anteversion. The femoral head chosen was a 40 + 4 ceramic head. The head was impacted onto the femoral neck without difficulty. The final lesser trochanter to center of the femoral head measurement was satisfactory. The hip was reduced and taken through a range of motion. The hip was stable in all positions with good soft tissue tension and appropriate leg lengths. The hip was copiously irrigated with sterile saline. The previously tagged capsule and tendons were repaired to the posterolateral femur through two trochanteric drill holes. The lateral fascia layer was closed using number 1 vicryls. The rest of the incision was closed in a layered fashion using 0 and 2-0 vicryls. The skin was closed using 3-0 monocryl suture and Dermabond. Sterile adaptic, 4x4s and paper tape was used to cover the incision. The patients anesthesia was reversed without difficulty. He was taken to the PACU in stable condition. Intended weight-bearing will be as tolerated with posterior hip precautions.
[2019-07-29] MEDS ORDERED: traMADol TAB* 50 MG ONE (19:27)
[2019-07-29] MEDS ORDERED: Ketorolac INJ* 30 MG/ML 1 ML VIAL ONE (19:27)
[2019-07-29] MEDS: traMADol TAB* 50 MG PO PRN (19:29)
--- NOTE | 2019-07-29 20:05 | CONS ---
CONSULTATION REPORT: DATE OF CONSULT: 07/29/19 CONSULTING PROVIDER: Stephane Abrams MD REQUESTING SERVICE: Dr. Clark of Orthopedics. REASON FOR CONSULT: Medical co-morbidity management, specifically hypertension , BPH, history of TANIA, right bundle branch block, chronic low back pain, in the setting of elective left total hip replacement. HISTORY OF PRESENT ILLNESS: Jonh Tracey is a 58-year-old male with past medical history of hypertension, BPH, transient TANIA in the setting of some nephrotoxic agents a few months ago, right bundle branch block, who has been seen in the PACU after his elective left total hip replacement. He is without complaint, not complaining of any pain. His blood pressure medications which had included hydrochlorothiazide 25 mg, lisinopril 40 mg, and spironolactone 12.5 mg back in the beginning of April had been held. He is now currently on lisinopril 20/hydrochlorothiazide 12.5 mg b.i.d., metoprolol tartrate 50 mg p.o. b.i.d., and prazosin 5 mg q.h.s. He exercises without ever getting short of breath or having chest pain. 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 PAST MEDICAL HISTORY: Hypertension, BPH, TANIA, right bundle branch block, chronic low back pain. FAMILY HISTORY: His father is likely still alive, though they have lost contact , has multiple medical conditions. His mother of liver cancer at age 78. SOCIAL HISTORY: The patient is a former smoker, who quit greater than 10 years ago. He smoked on and off mostly less than 1 pack per day and cannot estimate how many years in total. Denies any alcohol use. He is retired, formally worked at [employer] in the [employer]. REVIEW OF SYSTEMS: A complete 14-point review of systems negative except as per HPI. PHYSICAL EXAM: General Appearance: No acute distress. Temperature 95.9, pulse rate 65, respiratory rate 14, satting 96% on 2 L, blood pressure 137/78. HEENT: Normocephalic, atraumatic. Pupils are equal, round, and reactive to light. Extraocular motions intact. No scleral icterus. Lungs: Anteriorly clear to auscultation with no wheezing, rales, or rhonchi. Cardiovascular: Regular rate and rhythm. No murmurs, rubs, or gallops. Abdomen: Soft, nontender, nondistended. Extremities: Warm, well perfused. No peripheral edema. DIAGNOSTIC STUDIES/LAB DATA: Labs: None. Most recent creatinine was 1.04 on 07/17/19 in preoperative workup. Imaging: He is about to have postoperative hip x-rays. His intraoperative hip x- ray showed expected subcutaneous emphysema. The anatomic alignment is maintained. No periprosthetic fracture. ASSESSMENT AND PLAN: John Tracey is a 58-year-old male with past history of acute kidney injury, hypertension, benign prostatic hypertrophy, right bundle branch block, now status post left total hip replacement. For his hypertension , we will be continuing him on metoprolol tartrate 50 mg p.o. b.i.d. and lisinopril 20 mg/hydrochlorothiazide 12.5 mg p.o. b.i.d. Rest of the management per surgery team. Thank you for this interesting consult. We will follow up labs in the morning. [id number]/[facility] #: [id number] DINO
[2019-07-29] MEDS: Lactated Ringers 1000 ML Bag* 1,000 ML IV SCH (20:51)
[2019-07-29] MEDS: Metoprolol Tartrate TAB* 50 mg PO SCH (21:12)
[2019-07-29] MEDS: Magnesium Hydroxide LIQ* 30 ML UDC PO SCH (21:12)
[2019-07-29] MEDS: Docusate CAP* 100 MG PO SCH (21:12)
[2019-07-29] MEDS ORDERED: Prazosin CAP* 5 MG PO SCH (21:30)
[2019-07-29] MEDS: oxyCODONE/Acetamin 5/325 MG* TAB PO PRN (22:20)
[2019-07-29] MEDS: Acetaminophen TAB* 325 MG PO SCH (22:22)
[2019-07-29] MEDS: Morphine INJ* 2 MG/ML 1 ML SYRINGE (TWO MG - NEW SYRINGE VERSION) IV PRN (23:52)
[2019-07-29] MEDS: Cyclobenzaprine TAB* 10 MG PO PRN (23:53)
[2019-07-30] MEDS: oxyCODONE TAB* 5 MG TAB PO PRN ×3 (00:32→16:43)
[2019-07-30] MEDS: ceFAZolin 1 GM ADVAN(*) 1 GM in NS 0.9% 50 ML* 50 ML IVPB SCH ×3 (00:33→16:38)
[2019-07-30] MEDS: traMADol TAB* 50 MG PO PRN ×3 (01:04→22:45)
[2019-07-30] MEDS ORDERED: HYDROmorphone INJ1* 1 MG/ML SYRINGE IV SLOW PU ONE (01:39)
[2019-07-30] MEDS: oxyCODONE/Acetamin 5/325 MG* TAB PO PRN ×3 (03:29→22:46)
[2019-07-30] MEDS: Morphine INJ* 2 MG/ML 1 ML SYRINGE (TWO MG - NEW SYRINGE VERSION) IV PRN (03:29)
[2019-07-30] MEDS: Acetaminophen TAB* 325 MG PO SCH ×3 (06:11→20:45)
[2019-07-30 06:35] LABS: Hematocrit 35 % (42-52); Platelet Count 218 10^3/uL (150-450)
[2019-07-30 06:39] LABS: BUN/Creatinine Ratio 23.3 (8-20); Calcium 8.6 mg/dL (8.6-10.3); EGFR African American 68.7 (>60); EGFR Non-African American 56.8 (>60); Potassium 4.6 mmol/L (3.5-5.0)
[2019-07-30] MEDS ORDERED: Morphine TAB Extended Release (*) 30 MG TAB.ER PO SCH (07:00)
[2019-07-30] MEDS: Morphine TAB Extended Release (*) 30 MG TAB.ER PO SCH ×2 (07:07→20:00)
[2019-07-30] MEDS: Lactated Ringers 1000 ML Bag* 1,000 ML IV SCH (07:08)
[2019-07-30] MEDS: Metoprolol Tartrate TAB* 50 mg PO SCH ×2 (08:53→20:00)
[2019-07-30] MEDS: Lisinopril TAB* 10 MG PO SCH (08:53)
[2019-07-30] MEDS: Docusate CAP* 100 MG PO SCH ×2 (08:53→20:00)
[2019-07-30] MEDS: Apixaban* 2.5 MG TAB PO SCH ×2 (08:54→20:00)
[2019-07-30] MEDS: Vitamin THERAPEUTIC TAB PO SCH (08:54)
[2019-07-30] MEDS: Magnesium Hydroxide LIQ* 30 ML UDC PO SCH ×2 (08:55→20:00)
[2019-07-30] MEDS ORDERED: Hydrochlorothiazide TAB* 25 MG PO SCH (09:00)
--- NOTE | 2019-07-30 09:53 | PN ---
Progress Note - Progress Note Date of Service: 07/30/19 SOAP: Subjective: []Pt seen at bedside. He is having a great deal of left hip pain, MS kaitlyn was added this morning. Last total joint replacement he used long acting narcotics in addition to oxycodone 10 mg q 4 hours. Denies CP, SOB, dizziness, nausea. This morning he had an episode of lightheadedness with SBP in the high 90s without associated cp, sob, abd pain, nausea and resolved with reclined seat. BP improved without intervention aside from rest. Objective: []Gen: NAD, sitting comfortably in a recliner. LLE: Left hip dressing CDI, thigh soft, df/pf intact, dp2+, sensation intact to light touch distally Calves supple and nontender without erythema, edema or palpable cords Assessment: []pod 1 sp left total hip replacement Plan: []WBAT PT. OT eliquis 2.5 mg po BID x 30 days post op Monitor BP, encourage PO fluids Cont MS kaitlyn with oxycodone, hold for sedation Vital Signs Temp 98.8 F 07/30/19 08:52 Pulse 73 07/30/19 08:52 Resp 18 07/30/19 08:53 BP 124/62 07/30/19 09:41 Pulse Ox 97 07/30/19 08:52 Intake & Output 07/29/19 07/30/19 07/30/19 18:59 06:59 18:59 Intake Total 1999 600 1030 Output Total 475 Balance 5217 082 7555 Weight 266 lb 12.8 oz Intake: IV Fluids 2000 980 LR 2000 980 IVPB 50 ABX - CEFAZOLIN 50 Oral 600 Output: Cobian 225 Estimated Blood Loss 250 Laboratory Last Values Hgb 12.0 g/dL (14.0-18.0) L 07/30/19 06:14 Hct 35 % (42-52) L 07/30/19 06:14 Plt Count 218 10^3/uL (150-450) 07/30/19 06:14 MPV 8.0 fL (7.4-10.4) 07/30/19 06:14 Sodium 139 mmol/L (135-145) 07/30/19 06:14 Potassium 4.6 mmol/L (3.5-5.0) 07/30/19 06:14 Chloride 105 mmol/L (101-111) 07/30/19 06:14 Carbon Dioxide 27 mmol/L (22-32) 07/30/19 06:14 Anion Gap 7 mmol/L (2-11) 07/30/19 06:14 BUN 30 mg/dL (6-24) H 07/30/19 06:14 Creatinine 1.29 mg/dL (0.67-1.17) H 07/30/19 06:14 Est GFR ( Amer) 68.7 (>60) 07/30/19 06:14 Est GFR (Non-Af Amer) 56.8 (>60) 07/30/19 06:14 BUN/Creatinine Ratio 23.3 (8-20) H 07/30/19 06:14 Glucose 124 mg/dL (70-100) H 07/30/19 06:14 Calcium 8.6 mg/dL (8.6-10.3) 07/30/19 06:14
[2019-07-30] MEDS ORDERED: HYDROmorphone INJ1* 1 MG/ML SYRINGE IV SLOW PU PRN (12:39)
[2019-07-30] MEDS ORDERED: Ondansetron INJ* 2 MG/ML VIAL IV PRN (13:06)
--- NOTE | 2019-07-30 13:06 | PN ---
Subjective Date of Service: 07/30/19 Interval History: Hypotenisve and diaphoretic standing with PT this AM. Continued nausea/upset stomach during day. kramer pulled at 5:30 am, no void yet but with suprapubic discomfort and 320 on bladder scan. Similar thing happened with one of his knee surgeries and issue resolved after 1 straight cath. 9/10 pain in left hip Objective Active Medications: Acetaminophen (Tylenol Tab*) 975 mg PO Q8HR [facility] Last Admin: 07/30/19 12:20 Dose: Not Given Apixaban (Eliquis*) 2.5 mg PO BID [facility] Last Admin: 07/30/19 08:54 Dose: 2.5 mg Bisacodyl (Dulcolax Supp*) 10 mg KS DAILY PRN PRN Reason: CONSTIPATION Cyclobenzaprine HCl (Flexeril Tab*) 10 mg PO Q6H PRN PRN Reason: SPASMS Last Admin: 07/29/19 23:53 Dose: 10 mg Diphenhydramine HCl (Benadryl Iv*) 25 mg IV Q6H PRN PRN Reason: PRURITIS Diphenhydramine HCl (Benadryl Po*) 25 mg PO Q6H PRN PRN Reason: PRURITIS Docusate Sodium (Colace Cap*) 100 mg PO BID [facility] Last Admin: 07/30/19 08:53 Dose: 100 mg Hydrochlorothiazide (Hydrodiuril Tab*) [facility] [facility] [place] [facility] Admin: 07/30/19 08:54 Dose: 12.5 mg Hydromorphone HCl (Dilaudid Inj1s*) 1 mg IV SLOW PU Q4H PRN PRN Reason: breakthrough pain Cefazolin Sodium 1 gm/ Sodium (Chloride) 50 mls @ 200 mls/hr IVPB Q8H [facility] Stop: 07/30/19 16:14 Last Admin: 07/30/19 07:07 Dose: 200 mls/hr Lactated Ringer's (Lactated Ringers 1000 Ml Bag*) 1,000 mls @ 100 mls/hr IV PER RATE [facility] Last Admin: 07/30/19 07:08 Dose: 100 mls/hr Lactulose (Lactulose*) 30 ml PO BID PRN PRN Reason: CONSTIPATION Lisinopril (Prinivil Tab*) 20 mg PO QAM [facility] Last Admin: 07/30/19 08:53 Dose: 20 mg Magnesium Hydroxide (Milk Of Magnesia Liq*) 30 ml PO BID [facility] Last Admin: 07/30/19 08:55 Dose: 30 ml Magnesium Hydroxide (Milk Of Magnesia Liq*) 30 ml PO Q6H PRN PRN Reason: CONSTIPATION Metoprolol Tartrate (Lopressor Tab*) 50 mg PO BID [facility] Last Admin: 07/30/19 08:53 Dose: 50 mg Morphine Sulfate (Ms Contin(*)) 30 mg PO [facility] Last Admin: 07/30/19 07:07 Dose: 30 mg Multivitamins (Theragran Tab*) 1 tab PO DAILY [facility] Last Admin: 07/30/19 08:54 Dose: 1 tab Ondansetron HCl (Zofran Inj*) 4 mg IV Q6H PRN PRN Reason: NAUSEA Ondansetron HCl (Zofran Odt Tab*) 4 mg PO Q6H PRN PRN Reason: NAUSEA Last Admin: 07/30/19 11:28 Dose: 4 mg Ondansetron HCl (Zofran Tab*) 4 mg PO Q6H PRN PRN Reason: NAUSEA Oxycodone HCl (Roxycodone Tab*) 10 mg PO Q4H PRN PRN Reason: Pain - Breakthrough Last Admin: 07/30/19 07:14 Dose: 10 mg Oxycodone/Acetaminophen (Percocet 5/325 Tab*) 2 tab PO Q4H PRN PRN Reason: PAIN - SEVERE Last Admin: 07/30/19 03:29 Dose: 2 tab Polyethylene Glycol/Electrolytes (Miralax*) 17 gm PO DAILY PRN PRN Reason: Constipation Prazosin HCl (Minipress Cap*) 5 mg PO BEDTIME [facility] Tramadol HCl (Ultram*) 50 mg PO Q6H PRN PRN Reason: PAIN - MODERATE Last Admin: 07/30/19 08:53 Dose: 50 mg Vital Signs - 8 hr 07/30/19 07/30/19 07/30/19 07:07 07:14 07:22 Temperature Pulse Rate Respiratory 18 18 18 Rate Blood Pressure (mmHg) O2 Sat by Pulse Oximetry 07/30/19 07/30/19 07/30/19 08:52 08:53 09:15 Temperature 98.8 F Pulse Rate 73 Respiratory 16 18 Rate Blood Pressure 121/73 97/59 (mmHg) O2 Sat by Pulse 97 Oximetry 07/30/19 07/30/19 07/30/19 09:41 11:29 12:50 Temperature 98.9 F Pulse Rate 67 Respiratory 20 16 Rate Blood Pressure 124/62 123/69 (mmHg) O2 Sat by Pulse 97 Oximetry Oxygen Devices in Use Now: None Appearance: sitting in chair. mild distress Eyes: No Scleral Icterus, PERRLA Ears/Nose/Mouth/Throat: NL Teeth, Lips, Gums Respiratory: Symmetrical Chest Expansion and Respiratory Effort, Clear to Auscultation Cardiovascular: NL Sounds; No Murmurs; No JVD, RRR Abdominal: NL Sounds; No Tenderness; No Distention, No Hepatosplenomegaly Extremities: No Edema Skin: No Rash or Ulcers Neurological: Alert and Oriented x 3, NL Sensation Nutrition: Taking PO's Result Diagrams: 07/30/19 06:14 07/30/19 06:14 Additional Lab and Data: Laboratory Results - last 24 hr 07/30/19 07/30/19 06:14 06:14 Hgb 12.0 L Hct 35 L Plt Count 218 MPV 8.0 Sodium 139 Potassium 4.6 Chloride 105 Carbon Dioxide 27 Anion Gap 7 BUN 30 H Creatinine 1.29 H Est GFR ( Amer) 68.7 Est GFR (Non-Af Amer) 56.8 BUN/Creatinine Ratio 23.3 H Glucose 124 H Calcium 8.6 Assess/Plan/Problems-Billing Assessment: 58 yo male PMH HTN, BPH, OA, RBB presents for elective left hip replacement. Medicine Service consulted to help manage HTN, urinary retention. # HTN continue metoprolol BID continue lisinopril 20 mg continue HCTZ repeat BMP in AM #Urinary retention continue prazosin straight cath for elevated post void residuals or inability to void.
[2019-07-30] MEDS: Prazosin CAP* 5 MG PO SCH (20:44)
[2019-07-31] MEDS: oxyCODONE TAB* 5 MG TAB PO PRN ×3 (01:21→13:18)
[2019-07-31 05:26] LABS: Hematocrit 30 % (42-52); Hemoglobin 10.4 g/dL (14.0-18.0); Mean Platelet Volume 7.8 fL (7.4-10.4); Platelet Count 201 10^3/uL (150-450)
[2019-07-31 05:45] LABS: BUN/Creatinine Ratio 19.1 (8-20); Calcium 8.4 mg/dL (8.6-10.3); EGFR African American 78.5 (>60); EGFR Non-African American 64.9 (>60)
[2019-07-31] MEDS: oxyCODONE/Acetamin 5/325 MG* TAB PO PRN ×3 (06:24→17:16)
[2019-07-31] MEDS: Acetaminophen TAB* 325 MG PO SCH ×3 (06:39→21:06)
[2019-07-31] MEDS: Morphine TAB Extended Release (*) 30 MG TAB.ER PO SCH ×2 (07:27→21:05)
[2019-07-31] MEDS: Magnesium Hydroxide LIQ* 30 ML UDC PO SCH ×2 (08:37→21:08)
[2019-07-31] MEDS: Vitamin THERAPEUTIC TAB PO SCH (08:38)
[2019-07-31] MEDS: Lisinopril TAB* 10 MG PO SCH (08:38)
[2019-07-31] MEDS: Docusate CAP* 100 MG PO SCH ×2 (08:38→21:06)
[2019-07-31] MEDS: Metoprolol Tartrate TAB* 50 mg PO SCH ×2 (08:38→21:05)
[2019-07-31] MEDS: Apixaban* 2.5 MG TAB PO SCH ×2 (08:38→21:04)
[2019-07-31] MEDS: Polyethylene Glycol 3350* 17 GM PACKET PO PRN (08:41)
--- NOTE | 2019-07-31 10:33 | PN ---
Progress Note - Progress Note Date of Service: 07/31/19 SOAP: Subjective: []Pt seen at bedside. He is in no pain at rest but has severe pain with ROM or weightbearing on the left hip. Denies CP, SOB, dizziness or nausea. Straight cath required yesterday, urinating since without difficulty. Objective: []Gen: NAD, laying comfortably in bed LLE: Left hip dressing changed, incision is CDI, thigh soft, df/pf intact, dp2+ , sensation intact to light touch distally Calves supple and nontender without erythema, edema or palpable cords Assessment: []POD 2 SP left total hip replacement Plan: []WBAT PT eliquis 2.5 mg po BID x 30 days post op No fracture or dislocation on xrays. CM made aware patient may need rehab due to lack of progress with PT. Anticipate he will DC to home or rehab tomorrow depending on progress with PT Vital Signs Temp 98.1 F 07/31/19 07:46 Pulse 57 07/31/19 07:46 Resp 20 07/31/19 08:38 BP 116/63 07/31/19 07:46 Pulse Ox 96 07/31/19 08:00 Intake & Output 07/30/19 07/31/19 07/31/19 18:59 06:59 18:59 Intake Total 2069 1740 Output Total 350 700 250 Balance 1719 1040 -250 Intake: IV Fluids 1903 LR 1903 IVPB 166 ABX - CEFAZOLIN 166 Oral 1740 Output: Urine 700 250 Straight Cath 350 Other: Estimated Void Small Medium # Voids 1 1 Laboratory Last Values Hgb 10.4 g/dL (14.0-18.0) L 07/31/19 05:04 Hct 30 % (42-52) L 07/31/19 05:04 Plt Count 201 10^3/uL (150-450) 07/31/19 05:04 MPV 7.8 fL (7.4-10.4) 07/31/19 05:04 Sodium 136 mmol/L (135-145) 07/31/19 05:04 Potassium 4.0 mmol/L (3.5-5.0) 07/31/19 05:04 Chloride 103 mmol/L (101-111) 07/31/19 05:04 Carbon Dioxide 28 mmol/L (22-32) 07/31/19 05:04 Anion Gap 5 mmol/L (2-11) 07/31/19 05:04 BUN 22 mg/dL (6-24) 07/31/19 05:04 Creatinine 1.15 mg/dL (0.67-1.17) 07/31/19 05:04 Est GFR ( Amer) 78.5 (>60) 07/31/19 05:04 Est GFR (Non-Af Amer) 64.9 (>60) 07/31/19 05:04 BUN/Creatinine Ratio 19.1 (8-20) 07/31/19 05:04 Glucose 102 mg/dL (70-100) H 07/31/19 05:04 Calcium 8.4 mg/dL (8.6-10.3) L 07/31/19 05:04
[2019-07-31] MEDS ORDERED: Bisacodyl SUPP* 10 MG SUPP PR PRN (18:15)
[2019-07-31] MEDS: Prazosin CAP* 5 MG PO SCH (21:07)
[2019-08-01] MEDS: Polyethylene Glycol 3350* 17 GM PACKET PO PRN ×2 (00:58→13:10)
[2019-08-01] MEDS: Cyclobenzaprine TAB* 10 MG PO PRN (01:29)
[2019-08-01] MEDS: traMADol TAB* 50 MG PO PRN (01:29)
[2019-08-01] MEDS: oxyCODONE/Acetamin 5/325 MG* TAB PO PRN (06:48)
[2019-08-01] MEDS: Acetaminophen TAB* 325 MG PO SCH ×3 (06:50→22:24)
[2019-08-01 07:16] LABS: Hematocrit 25 % (42-52); Hemoglobin 8.6 g/dL (14.0-18.0); Mean Platelet Volume 7.7 fL (7.4-10.4); Platelet Count 162 10^3/uL (150-450)
[2019-08-01] MEDS: Lactated Ringers 1000 ML Bag* 1,000 ML IV SCH (07:58)
[2019-08-01] MEDS ORDERED: NS 0.9% 1000 ML** 1,000 ML IV ONE (08:26)
[2019-08-01] MEDS: Vitamin THERAPEUTIC TAB PO SCH (09:47)
[2019-08-01] MEDS: Magnesium Hydroxide LIQ* 30 ML UDC PO SCH ×3 (09:47→22:12)
[2019-08-01] MEDS: Docusate CAP* 100 MG PO SCH ×2 (09:47→22:11)
[2019-08-01] MEDS: oxyCODONE TAB* 5 MG TAB PO PRN ×3 (13:09→22:19)
[2019-08-01] MEDS: Morphine TAB Extended Release (*) 30 MG TAB.ER PO SCH ×2 (15:58→19:30)
--- NOTE | 2019-08-01 16:56 | PN ---
Progress Note - Progress Note Date of Service: 08/01/19 SOAP: Subjective: Pt seen at bedside. He is in no pain at rest but has increased pain with ROM or weightbearing on the left hip. Denies CP, SO. This morning the pts BP was found to be 86/47 with a H&H of 8.6 and 25. The pt was feel unwell at the time He complained of light-headedness and dizzy. Pt was diaphoretic. 2 units of blood were ordered for the pt. He is currently getting the second unit. He states that he has been improving but he continues to have pain. Objective: []Gen: NAD LLE: Left hip dressing c/d/i dp2+, sensation intact to light touch distally Calves supple and nontender without erythema, edema or palpable cords Vital Signs Temp 99.4 F 08/01/19 15:52 Pulse 75 08/01/19 15:52 Resp 20 08/01/19 15:52 BP 89/52 08/01/19 15:52 Pulse Ox 98 08/01/19 15:52 Intake & Output 07/31/19 08/01/19 08/01/19 18:59 06:59 18:59 Intake Total 102 334 5750 Output Total 900 200 0 Balance -774 244 8156 Intake: Oral 108 266 5547 Packed Cells 300 Output: Urine 900 200 0 Other: Estimated Void Medium Large # Voids 1 1 Assessment: []POD 3 SP left total hip replacement Plan: []2 units of PRBCs today WBAT PT eliquis held No fracture or dislocation on xrays. Will continue to monitor vitals for improvement.
[2019-08-01] MEDS: Prazosin CAP* 5 MG PO SCH (22:12)
[2019-08-02] MEDS: oxyCODONE/Acetamin 5/325 MG* TAB PO PRN ×3 (00:55→11:55)
[2019-08-02] MEDS: Acetaminophen TAB* 325 MG PO SCH (05:27)
[2019-08-02 05:47] LABS: Hematocrit 28 % (42-52); Hemoglobin 9.7 g/dL (14.0-18.0); Mean Platelet Volume 7.5 fL (7.4-10.4); Platelet Count 199 10^3/uL (150-450)
[2019-08-02 06:04] LABS: BUN/Creatinine Ratio 21.9 (8-20); Calcium 8.7 mg/dL (8.6-10.3); EGFR African American 50.3 (>60); EGFR Non-African American 41.6 (>60); Potassium 4.4 mmol/L (3.5-5.0)
[2019-08-02] MEDS: oxyCODONE TAB* 5 MG TAB PO PRN (08:48)
[2019-08-02] MEDS: Magnesium Hydroxide LIQ* 30 ML UDC PO SCH (08:48)
[2019-08-02] MEDS: Morphine TAB Extended Release (*) 30 MG TAB.ER PO SCH (08:49)
[2019-08-02] MEDS: Docusate CAP* 100 MG PO SCH (08:49)
[2019-08-02] MEDS: Vitamin THERAPEUTIC TAB PO SCH (08:49)
--- NOTE | 2019-08-02 10:35 | PN ---
Progress Note - Progress Note Date of Service: 08/02/19 SOAP: Subjective: Pt seen at bedside. He feels overall better today. Pain is better managed. Denies CP, SOB. He states that he would like to go home today. Objective: []Gen: NAD LLE: Left hip dressing c/d/i, dressing changed, incision is c/d/i. dp2+, sensation intact to light touch distally Calves supple and nontender without erythema, edema or palpable cords Vital Signs Temp 97.1 F 08/02/19 08:28 Pulse 81 08/02/19 08:28 Resp 16 08/02/19 08:49 BP 126/65 08/02/19 08:28 Pulse Ox 98 08/02/19 08:28 Intake & Output 08/01/19 08/02/19 08/02/19 18:59 06:59 18:59 Intake Total 1440 980 Output Total 0 500 Balance 1440 480 Intake: Oral 1140 980 Packed Cells 300 Output: Urine 0 500 Other: Estimated Void Large Medium # Bowel Movements 1 Estimated Stool Amount Small # Voids 1 1 Assessment: []POD 4 SP left total hip replacement Plan: [] WBAT PT oniel held Lovenox to start tomorrow No fracture or dislocation on xrays. . Vitals have improved DC home today
--- NOTE | 2019-08-02 10:43 | DS ---
Orthopedic Discharge Summary - Discharge Summary Date of Admission:07/29/19 Date of Discharge: 08/02/2019 Date of Surgery: 07/29/2019 Attending Orthopedic Provider: Dr. Clark Pre-operative Diagnosis: Left hip osteoarthritis Operative Procedure: Left total hip replacement Disposition of Patient: Home Condition of Patient: Good History: MARIAJOSE MALONE is a 58 year old M with years of increasingly severe left hip pain. Patient has failed conservative management and has elected to undergo a left total hip replacement Hospital Course: MARIAJOSE was admitted to [facility] on 07/29/19. Patient underwent a left total hip replacement without complication followed by a brief recovery in PACU and transfer to the Short Stay Surgical Unit in stable condition. Our hospitalist service, physical therapy and occupational therapy also participated in this patients care. Post-op day 1: patient was alert and in no acute distress. Dressing was clean, dry and intact. Operative extremity dorsiflexion and plantarflexion intact, sensation intact to light touch distally , DP2+. Post-op day two: dressing was changed, incision was clean, dry and intact.Operative extremity dorsiflexion and plantarflexion intact, sensation intact to light touch distally, DP2+. At this point he was making slow progress with PT. POD 3 the pts had an episode of dizziness, nausea and became diaphoretic. The pts BP was 86/47 with a H&H of 8.6 and 25. Xray readings showed concern for a hematoma in the hip. The pt was given 2 units of blood. POD 4 the pts vitals improved. Patient was deemed to be medically and orthopedically stable for discharge. Physical therapy goals were met. Home Medications Medication Instructions Recorded Confirmed Type Lisinopril/Hydrochlorothiazide 1 each PO QAM 07/21/19 07/29/19 History [Lisinopril-Hctz 20-12.5 mg Tab] Metoprolol Tartrate 50 mg PO BID 07/29/19 07/29/19 History Prazosin CAP* 5 mg PO BEDTIME 07/29/19 07/29/19 History oxyCODONE/Acetamin 5/325 MG* 2 tab PO Q4H PRN tab 08/02/19 Rx [Percocet 5/325 TAB*] Discharge Instructions following Orthopedic Surgery: Activity: * Weight Bearing as tolerated * Continue physical therapy and occupational therapy exercises as shown Hip replacements: Continue Hip Precautions- do not cross legs or bend greater than 90 degrees/squat Wound care: * OK to shower on post-op day 3, no bathing, swimming, or submerging wound. * Use gentle soap, pat dry. Cover with gauze, NIKKI wrap or tape. * Visiting home nurse to do wound checks. Call Orthopedic office for: * Increased drainage * Redness * Increased pain * Fever Go to ER with shortness of breath or chest pain. Diet: * Regular diet * Increase fluids and fiber to prevent constipation. * Continue to use stool softeners, call office if no bowel motion within 48 hours. Medications See Home Medication List in your packet for medications that you should take after discharge. DVT Prophylaxis: Lovenox Dosing: [40] mg twice a day Pain Control: Percocet Dosin/325 mg 1-2 tabs by mouth every 4-6 hours as needed for pain. Maximum of 10 tabs per day. MS Contin 30mg 1 tab every 12 hours as needed for pain Please note that Percocet contains Tylenol (acetaminophen). Maximum daily dose of Tylenol is 4000 mg from all sources. Antibiotics are required prior to any dental work. FOLLOW UP: Follow up with [Reinaldo] on Sunday, call for appointment Please call our office with any questions or concerns ([phone])
[2019-08-02 11:56] VITALS: BP 117/58
== END 2019-08-02 12:30 | disposition home health service (06) | DRG 301 ==
LOC: AA 12:31 → SSU 20:19
PROVIDERS: ADMIT Orthopaedic Surgery Adult Reconstructive Orthopaedic Surgery; ATTEND Orthopaedic Surgery Adult Reconstructive Orthopaedic Surgery
PROC: 0SRB04A Replacement of Left Hip Joint with Ceramic on Polyethylene Synthetic Substitute, Uncemented, Open Approach (ICD-10-PCS; principal; 2019-07-29 15:45)
PROC: 30233N1 Transfusion of Nonautologous Red Blood Cells into Peripheral Vein, Percutaneous Approach (ICD-10-PCS; 2019-08-01)
DX: M16.12 Unilateral primary osteoarthritis, left hip (principal); N40.0 Benign prostatic hyperplasia without lower urinary tract symptoms; I12.9 Hypertensive chronic kidney disease with stage 1 through stage 4 chronic kidney disease, or unspecified chronic kidney disease; N18.9 Chronic kidney disease, unspecified; I45.10 Unspecified right bundle-branch block; Z96.653 Presence of artificial knee joint, bilateral; G25.81 Restless legs syndrome; N28.1 Cyst of kidney, acquired; E78.00 Pure hypercholesterolemia, unspecified; K57.30 Diverticulosis of large intestine without perforation or abscess without bleeding; M54.5 Low back pain; G89.29 Other chronic pain; I95.9 Hypotension, unspecified; R11.0 Nausea; R33.9 Retention of urine, unspecified; R42 Dizziness and giddiness; Z87.891 Personal history of nicotine dependence
CPT/HCPCS: 36415; 72170; 80048; 85014; 85018; 85049; 86850; 86900; 86901; 86922; A9270-GY; C1713; C1776; J0330; J0690; J1100; J1170; J1885; J2250; J2270; J2405; J2704; J2795; J3010; P9040

== ENCOUNTER 2019-10-16 02:02 | Emergency (ER) | payer BC ==
--- OUTSIDE RECORDS SUMMARY | 2019-10-16 04:28 | XMS REPORT ---
:1960 Author Organization [facility] Care Team Providers Name Role Phone Unavailable Unavailable Unavailable Problems This patient has no known problems. Allergies, Adverse Reactions, Alerts Allergy Allergy Status Severity Reaction(s) Onset Inactive Treating Comments Name Type Date Date Clinician Uncoded Unknown Active Unknown Reaction 2019-07 Interface free-text -20 allergy Medications Ordered Filled Start Stop Current Ordering Indication Dosage Frequency Signature Comments Components Medication Medication Date Date Medication? Clinician (SIG) Name Name lisinopril lisinopril 2018-08 Yes Unknown Unknown Unknown 20 20 2-09 mg-hydrochl mg-hydrochl orothiazide orothiazide 12.5 mg 12.5 mg tablet tablet Metoprolol Metoprolol 2018-08 Yes Unknown Unknown Unknown Tartrate Tartrate 17 Prazosin Prazosin 2018-08 Yes Unknown Unknown Unknown CAP* CAP* 2-17 Vital Signs Vital Name Observation Time Observation Value Comments SYSTOLIC mm[Hg] 2019-08-01 18:09:27 89 mm[Hg] mm[Hg] Method: Sit DIASTOLIC mm[Hg] 2019-08-01 18:09:27 52 mm[Hg] mm[Hg] Method: Sit PULSE 2019-08-01 18:09:27 75 /min /min RESP RATE 2019-08-01 18:09:27 20 /min /min TEMP 2019-08-01 18:09:27 99.4 [degF] Procedures This patient has no known procedures. Results Test Description Test Time Test Comments Text Results Atomic Results Result Comments Automated blood platelet mean 2019-08-01 07:02:00 Identifier [id number] Result Unknown volume measurement Time 2019-08-01 07:02:00 Test Item Value Reference Range Comments Automated blood platelet mean volume measurement (test code 7.7 fL Unknown Unknown F = 53040-2) Ordering Physician UnknownAutomated blood hematocrit (percentage)2019-08-01 07: 02:00Identifier [id number] Result Time 2019-08-01 07:02:00Unknown Test Item Value Reference Range Comments Automated blood hematocrit (percentage) (test 25 % Unknown Unknown F code = 4544-3) Ordering Physician UnknownBlood hemoglobin measurement (mass/volume)2019-08-01 07:02:00Identifier [id number] Result Time 2019-08-01 07:02:00Unknown Test Item Value Reference Range Comments Blood hemoglobin measurement (mass/volume) 8.6 g/dL Unknown Unknown F (test code = 718-7) Ordering Physician UnknownAutomated blood platelet count (number/volume) 07:02:00Identifier 777-3 Result Time 2019-08-01 07:02:00Unknown Test Item Value Reference Range Comments Automated blood platelet count 162 10^3/uL Unknown Unknown F (number/volume) (test code = 777-3) Ordering Physician UnknownSerum or plasma calcium measurement (mass/volume)07-31 05:04:00Identifier [id number] Result Time 2019-07-31 05:04:00Unknown Test Item Value Reference Range Comments Serum or plasma calcium measurement 8.4 mg/dL Unknown Unknown F (mass/volume) (test code = 06187-1) Ordering Physician UnknownSerum or plasma carbon dioxide, total measurement ( moles/volume)2019-07-31 05:04:00Identifier 2027- Result Time 2019-07-31 05:04: 00Unknown Test Item Value Reference Range Comments Serum or plasma carbon dioxide, total 28 mmol/L Unknown Unknown F measurement (moles/volume) (test code = 2028-9) Ordering Physician UnknownSerum or plasma chloride measurement (moles/volume) 2019-07-31 05:04:00Identifier 2075-0 Result Time 2019-07-31 05:04:00Unknown Test Item Value Reference Range Comments Serum or plasma chloride measurement 103 mmol/L Unknown Unknown F (moles/volume) (test code = 2075-0) Ordering Physician UnknownSerum or plasma creatinine measurement (mass/volume) 2019-07-31 05:04:00Identifier 2160-0 Result Time 2019-07-31 05:04:00Unknown Test Item Value Reference Range Comments Serum or plasma creatinine measurement 1.15 mg/dL Unknown Unknown F (mass/volume) (test code = 2160-0) Ordering Physician UnknownSerum glucose measurement (mass/volume)2019-07-31 05: 04:00Identifier [id number] Result Time 2019-07-31 05:04:00Unknown Test Item Value Reference Range Comments Serum glucose measurement (mass/volume) 102 mg/dL Unknown Unknown F (test code = 2345-7) Ordering Physician UnknownSerum or plasma potassium measurement (moles/volume) 2019-07-31 05:04:00Identifier [id number] Result Time 2019-07-31 05:04:00Unknown Test Item Value Reference Range Comments Serum or plasma potassium measurement 4.0 mmol/L Unknown Unknown F (moles/volume) (test code = 2823-3) Ordering Physician UnknownSerum or plasma sodium measurement (moles/volume)07-31 05:04:00Identifier 2951-2 Result Time 2019-07-31 05:04:00Unknown Test Item Value Reference Range Comments Serum or plasma sodium measurement 136 mmol/L Unknown Unknown F (moles/volume) (test code = 2951-2) Ordering Physician UnknownSerum or plasma urea nitrogen measurement (mass/volume )2019-07-31 05:04:00Identifier 3094-0 Result Time 2019-07-31 05:04:00Unknown Test Item Value Reference Range Comments Serum or plasma urea nitrogen measurement 22 mg/dL Unknown Unknown F (mass/volume) (test code = 3094-0) Ordering Physician UnknownSerum or plasma urea nitrogen/creatinine [id number] 05:04:00Identifier [id number] Result Time 2019-07-31 05:04:00Unknown Test Item Value Reference Range Comments Serum or plasma urea nitrogen/creatinine 19.1 Unknown Unknown F ratio (test code = 3097-3) Ordering Physician UnknownSerum or plasma anion [id number] 05:04: 00Identifier [id number] Result Time 2019-07-31 05:04:00Unknown Test Item Value Reference Range Comments Serum or plasma anion gap (test code = 5 mmol/L Unknown Unknown F 26706-0) Ordering Physician UnknownEstimated glomerular filtration rate (GFR) non- [id number] 05:04:00Identifier [id number] Result Time 2019-07-31 05: 04:00Unknown Test Item Value Reference Range Comments Estimated glomerular filtration rate (GFR) 64.9 Unknown Unknown F non- (test code = 04201-0) Ordering Physician Unknown
--- OUTSIDE RECORDS SUMMARY | 2019-10-16 04:28 | XMS REPORT | Continuity of Care Document ---
:1960 External Reference #:[id number] Author Name Latanya Clark M.D. (transmitted by agent of provider Etelvina Moralez) Address [address] [place] [phone] Care Team Providers Name Role Phone John Castillo MD - Family Medicine Care Team Information Media Consultant Problems Active Problems Provider Date Localized, primary osteoarthritis Latanya Clark M.D. Onset: 01/27/2019 Localized, primary osteoarthritis of the pelvic Latanya Clark M.D. Onset: region and thigh Other tear of medial meniscus, current injury, Latanya Clark M.D. Onset: left knee, subsequent encounter Prosthetic arthroplasty of the hip Latanya Clark M.D. Onset: 08/04/2019 Social History Type Date Description Comments Sex Unknown ETOH Use Currently consumes alcohol Tobacco Use Start: Unknown End: Patient is a former smoker Unknown Smoking Status Reviewed: 08/27/19 Patient is a former smoker Exercise Type/Frequency Exercises regularly Allergies, Adverse Reactions, Alerts Description No Known Drug Allergies Medications Active Medications SIG Qnty Indications Ordering Date Provider MS Contin Take 1 tab by 14tabs Latanya Clark, 08/02/2019 30mg Tablets ER mouth every 12 M.D. hours as needed for pain. Please decrease to once per day as soon as possible. Amoxicillin take 4 tablets by 4tabs Latanya Clark, 04/17/2019 500mg Tablets mouth 1 hour M.D. before procedure Cyclobenzaprine HCL take 1 tab three 30tabs [...] mouth every Unknown hiazide day 20-12.5mg Tablets Metoprolol Succinate ER 1 by mouth every Unknown day 25mg Tablets ER 24HR Omeprazole 1 by mouth every Unknown 20mg Capsules DR day History Medications Lovenox inject 30 mg once 14units Z47.1 Latanya Clark, 08/11/2019 - daily for the next 14 M.D. 08/26/2019 30mg/0.3ML days Solution Oxycodone-Acetamin 1-2 tabs by mouth 60tabs Latanya Clark, 08/02/2019 - ophen every 4 hours for pain M.D. 08/26/2019 5-325mg Tablets Lovenox inject 40 mg ( 0.4ml) 4ml Latanya Clark, 08/02/2019 - subcutaneously daily M.D. 08/11/2019 40mg/0.4ML until therapeutic Solution Oxycodone HCL ER 1 by mouth every 12 14tabs Latanya Clark, 03/28/2019 - hours as needed pain M.D. 05/01/2019 30mg Tab ER 12H Abuse-Det Oxycodone HCL 1 by mouth every 4 42tabs Latanya Clark, 03/28/2019 - hours as needed M.D. 08/26/2019 10mg Tablets breakthru pain Medications Administered in Office Medication SIG Qnty Indications Ordering Provider Date No Injection Latanya Clark M.D. 04/18/2019 Injection Depomedrol 40MG Latanya Clark M.D. 04/18/2019 Injection Synvisc Or Synvisc-One Injection 1 Latanya Clark M.D. 02/17/2019 MG Injection Depomedrol 40MG Latanya Clark M.D. 01/13/2019 Injection Immunizations Description No Information Available Vital Signs Date Vital Result Comment 08/27/2019 10:18am Height 73 inches 6'1" Weight 260.00 lb Heart Rate 51 /min BP Systolic 114 mmHg BP Diastolic 70 mmHg Body Temperature 97.0 F Pain Level 0 BMI (Body Mass Index) 34.3 kg/m2 08/11/2019 1:01pm Height 73 inches 6'1" Weight 260.00 lb Heart Rate 52 /min BP Systolic 112 mmHg BP Diastolic 68 mmHg Respiratory Rate 18 /min Pain Level 8 BMI (Body Mass Index) 34.3 kg/m2 Results Test Acquired Date Facility Test Result H/L Range Note Inr/Protime 07/21/2019 [facility] Inr 0.98 Normal 0.82-1.[address] [place] [address] [phone] Laboratory test 07/21/2019 [facility] Partial 36.8 seconds Normal 26.0-38.[address] [place] [address] Time PTT [phone] Type & Screen 07/21/2019 [facility] Patient AB Negative [address] [place] [address] [phone] Antibody Screen NEGATIVE Xray 04/18/2019 [facility] Inj/Aspir Major <pending> JT Or Bursa W/ US Inr/Protime 03/19/2019 [facility] Inr 0.97 Normal 0.82- 2, [address] 1.09 [place] [address] [phone] Laboratory test 03/19/2019 [facility] Partial Thrombo 32.7 seconds Normal 26.0- [address] Time PTT 38.0 [place] [address] [phone] Type & Screen 03/19/2019 [facility] Patient Blood AB Negative [address] [place] [address] [phone] Antibody Screen NEGATIVE 1 Standard intensity warfarin therapeutic range: 2.0-3.0 High intensity warfarin therapeutic range: 2.5-3.5 2 PAIN IN LEFT KNEE, UNILATERAL PRIMARY OSTEOARTHRIT 3 Standard intensity warfarin therapeutic range: 2.0-3.0 High intensity warfarin therapeutic range: 2.5-3.5 4 AA 03/27 Procedures Date Code Description Status 07/29/2019 75728 THR Total Hip Replacement Completed 07/29/2019 66291 THR Total Hip Replacement Completed 07/21/2019 10585 EKG, Interpretation Only Completed 04/18/201911 Inj/Aspir Major JT Or Bursa W/ US Completed 03/27/2019 16932 TKR Total Knee Replacement Completed 03/27/2019 07809 TKR Total Knee Replacement Completed Medical Devices Description No Information Available Encounters Type Date Location Provider Dx Diagnosis Office Visit 07/30/2019 [facility] Stephane Abrams MD I10 Essential ( primary) 10:52a izabella Navarrete Hospitalists hypertension R33.9 Retention of urine, unspecified Office Visit 07/29/2019 [facility] Stephane Abrams, I10 Essential 10:51a izabella Navarrete MD (primary) Hospitalists hypertension Office Visit 06/16/2019 [facility] Z96.652 Presence of left 8:15a at [place] Clark M.D. artificial knee joint Z47.1 Aftercare following joint [...] and abscess w/o bleeding Office Visit 04/13/2019 [facility] N17.9 Acute kidney 10:04a izabella Navarrete NP failure, Hospitalists unspecified R53.81 Other malaise N18.9 Chronic kidney disease, unspecified R10.9 Unspecified abdominal pain Office Visit 04/10/2019 [facility] Rosemary N17.9 Acute kidney 10:02a izabella Navarrete PA failure, Hospitalists unspecified R53.81 Other malaise I12.9 Hypertensive chronic kidney disease w stg 1-4/unsp chr kdny N18.9 Chronic kidney disease, unspecified Office Visit 03/27/2019 10:13a [facility] Lydia Z96.652 Presence of left izabella Navarrete D.O. artificial knee Hospitalists joint I10 Essential (primary) hypertension R09.02 Hypoxemia G47.33 Obstructive sleep apnea (adult) (pediatric) Office Visit 03/10/2019 8:45a [facility] Latanya Clark, M25.562 Pain in left at [place] M.DMarta knee M17.12 Unilateral primary osteoarthritis, left knee M25.462 Effusion, left knee Assessments Date Code Description Provider 08/27/2019 M25.552 Pain in left hip Latanya Clark M.D. 08/27/2019 Z96.642 Presence of left artificial hip joint Latanya Clark M.D. 08/27/2019 Z47.1 Aftercare following joint replacement Latanya Clark M.D. surgery 08/11/2019 M25.552 Pain in left hip Latanya Clark M.D. 08/11/2019 Z96.642 Presence of left artificial hip joint Latanya Clark M.D. 08/11/2019 Z47.1 Aftercare following joint replacement Latanya Clark M.D. surgery 08/04/2019 M25.552 Pain in left hip Latanya Clark M.D. 08/04/2019 Z96.642 Presence of left artificial hip joint Latanya Clark M.D. 08/04/2019 Z47.1 Aftercare following joint replacement Latanya Clark M.D. surgery 07/30/2019 I[facility] Ess[facility] (primary) hypertension Stephane Abrams MD 07/30/2019 R33.9 Retention of urine, unspecified Stephane Abrams MD 07/29/2019 M16.12 Unilateral primary osteoarthritis, Harris Plaza, PA-C left hip 07/29/2019 M16.12 Unilateral primary osteoarthritis, Latanya Clark M.D. left hip 07/29/2019 I10 Essential (primary) hypertension Stephane Abrams MD 07/21/2019 R94.31 Abnormal electrocardiogram [ECG] [EKG] Nan Dowling MD, [facility] [place] 07/21/2019 M25.552 Pain in left hip Latanya Clark M.D. 07/21/2019 M16.12 Unilateral primary osteoarthritis, Latanya Clark M.D. left hip 06/16/2019 Z96.652 Presence of left artificial knee joint Latanya Clark M.D. 06/16/2019 Z47.1 Aftercare following joint replacement Latanya Clark M.D. surgery 06/16/2019 M25.552 Pain in left hip Latanya Clark M.D. 06/16/2019 M16.12 Unilateral primary osteoarthritis, Latanya Clark M.D. left hip 05/30/2019 K57.20 Diverticulitis of large intestine with John Byrne PA-C perforation and abscess without bleeding 05/29/2019 K57.20 Diverticulitis of large intestine with John Byrne PA-C perforation and abscess without bleeding 05/02/2019 Z96.652 Presence of left artificial knee joint Latanya Clark M.D. 05/02/2019 M16.12 Unilateral primary osteoarthritis, Latanya Clark M.D. left hip 05/02/2019 M25.552 Pain in left hip Latanya Clark M.D. 05/02/2019 Z47.1 Aftercare following joint replacement Latanya Clark M.D. surgery 04/18/2019 Z96.652 Presence of left artificial knee joint Latanya Clark M.D. 04/18/2019 M17.12 Unilateral primary osteoarthritis, Latanya Clark M.D. left knee 04/18/2019 M25.552 Pain in left hip Latanya Clark M.D. 04/18/2019 M16.12 Unilateral primary osteoarthritis, Latanya Clark M.D. left hip 04/18/2019 Z47.1 Aftercare following joint replacement Latanya Clark M.D. surgery 04/13/2019 N17.9 Acute kidney failure, unspecified Nupur Shortle, CLEANER AND POLISHER 04/13/2019 R53.81 Other malaise Nupur Shortle, CLEANER AND POLISHER 04/13/2019 N18.9 Chronic kidney disease, unspecified Nupur Shortle, CLE[employer]ER AND POLISHER 04/13/2019 R10.9 Unspecified abdominal pain Nupur Shortle, CLE[employer]ER AND POLISHER 04/12/2019 R53.81 Other malaise Nupur Shortle, CLE[employer]ER AND POLISHER 04/12/2019 N17.9 Acute kidney failure, unspecified Nupur Shortle, CLE[employer]ER AND POLISHER 04/12/2019 R10.9 Unspecified abdominal pain Nupur Shortle, CLE[employer]ER AND POLISHER 04/11/2019 N17.9 Acute kidney failure, unspecified Rosemary Winter, PA 04/11/2019 R53.81 Other PAMELLA Isidro 04/11/2019 I12.9 Hypertensive chronic kidney disease PAMELLA Pablo with stage 1 through stage 4 chronic kidney disease, or unspecified chronic kidney disease 04/11/2019 N18.9 Chronic kidney disease, unspecified PAMELLA Pablo 04/10/2019 N17.9 Acute kidney failure, unspecified PAMELLA Pablo 04/10/2019 Z96.652 Presence of left artificial knee joint Matias Hawthorne MD 04/10/2019 Z47.1 Aftercare following joint replacement Matias Hawthorne MD surgery 04/10/2019 R53.81 Other marelyse PAMELLA Pablo 04/10/2019 I12.9 Hypertensive chronic kidney disease PAMELLA Pablo with stage 1 through stage 4 chronic kidney disease, or unspecified chronic kidney disease 04/10/2019 N18.9 Chronic kidney disease, unspecified PAMELLA Pablo 03/27/2019 Z96.652 Presence of left artificial knee joint Alex LizO. 03/27/2019 I10 Essential (primary) hypertension Alex LizO. 03/27/2019 M17.12 Unilateral primary osteoarthritis, Katiana Khan, RPA-C left knee 03/27/2019 R09.02 Hypoxemia Alex LizO. 03/27/2019 G47.33 Obstructive sleep apnea (adult) Alex LizOMarta (pediatric) 03/27/2019 M17.12 Unilateral primary osteoarthritisLatanya M.D. left knee 03/19/2019 M25.562 Pain in left knee Latanya Clark M.D. 03/19/2019 M17.12 Unilateral primary osteoarthritisLatanya M.D. left knee 03/10/2019 M25.562 Pain in left knee Latanya Clark M.D. 03/10/2019 M17.12 Unilateral primary Latanya stallworth M.D. left knee 03/10/2019 M25.462 Effusion, left knee Latanya Clark M.D. Plan of Treatment Future Appointment(s):10/08/2019 8:30 am - Latanya Calrk M.D. at [facility]/27/2019 - Latanay Clark M.D.M25.552 Pain in left hipFollow up:Follow up: 6 qhffzK13.642 Presence of left artificial hip cnjlgV40.1 Aftercare following joint replacement surgery Functional Status Description No Information Available Mental Status Description No Information Available Referrals Description No Information Available
--- OUTSIDE RECORDS SUMMARY | 2019-10-16 04:28 | XMS REPORT | Continuity of Care Document ---
:1960 External Reference #:[id number] Author Name Latanya Clark M.D. (transmitted by agent of provider Etelvina Moralez) Address [address] [place] [phone] Care Team Providers Name Role Phone John Castillo MD - Family Medicine Care Team Information Career Development Engineer [phone] Problems Active Problems Provider Date Localized, primary [...] Test Result H/L Range Note Inr/Protime 07/21/2019 [facility] Inr 0.98 Normal 0.82-1.[address] [place] [address] [phone] Laboratory test 07/21/2019 [facility] Partial 36.8 seconds Normal 26.0-38.[address] [place] [address] Time PTT [phone] Type & Screen 07/21/2019 [facility] Patient AB Negative [address] [place] [address] [phone] Antibody Screen NEGATIVE Xray 04/18/2019 [facility] Inj/Aspir Major <pending> JT Or Bursa W/ US Inr/Protime 03/19/2019 [facility] Inr 0.97 Normal 0.82- 2, [address] 1[address]09 [place] [address] [phone] Laboratory test 03/19/2019 [facility] Partial Thrombo 32.7 seconds Normal 26.0- [address] Time PTT 38.0 [place] [address] [phone] Type & Screen 03/19/2019 [facility] Patient Blood AB Negative [address] [place] [address] [phone] Antibody Screen NEGATIVE 1 Standard intensity warfarin therapeutic range: 2.0-3.0 High intensity warfarin therapeutic range: 2.5-3.5 2 PAIN IN LEFT KNEE, UNILATERAL PRIMARY OSTEOARTHRIT 3 Standard intensity warfarin therapeutic range: 2.0-3.0 High intensity warfarin therapeutic range: 2.5-3.5 4 AA 03/27 Procedures Date Code Description Status 07/29/2019 04125 THR Total Hip Replacement Completed 07/29/2019 76612 THR Total Hip Replacement Completed 07/21/2019 18136 EKG, Interpretation Only Completed 04/18/201911 Inj/Aspir Major JT Or Bursa W/ US Completed 03/27/2019 64669 TKR Total Knee Replacement Completed 03/27/2019 89316 TKR Total Knee Replacement Completed Medical Devices Description No Information Available Encounters Type Date Location Provider Dx Diagnosis Office Visit 07/30/2019 [facility] Stephane Abrams MD I10 Essential ( primary) 10:52a izabella Navarrete Hospitalists hypertension R33.9 Retention of urine, unspecified Office Visit 07/29/2019 [facility] Stephane Abrams, I10 Essential 10:51a izabella Navarrete MD (primary) Hospitalists hypertension Office Visit 06/16/2019 [facility] Z96.652 Presence of left 8:15a at [...] and abscess w/o bleeding Office Visit 04/13/2019 [facility] N17.9 Acute kidney 10:04a izabella Navarrete NP failure, Hospitalists unspecified R53.81 Other malaise N18.9 Chronic kidney disease, unspecified R10.9 Unspecified abdominal pain Office Visit 04/10/2019 [facility] Rosemary N17.9 Acute kidney 10:02a izabella Navarrete PA failure, Hospitalists unspecified R53.81 Other malaise I12.9 Hypertensive chronic kidney disease w stg 1-4/unsp chr kdny N18.9 Chronic kidney disease, unspecified Office Visit 03/27/2019 10:13a [facility] Lydia Z96.652 Presence of left izabella Navarrete D.O. artificial knee Hospitalists joint I10 Essential (primary) hypertension R09.02 Hypoxemia G47.33 Obstructive sleep apnea (adult) (pediatric) Office Visit 03/10/2019 8:45a [facility] Latanya Clark, M25.562 Pain in left at [place] M.DMarta knee M17.12 Unilateral primary osteoarthritis, left [...] MD 07/30/2019 R33.9 Retention of urine, unspecified Stehpane Abrams MD 07/29/2019 M16.12 Unilateral primary osteoarthritis, Harris Plaza, PA-C left hip 07/29/2019 M16.12 Unilateral primary osteoarthritis, Latanya Clark M.D. left hip 07/29/2019 I10 Essential (primary) hypertension Stephane Abrams MD 07/21/2019 R94.31 Abnormal electrocardiogram [ECG] [EKG] Nan Dowling MD, [facility] [place] 07/21/2019 M25.552 Pain in left hip Latanya [...] N17.9 Acute kidney failure, unspecified Nupur Shortle, COMMUNITY HEALTH EDUCATOR 04/13/2019 R53.81 Other malaise Nupur Shortle, COMMUNITY HEALTH EDUCATOR 04/13/2019 N18.9 Chronic kidney disease, unspecified Nupur Shortle, COMMUNITY HEALTH EDUCATOR 04/13/2019 R10.9 Unspecified abdominal pain Nupur Shortle, COMMUNITY HEALTH EDUCATOR 04/12/2019 R53.81 Other malaise Nupur Shortle, COMMUNITY HEALTH EDUCATOR 04/12/2019 N17.9 Acute kidney failure, unspecified Nupur Shortle, COMMUNITY HEALTH EDUCATOR 04/12/2019 R10.9 Unspecified abdominal pain Nupur Shortle, COMMUNITY HEALTH EDUCATOR 04/11/2019 N17.9 Acute kidney failure, unspecified Rosemary [...] Treatment Future Appointment(s):10/08/2019 8:30 am - Latanya Clark M.D. at [facility] at [facility]/27/2019 - Latanya Clark M.D.M25.552 Pain in left hipFollow up:Follow up: 6 irjrnP94.642 Presence of left artificial hip jrzxvH24.1 Aftercare following joint replacement surgery Functional Status Description No Information Available Mental Status Description No Information Available Referrals Description No Information Available
--- OUTSIDE RECORDS SUMMARY | 2019-10-16 04:28 | XMS REPORT ---
:1960 Author Organization [facility] Care Team Providers Name Role Phone Unavailable [...] Automated blood platelet mean 2019-08-01 07:02:00 Identifier [id number] Result Unknown volume measurement Time 2019-08-01 07:02:00 Test Item Value Reference Range Comments Automated blood platelet mean volume measurement (test code 7.7 fL Unknown Unknown F = 43662-7) Ordering Physician UnknownAutomated blood hematocrit (percentage)2019-08-01 07: [...] UnknownSerum or plasma calcium measurement (mass/volume)07-31 05:04:00Identifier [id number] Result Time 2019-07-31 05:04:00Unknown Test Item Value Reference Range Comments Serum or plasma calcium measurement 8.4 mg/dL Unknown Unknown F (mass/volume) (test code = 59870-0) Ordering Physician UnknownSerum or plasma carbon dioxide, [...] Ordering Physician UnknownSerum or plasma urea nitrogen/creatinine [id number] 05:04:00Identifier [id number] Result Time 2019-07-31 05:04:00Unknown Test Item Value Reference Range Comments Serum or plasma urea nitrogen/creatinine 19.1 Unknown Unknown F ratio (test code = 3097-3) Ordering Physician UnknownSerum or plasma anion [id number] 05:04: 00Identifier [id number] Result Time 2019-07-31 05:04:00Unknown Test Item Value Reference Range Comments Serum or plasma anion gap (test code = 5 mmol/L Unknown Unknown F 14160-1) Ordering Physician UnknownEstimated glomerular filtration rate (GFR) non- [id number] 05:04:00Identifier [id number] Result Time 2019-07-31 05: 04:00Unknown Test Item Value Reference Range Comments Estimated glomerular filtration rate (GFR) 64.9 Unknown Unknown F non- (test code = 54139-5) Ordering Physician Unknown
[2019-10-16] MEDS ORDERED: Oseltamivir CAP* 75 MG CAP PO ONE (04:47)
[2019-10-16 04:48] LABS: BUN/Creatinine Ratio 15.3 (8-20); EGFR African American 76.2 (>60); Potassium 3.8 mmol/L (3.5-5.0)
[2019-10-16 04:49] LABS: Albumin 4.3 g/dL (3.2-5.2); Albumin/Globulin Ratio 1.7 (1-3); Calcium 9.5 mg/dL (8.6-10.3); Globulin 2.6 g/dL (2-4); Total Bilirubin 1.2 mg/dL (0.2-1.0); Total Protein 6.9 g/dL (6.4-8.9)
[2019-10-16 04:50] LABS: Urine Appearance Clear; Urine Bilirubin Negative (Negative); Urine Blood 1+ (Negative); Urine Color Yellow; Urine Glucose Negative (Negative); Urine Ketones Negative (Negative); Urine Nitrite Negative (Negative); Urine Protein 1+(30 mg/dL) (Negative); Urine Specific Gravity 1.017 (1.010-1.030); Urine Urobilinogen Negative (Negative)
[2019-10-16 04:53] LABS: Hematocrit 41 % (42-52); Mean Corpuscular Hemoglobin 29 pg (27-31); Mean Corpuscular Volume 86 fL (80-94); Red Blood Count 4.78 10^6 /uL (4.18-5.48); White Blood Count 4.2 10^3/uL (3.5-10.8)
[2019-10-16 04:54] LABS: Urine Bacteria Absent (Absent); Urine Red Blood Cell 3+(>10/hpf) (Absent); Urine White Blood Cell Absent (Absent)
[2019-10-16 04:54] LABS: ABS Lymphocytes 0.4 10^3/ul (1.0-4.8); ABS Monocytes 0.6 10^3/ul (0-0.8); ABS Neutrophils 3.2 10^3/ul (1.5-7.7); Lymphocyte % 8.3 %; Mean Corpuscular HGB Conc 34 g/dL (31-36); Mean Platelet Volume 8.4 fL (7.4-10.4); Platelet Count 176 10^3/uL (150-450); Red Cell Distribution Width 16 % (10-15)
[2019-10-16 04:55] LABS: Eosinophil % 0.5 %; Nucleated Red Blood Cells % 0.3
[2019-10-16 04:56] LABS: Influenza A Molecular POSITIVE (Negative)
[2019-10-16 04:57] LABS: INR 1.13 (0.82-1.09)
--- NOTE | 2019-10-16 04:58 | ED ---
Influenza-Like Illness - HPI Summary HPI Summary: Patient is a 58 y/o M presenting to [facility] with a chief complaint of flu-like symptoms onset yesterday. He reports sore throat for a week with development of myalgias, headaches, chest pain from cough, nausea, decreased appetite, and fever worsening since yesterday morning. He denies vomiting. He has taken Coricidin for his symptoms. Pain is rated 4/10 in severity. There are no aggravating or alleviating factors. No one else at home is sick with similar symptoms. PMHx: HTN, HTN, sleep apnea, migraine/headaches, tonsillectomy, bilateral knee replacements, hip replacement, carpal tunnel. Former smoker, occasional EtOH, marijuana use. Medications reviewed. Allergies noted. - History of Current Complaint Time Seen by Provider: 10/16/19 04:30 Hx Obtained From: Patient Onset/Duration: Sudden Onset, Lasting Hours, Still Present Severity: Moderate Associated Signs & Symptoms: Fever, Myalgia, Cough, Sore Throat, Headache, Vomiting - Allergy/Home Medications Allergies/Adverse Reactions: Allergies Allergy/AdvReac Type Severity Reaction Status Date / Time No Known Allergies Allergy Verified 07/29/19 13:33 Home Medications: Home Medications Lisinopril/Hydrochlorothiazide [Lisinopril-Hctz 20-12.5 mg Tab] 1 each PO QAM [History Confirmed 07/29/19] Metoprolol Tartrate 50 mg PO BID 07/29/19 [History Confirmed 07/29/19] Prazosin CAP* 5 mg PO BEDTIME 07/29/19 [History Confirmed 07/29/19] oxyCODONE/Acetamin 5/325 MG* [Percocet 5/325 TAB*] 2 tab PO Q4H PRN tab [Rx] PMH/Surg Hx/FS Hx/Imm Hx Endocrine/Hematology History: Denies: Hx Diabetes Cardiovascular History: Reports: Hx Hypercholesterolemia, Hx Hypertension Denies: Hx Pacemaker/ICD Respiratory History: Reports: Hx Sleep Apnea Denies: Hx Asthma, Hx Chronic Obstructive Pulmonary Disease (COPD) History: Denies: Hx Renal Disease Musculoskeletal History: Reports: Hx Arthritis Sensory History: Reports: Hx Cataracts Denies: Hx Contacts or Glasses, Hx Hearing Aid Opthamlomology History: Reports: Hx Cataracts Denies: Hx Contacts or Glasses Neurological History: Reports: Hx Headaches, Hx Migraine - NONE IN YEARS Denies: Hx Dementia, Hx Seizures Psychiatric History: Denies: Hx Panic Disorder - Cancer History Hx Chemotherapy: No - Surgical History Surgical History: Yes Surgery Procedure, Year, and Place: LEFT KNEE MENISCUS/ARTHROSCOPIC SCRAPPING SURGERY;. RIGHT and left KNEE REPLACEMENT;. BILAT CARPAL TUNNEL;. CATARACTS; . TONSILLECTOMY; Hx Anesthesia Reactions: No Infectious Disease History: Denies: Traveled Outside the [place] in Last 30 Days - Family History Known Family History: Negative: Hypertension, Diabetes - Social History Alcohol Use: Occasionally Alcohol Amount: FEW DRINKS/YR Hx Substance Use: Yes Substance Use Type: Reports: Marijuana Hx Tobacco Use: Yes Smoking Status (MU): Former Smoker Type: Cigarettes Amount Used/How Often: 3 PPWEEK, 25 YRS Length of Time of Smoking/Using Tobacco: 25 YRS Have You Smoked in the Last Year: No - Additional Comments History Additional Comments: HTN, HLD, sleep apnea, headache/migraines, tonsillectomy Review of Systems - ROS Summary Review of Systems Summary: Home Medications Medication Instructions Recorded Confirmed Type Lisinopril/Hydrochlorothiazide 1 each PO QAM 07/21/19 07/29/19 History [Lisinopril-Hctz 20-12.5 mg Tab] Metoprolol Tartrate 50 mg PO BID 07/29/19 07/29/19 History Prazosin CAP* 5 mg PO BEDTIME 07/29/19 07/29/19 History oxyCODONE/Acetamin 5/325 MG* 2 tab PO Q4H PRN tab 08/02/19 Rx [Percocet 5/325 TAB*] Positive: Fever Positive: Chest Pain - related to cough Positive: Cough Positive: Vomiting, Nausea, Other - decreased appetite Positive: Myalgia Positive: Headache All Other Systems Reviewed And Are Negative: Yes Physical Exam - Summary Physical Exam Summary: General: Mildly ill-appearing, Well-developed, Obese, elderly male. No acute distress. HEENT: Normocephalic, Atraumatic. Eyes: Conjuctiva normal, PERRL. Oropharynx: Oropharynx is erythematous, Dry mucous membranes, (-) exudates. Nares: Clear nasal discharge. Neck: Soft, FROM, (-) lymphadenopathy, (-) thyromegaly, (-) JVD. Cardiovascular: Normal sinus rhythm, (-) murmur. Lungs: Clear to auscultation bilaterally, Equal breath sounds bilaterally, Transmitted upper air way noises, (-) wheezes, (-) rales, (-) rhonchi. Abdomen: Soft, non-tender, non-distended, (-) organomegaly, normal bowel sounds. Back: (-) CVA tenderness Extremities: No edema. Skin: Warm, dry, (-) rash. Neuro: Alert and oriented x3, moves all extremities equally. No ataxia. No gait disturbance. No sensory deficit. Normal strength, normal sensation. Psychiatric: Mood normal, affect normal. Triage Information Reviewed: Yes Vital Signs Reviewed: Yes Procedures - Sedation Patient Received Moderate/Deep Sedation with Procedure: No Diagnostics - Laboratory Lab Results: Lab Results 10/16/19 10/16/19 10/16/19 Range/Units 03:00 03:00 03:00 Sodium 137 (135-145) mmol/L Potassium 3.8 (3.5-5.0) mmol/L Chloride 104 (101-111) mmol/L Carbon Dioxide 25 (22-32) mmol/L Anion Gap 8 (2-11) mmol/L BUN 18 (6-24) mg/dL Creatinine 1.18 H (0.67-1.17) mg/dL Est GFR ( Amer) 76.2 (>60) Est GFR (Non-Af Amer) 63.0 (>60) BUN/Creatinine Ratio 15.3 (8-20) Glucose 102 H (70-100) mg/dL Lactic Acid 1.3 (0.5-2.0) mmol/L Calcium 9.5 (8.6-10.3) mg/dL Total Bilirubin 1.20 H (0.2-1.0) mg/dL AST 14 (13-39) U/L ALT 14 (7-52) U/L Alkaline Phosphatase 76 (34-104) U/L Total Protein 6.9 (6.4-8.9) g/dL Albumin 4.3 (3.2-5.2) g/dL Globulin 2.6 (2-4) g/dL Albumin/Globulin Ratio 1.7 (1-3) Influenza A (Rapid) Pending Influenza B (Rapid) Pending Result Diagrams: 10/16/19 03:00 10/16/19 03:00 Lab Statement: Any lab studies that have been ordered have been reviewed, and results considered in the medical decision making process. - Radiology CXR Radiology Interpretation Completed By: ED Physician Summary of Radiographic Findings: No infiltrate. No pleural effusion. ED physician has reviewed and interpreted this imaging scan. Pending official read. Re-Evaluation - Re-Evaluation First Eval Re-Evaluation Time: 02:45 Comment: fever of 102.7F Second Eval Re-Evaluation Time: 05:00 Comment: I discussed all results. Discussed all symptoms that warrant return to the ED. Flu Symptom Course/Dx - Course Course Of Treatment: 58-year-old male presents from home with acute illness. He states he developed headache and cough yesterday. States he has just progressed into worsening cough and severe body aches. Headache is severe. Nausea and decreased appetite. Fevers. No known ill contacts. On physical exam he is mildly ill-appearing good breath sounds bilaterally. Chest x-ray without significant abnormality noted. Workup demonstrates positive flu A. Patient is given IV fluids, Zofran, Toradol, Tylenol. Started on Tamiflu. Advised plenty of fluids and rest. Expect significant symptoms for 7 days. Follow-up with PCP. Follow-up sooner for any worsening symptoms. - Diagnoses Provider Diagnoses: Influenza A Discharge ED - Sign-Out/Discharge Documenting (check all that apply): Patient Departure - discharge - Discharge Plan Condition: Stable Disposition: HOME Patient Education Materials: Influenza (DC) Referrals: John Castillo MD [Primary Care Provider] - 3 Days Additional Instructions: Follow up with your primary care provider in 2-3 days. Return to the emergency department for any new or worsening symptoms. - Billing Disposition and Condition Condition: STABLE Disposition: Home - Attestation Statements Document Initiated by Danaibe: Yes Documenting Scribe: Marisol Currie Provider For Whom Vielka is Documenting (Include Credential): Jacklyn Schultz MD Scribe Attestation: Marisol Avelar scribed for Jacklyn Schultz MD on 10/16/19 at 0513. Scribe Documentation Reviewed: Yes Provider Attestation: The documentation as recorded by the Marisol young accurately reflects the service I personally performed and the decisions made by me, Jacklyn Schultz MD Status of Scribe Document: Viewed
[2019-10-16 05:30] VITALS: BP 135/71
--- NOTE | 2019-10-16 10:52 | ED ---
Imaging and Labs Follow Up Follow Up Type: Imaging Imaging Result: Patient Name: MARIAJOSE MALONE Medical Record#: [id number] Ordering Physician: Jacklyn Schultz MD Acct.#: [id number] : 1960 Age: 58 Sex: M Location: EMERGENCY DEPARTMENT Exam Date: 10/16/19 ADM Status: DEP ER Order Information: CHEST AP/PORT Accession Number: [id number] CPT: 19018 INDICATION: Fever, flulike symptoms. COMPARISON: May 29, 2019 TECHNIQUE: Upright AP 0315 hours REPORT: Mild reticulonodular opacities at the bilateral lung bases. Clear pleural spaces. The heart, pulmonary vasculature, and mediastinal contours are unremarkable. IMPRESSION: #. Mild bibasilar airspace opacities which may represent inflammatory infiltrate or atelectasis. R1F Preliminary Imaging Read R1F <Electronically signed by Fabio Porter MD in OV> 10/16/19756 Dictated By: Fabio Porter MD Dictated Date/Time: 10/16/19754 Transcribed Date/Time: 10/16/19754 Copy to: CC:Jacklyn Schultz MD; Mariajose Castillo MD Imaging - [facility] [address] [address] ph ([phone]) ph ([phone]) ph ([phone]) This report is only to be considered final once signed by the Provider(s) as displayed in the "<Electronically Signed by >" field (s). Absence of a signature indicates the report is in a draft status and still needs to be finalized. In the event this document was created by someone other than the signing Provider, the individual initiating the document will be listed in the "Entered by:" or "Dictated by:" ramos. 1 of 1 Patient Communication/Plan: Pt. positive and treated for influenza. No change in treatment needed at this time. Provider Diagnoses: Influenza A
== END 2019-10-16 05:30 | disposition home or self-care (01) ==
LOC: ED 02:02
DX: J10.1 Influenza due to other identified influenza virus with other respiratory manifestations (principal); R11.0 Nausea; I10 Essential (primary) hypertension; Z79.899 Other long term (current) drug therapy; Z96.653 Presence of artificial knee joint, bilateral; Z96.649 Presence of unspecified artificial hip joint; Z87.891 Personal history of nicotine dependence
CPT/HCPCS: 36415; 71045; 80053; 81003; 81015; 83605; 85025; 85610; 87040; 99283; A9270-GY